=== PATIENT | female | born 1995 | race African-American/Black ===

== ENCOUNTER 2025-09-08 09:04 | Outpatient (OUT) | payer OTHER, SELFPAY ==
--- OUTSIDE RECORDS SUMMARY | 2025-02-02 09:45 | XMS_ITS ---
Author Organization [facility] [facility] Address [address] [place] [address] Care Team Providers Care Director Of Analytics Name Role Phone Liyah Lozada Primary Care Provider REASON FOR VISIT CHECK;F/U Social History Sex Assigned At : Social History Observation Description Sex Assigned At Female Encounters Encounter Location Date Provider Diagnosis [facility] [address] [facility] [place] [address] 02/02/2025 Liyah Lozada Plan Of Treatment Next Appt Details Provider Name:Enedina Deanna, 08:00:00 AM, [address], [place], [address], Provider Name:Sebastian gonzalez, 10/24/2025 10:30:00 AM, [address] [facility] , [address], [place], [address], Provider Name:Diana Cabrera, 02/06/2026 10:20:00 AM, [address], [place], [address], Progress Notes * BERRY DIMAS LDOB:1994 (29 yo F)Acc No.[id number]:02/02/2025 Progress Notes Patient: BERRY WEEMS Provider:?Liyah Lozada NPDOB:1995???Age: 29 Y???Sex:FemaleDate:02/02/2025Phone:[phone]:[address] [facility] [facility]-[id number] Subjective: * Chief Complaints: * C HECK;F/U * Electronic signature of Liyah Lozada CNP on 09/08/2025 at 09:12 AM ESTSign off status: Pending * Appointment Provider: Haily Lozada NP Date: 0 02/02/2025 Generated for Printing/Faxing/eTransmitting on:?09/08/2025 09:12 AM EST
--- OUTSIDE RECORDS SUMMARY | 2025-02-22 08:00 | XMS_ITS ---
Author Organization [facility] Address [address] [place] [address] Care Team Providers Care Sales Enablement Manager Name Role Phone Liyah Lozada Primary Care Provider Guerita Conn [phone] REASON FOR VISIT PERIO MAINT PERIO CHART BWXS Social History Sex Assigned At : Social History Observation Description Sex Assigned At Female Encounters Encounter Location Date Provider Diagnosis [facility] [address] [place] [address] 02/22/2025 Guerita Conn Plan Of Treatment Next Appt Details Provider Name:Enedina Huerta, 08:00:00 AM, [address] [place], [address], Provider Name:Sebastian gonzalez, 10/24/2025 10:30:00 AM, [address] [facility], [address], [place], [address], Provider Name:Diana Cabrera, 02/06/2026 10:20:00 AM, [address] [place], [address], Progress Notes * BERRY DIMAS LDOB:1994 (29 yo F)Acc No.[id number]:02/22/2025 Patient:?BERRY DIMAS :?Guerita ConnDOB:1995???Age:29 Y???Sex: FemaleDate:02/22/2025Phone:[phone]:[address] [place], [id number]:Liyah Lozada Subjective: * Chief Complaints: * P SIVAKUMAR MAINT PERIO CHART BWXS * Electronic signature of Guerita Conn on 09/08/2025 at 09:12 AM ESTSign off status: Pending * Provider: Miri Conn Date: 0 02/22/2025 Generated for Printing/Faxing/eTransmitting on:?09/08/2025 09:12 AM EST
--- OUTSIDE RECORDS SUMMARY | 2025-09-05 06:30 | XMS_ITS ---
Author Organization [employer] es Address [address] [facility] [place] [address] Care Team Providers Care Paid Search Specialist Name Role Phone Liyah Lozada Primary Care Provider Sebastian Parham [phone] REASON FOR VISIT Dietitian F/U Social History Sex Assigned At : Social History Observation Description Sex Assigned At Female Encounters Encounter Location Date Provider Diagnosis [place] [address] [place] [place] [address] 09/05/2025 Sebastian Parham Type 2 diabetes mellitus [...] once a week for 30 minutes Estimated [place] x 1.2 AF: 1,500 kcals/day for 2lbs/week [...] once a week for 30 minutes Estimated [place] x 1.2 AF: 1,500 kcals/day for 2lbs/week [...] once a week for 30 minutes Estimated [place] x 1.2 AF: 1,500 kcals/day for 2lbs/week [...] Deanna, 08:00:00 AM, [address], [place], [address], Provider Name:Sebastian Castillo , 10/24/2025 10:30:00 AM, [address] [facility], [address], [place], [address], Provider Name:Diana Cabrera, 02/06/2026 10:20:00 AM, [address], [place], [address], Progress Notes * BERRY DIMAS LDOB:1994 (29 yo F)Acc No.[id number]:09/05/2025 Patient:?BERRY DIMAS :?SEBASTIAN PARHAM RDDOB:1995???Age:29 Y ???Sex:FemaleDate:09/05/2025Phone:[phone]:[address] [place] [address] [id number]:Liyah Lozada Subjective: * Chief Complaints: * D [...] but other days no appetite? Grocery Shopping: [employer] Household: Self, and 2 children? Cooking: Self [...] once a week for 30 minutes? Estimated [place] x 1.2 AF: 1,500 kcals/day for 2lbs/week [...] Electronic signature of Sebastian Parham RD on 09/08/2025 at 09:13 AM ESTSign off status: Pending * Provider: Miri PARHAM RD Date: 11/05/2024 Generated for Printing/Faxing/eTransmitting on:?09/08/2025 09:13 AM EST
--- OUTSIDE RECORDS SUMMARY | 2025-09-06 23:59 | XMS_ITS | Continuity of Care Document ---
Author Organization [facility] Address [address] [place] [address] Care Team Providers Care Financial Market Dealer Name Role Phone NONE, XXXX Primary Care Physician Unavailab le Encounter FT_AMBFIN [id number] Date(s): 09/06/25 - 09/06/25 [facility] [address] [place] [address]- Encounter Diagnosis Ureteral stone(Discharge Diagnosis) - 09/06/25 Kidney stones(Discharge Diagnosis) - 09/06/25 Flank pain(Discharge Diagnosis) - 09/06/25 Discharge Disposition: Home (Routine DC) Attending Physician: Lupillo HOLLIS MD Encounter Type: Clinic Allergies, Adverse Reactions, Alerts SubstanceCriticalitySeverityReactionReaction SeverityStatusLatexunknownActive HYDROcodoneRashActive Treatment Plan Future Scheduled Tests Radiology* XR Abdomen 1 View 09/01/25 Immunizations Given and Recorded VaccineDateStatusRefusal Reasoninfluenza virus vaccine, /20/23 Recordedinfluenza virus vaccine, kjatubjhskh34/26/21Recordedinfluenza virus vaccine, inactivated07/18/21Recordedinfluenza virus vaccine, mhywoqvujgp10/5/03 Recordeddiphtheria/pertussis, acel/tetanus adult07/17/22Recorded diphtheria/pertussis, acel/tetanus adult17/6/35RwxojDBYN-NeP-4 (COVID-19) mRNA BNT-162b2 vvu804/05/2296UcgcgxtgXJUL-KcF-0 (COVID-19) mRNA BNT-162b2 vax39// Recordedpoliovirus vaccine, inactivated06/13/02Recordedpoliovirus vaccine, inactivated02/04/02RecordedDTaP, unspecified formulation02/04/02Recorded 1Reason for Medication: Other (see comment) 2Result Comment: 2025-09-06: TPVAL 3Result Comment: 2025-09-06: TPVAL Medications busPIRone Oral, BID Start Date: 09/06/25 Status: Ordered Medication Dispense Status: Completed Total Allowed Fills: 1 Fills Dispensed: 0 hydrOXYzine Start Date: 09/06/25 Status: Ordered Medication Dispense Status: Completed Total Allowed Fills: 1 Fills Dispensed: 0 Keflex 500 mg Cap 500 mg = 1 cap(s), Oral, q12hr, # 20 cap(s), Refills(s) 0, Pharmacy: [facility]/pharmacy #[id number], 160, cm, 09/06/25 15:28:00 EST, Height/Length Dosing, 132.4, kg, 09/06/25 15:28:00 EST, Weight Dosing Start Date: 09/06/25 Status: Ordered Medication Dispense Status: Completed Quantity: 20.0 Unit: cap(s) Total Allowed Fills: 1 Fills Dispensed: 0 ketorolac 10 mg Tab 10 mg = 1 tab(s), Oral, q12hr, PRN for pain, # 10 tab(s), Refills(s) 0, Pharmacy: [facility]/pharmacy #[id number], 160, cm, 09/06/25 15:28:00 EST, Height/Length Dosing, 132.4, kg, 09/06/25 15:28:00 EST, Weight Dosing Start Date: 09/06/25 Status: Ordered Medication Dispense Status: Completed Quantity: 10.0 Unit: tab(s) Total Allowed Fills: 1 Fills Dispensed: 0 Indications: Flank pain, unspecified side; Calculus of ureter; metformin Oral Start Date: 09/06/25 Status: Ordered Medication Dispense Status: Completed Total Allowed Fills: 1 Fills Dispensed: 0 sertraline 50 mg Tab 50 mg = 1 tab(s), Refills(s) 0 Start Date: 09/06/25 Status: Ordered Medication Dispense Status: Completed Total Allowed Fills: 1 Fills Dispensed: 0 tamsulosin 0.4 mg Cap 0.4 mg = 1 cap(s), Oral, Daily, Take for stone passage., # 30 cap(s), Refills(s) 0, Pharmacy: [facility]/pharmacy #[id number], 160, cm, 09/06/25 15:28:00 EST, Height/Length Dosing, 132.4, kg, 09/06/25 15:28:00 EST, Weight Dosing Start Date: 09/06/25 Status: Ordered Medication Dispense Status: Completed Quantity: 30.0 Unit: cap(s) Total Allowed Fills: 1 Fills Dispensed: 0 Indications: Calculus of ureter; Vraylar 1.5 mg oral capsule 1.5 mg = 1 cap(s), Refills(s) 0 Start Date: 09/06/25 Status: Ordered Medication Dispense Status: Completed Total Allowed Fills: 1 Fills Dispensed: 0 Problem List ConditionConfirmationCourseEffective DatesStatusHealth StatusInformantKidney stonesConfirmedActiveMixed anxiety and depressive disorderConfirmedActive TbcspwfdqSeignxenl60/1/15 - 05/06/1663TmzyixsgAnlcushqzIdxbofhas61/1/16 - 07/2017 ResolvedPyelonephritisConfirmedActiveType 2 diabetes mellitusConfirmedActive Ureteric stoneConfirmedActiveUreteral stoneConfirmedActive Procedures ProcedureDateRelated DiagnosisBody SiteStatusCesarean section03/05/17Completed Social History Social History TypeResponseSmoking StatusFormer smoker, quit more than 30 days ago; Tobacco Use: Former smoker, quit more than 30 days ago. Marijuana smoker currently.;Never entered on: 09/06/25Birth SexFemaleSex RepresentationFemale (finding) Hospital Discharge Instructions Patient Education 09/06/2025 16:32:32 Ureteral Stent Implantation, Care After Ureteral Stent Implantation, Care After The following information offers guidance on how to care for yourself after your procedure. Your health care provider may also give you more specific instructions. If you have problems or questions, contact your health care provider. What can I expect after the procedure? After the procedure, it is common to have: ??? Nausea. ??? Mild pain when you urinate. You may feel this pain in your lower back or lower abdomen. The pain should stop within a few minutes after you urinate. This pattern may last for up to 1 week. ??? A small amount of blood in your urine for several days. Follow these instructions at home: Medicines ??? Take khod-mkl-siobwka and prescription medicines only as told by your health care provider. ??? If you were prescribed antibiotics, take them as told by your health care provider. Do not stopusing the antibiotic even if you start to feel better. ??? If you were given a sedative during the procedure, it can affect you for several hours. Do not drive or operate machinery until your health care provider says that it is safe. ??? Ask your health care provider if the medicine prescribed to you: ??? Requires you to avoid driving or using machinery. ??? Can cause constipation. You may need to take these actions to prevent or treat constipation: ??? Take hcdp-npv-cpzbawf or prescription medicines. ??? Eat foods that are high in fiber, such as beans, whole grains, and fresh fruits and vegetables. ??? Limit foods that are high in fat and processed sugars, such as fried or sweet foods. Activity ??? Rest as told by your health care provider. ??? Do not sit for a long time without moving. Get up to take short walks every 1???2 hours. This will improve blood flow and breathing. Ask for help if you feel weak or unsteady. ??? Return to your normal activities as told by your health care provider. Ask your health care provider what activities are safe for you. General instructions ??? If you have a catheter: ??? Follow instructions from your health care provider about taking care of your catheter and collection bag. ??? Do not take baths, swim, or use a hot tub until your health care provider approves. Ask your health care provider if you may take showers. You may only be allowed to take sponge baths. ??? Drink enough fluid to keep your urine pale yellow. ??? Do not use any products that contain nicotine or tobacco. These products include cigarettes, chewing tobacco, and vaping devices, such as e-cigarettes. These can delay healing after surgery. If you need help quitting, ask your health care provider. ??? Keep all follow-up visits. Contact a health care provider if: ??? You start passing blood clots, or you have more than a small amount of blood in your urine. ??? You have pain that gets worse or does not get better with medicine, especially pain when you urinate. ??? You have trouble urinating. ??? You feel nauseous or you vomit again and again during a period of more than 2 days after the procedure. ??? You have a fever. Get help right away if: ??? You are passing blood clots that are 1 inch (2.5 cm) or larger in size. ??? You are leaking urine (have incontinence), or you cannot urinate. ??? The end of the stent comes out of your urethra. ??? You have sudden, sharp, or severe pain in your abdomen or lower back. ??? You have swelling or pain in your legs. ??? You have trouble breathing. These symptoms may be an emergency. Get help right away. Call 911. ??? Do not wait to see if the symptoms will go away. ??? Do not drive yourself to the hospital. Summary ??? After the procedure, it is common to have mild pain when you urinate that goes away within a few minutes after you urinate. This may last for up to 1 week. ??? Take vrwz-eat-htnhldy and prescription medicines only as told by your health care provider. ??? Drink enough fluid to keep your urine pale yellow. ??? Call your health care provider if you start passing blood clots, or you have more than a small amount of blood in your urine. This information is not intended to replace advice given to you by your health care provider. Make sure you discuss any questions you have with your health care provider. Document Revised: 11/24/2022 Document Reviewed: 11/24/2022 [employer] Patient Education ?? 2023 [employer] 09/06/2025 16:32:31 Ureteral Stent Implantation Ureteral Stent Implantation Ureteral stent implantation is a procedure to insert (implant) a flexible, soft, plastic tube (stent) into a ureter. Ureters are the tubelike parts of the body that drain urine from the kidneys. A ureteral stent may be implanted: ??? After a procedure to remove a blockage from the ureter (ureterolysis or pyeloplasty). ??? To open the flow of urine when a blockage is caused by a kidney stone, tumor, blood clot, or infection. You have two ureters, one on each side of your body. The ureters connect your kidneys to your bladder. The stent is placed so that one end is in your kidney, and one end is in your bladder. The stentsupports the ureter while it heals and helps to drain urine. The stent is usually taken out after your ureter has healed. Depending on your condition, you may have a stent for just a few weeks, or you may have a long-term stent that will need to be replaced every few months. Tell a health care provider about: ??? Any allergies you have. ??? All medicines you are taking, including vitamins, herbs, eye drops, creams, and hezj-dec-wedfqtl medicines. ??? Any problems you or family members have had with anesthetic medicines. ??? Any bleeding problems you have. ??? Any surgeries you have had. ??? Any medical conditions you have. ??? Whether you are or may be . What are the risks? Generally, this is a safe procedure. However, problems may occur, including: ??? Infection. ??? Bleeding. ??? Allergic reactions to medicines. ??? Damage to nearby structures or organs, such as tearing (perforation) of the ureter. ??? Movement of the stent away from where it is placed during surgery (migration). ??? Buildup of a crust or hard coating (encrustation) on the stent. This happens when bacteria in the body form crystals on the stent, causing it to weaken. What happens before the procedure? Medicines Ask your health care provider about: ??? Changing or stopping your regular medicines. These include any diabetes medicines or blood thinners you take. ??? Taking medicines such as aspirin and ibuprofen. These medicines can thin your blood. Do not take them unless your health care provider tells you to. ??? Taking vupe-lkq-arzzfpy medicines, vitamins, herbs, and supplements. When to stop eating and drinking Follow instructions from your health care provider about what you may eat and drink. These may include: ??? 8 hours before your procedure ??? Stop eating most foods. Do not eat meat, fried foods, or fatty foods. ??? Eat only light foods, such as toast or crackers. ??? All liquids are okay except energy drinks and alcohol. ??? 6 hours before your procedure ??? Stop eating. ??? Drink only clear liquids, such as water, clear fruit juice, black coffee, plain tea, and sportsdrinks. ??? Do not drink energy drinks or alcohol. ??? 2 hours before your procedure ??? Stop drinking all liquids. ??? You may be allowed to take medicines with small sips of water. If you do not follow your health care provider's instructions, your procedure may be delayed or canceled. General instructions ??? Do not use any products that contain nicotine or tobacco for at least 4 weeks before the procedure. These products include cigarettes, chewing tobacco, and vaping devices, such as e-cigarettes. If you need help quitting, ask your health care provider. ??? You may have an exam or testing, such as imaging or blood tests. ??? If you will be going home right after the procedure, plan to have a responsible adult: ??? Take you home from the hospital or clinic. You will not be allowed to drive. ??? Care for you for the time you are told. ??? Ask your health care provider what steps will be taken to help prevent infection. These steps may include: ??? Removing hair at the surgery site. ??? Washing skin with a soap that kills germs. ??? Taking antibiotic medicine. What happens during the procedure? An IV will be inserted into one of your veins. ??? You may be given: ??? A medicine to help you relax (sedative). ??? A medicine to make you fall asleep (general anesthetic). ??? A thin, tube-shaped instrument with a light and tiny camera at the end (cystoscope) will be inserted into your urethra. The urethra is the part of your body that drains urine from the bladder. The urethra opens at the end of the penis or in front of the vaginal opening. ??? The cystoscope will be passed into your bladder. ??? Guided imagery using X-ray may be used to pass a thin wire (guide wire) through your bladder and into your ureter. This wire is used to guide the stent into your ureter. ??? The stent will be inserted into your ureter. ??? The guide wire and the cystoscope will be removed. ??? A thin, flexible tube (catheter) may be put through your urethra so that one end is in your bladder. This helps to drain urine from your bladder. The procedure may vary among hospitals and health care providers. What happens after the procedure? Your blood pressure, heart rate, breathing rate, and blood oxygen level will be monitored untilyou leave the hospital or clinic. ??? You may continue to get medicine and fluids through an IV. ??? You may have some soreness or pain in your abdomen and urethra. You may be given medicines for this. ??? You will be encouraged to get up and walk around as soon as you can. ??? You may have a catheter draining your urine. Summary ??? Ureteral stent implantation is a procedure to insert a flexible, soft, plastic tube (stent) into a ureter. ??? You may have a stent implanted to support the ureter while it heals after a procedure or to open the flow of urine if there is a blockage. ??? You may have a stent for just a few weeks, or you may have a long-term stent that will need to be replaced every few months. ??? Follow instructions from your health care provider about taking medicines and about eating and drinking before the procedure. This information is not intended to replace advice given to you by your health care provider. Make sure you discuss any questions you have with your health care provider. Document Revised: 11/24/2022 Document Reviewed: 11/24/2022 [employer] Patient Education ?? 2023 [employer] 09/06/2025 16:32:27 Laser Therapy for Kidney Stones, Care After Laser Therapy for Kidney Stones, Care After After laser therapy for kidney stones, it is common to have: ??? Pain. ??? A burning feeling when you pee (urinate). ??? Small amounts of blood in your pee (urine). ??? A need to pee a lot. ??? Parts of the kidney stone in your pee. ??? Mild discomfort in your back when you pee. You may have this if you had a small mesh tube (stent) placed during the procedure. Follow these instructions at home: Medicines ??? Take thwj-ieb-votdhqh and prescription medicines only as told by your health care provider. ??? If you were prescribed antibiotics, take them as told by your provider. Do not stop using the antibiotic even if you start to feel better. ??? Ask your provider if the medicine prescribed to you: ??? Requires you to avoid driving or using machinery. ??? Can cause constipation. You may need to take these actions to prevent or treat constipation: ??? Drink enough fluid to keep your pee pale yellow. ??? Take gtlk-mgc-aquhusk or prescription medicines. ??? Eat foods that are high in fiber, such as beans, whole grains, and fresh fruits and vegetables. ??? Limit foods that are high in fat and processed sugars, such as fried or sweet foods. Activity ??? If you were given a sedative during the procedure, it can affect you for several hours. Do not drive or operate machinery until your provider says that it is safe. ??? Return to your normal activities as told by your provider. Ask your provider what activities are safe for you. General instructions ??? Your provider may recommend that you drink a lot of water for a few hours after your procedure.If you have heart or kidney disease, ask your provider how much you should drink. ??? You may be asked to strain your pee to collect any stone pieces that you pass. Your provider may have these pieces tested. ??? Do not take baths, swim, or use a hot tub until your provider approves. Ask your provider if you may take warm baths to soothe the burning. ??? Keep all follow-up visits. If you have a stent, you will need to go back to your provider to have it removed. Your provider may give you more instructions. Make sure you know what you can and cannot do. Contact a health care provider if: ??? You have pain or a burning feeling that lasts for more than 2 days. ??? You feel nauseous. ??? You vomit more and more often. ??? You have trouble peeing. ??? You have pain that gets worse or does not get better with medicine. ??? You have a fever or shaking chills. Get help right away if: ??? You cannot pee, even when your bladder feels full. ??? You faint. ??? You have chest pain, shortness of breath, or cough up blood. ??? You have: ??? Bright red blood or blood clots in your pee. ??? Severe pain or discomfort. ??? Pain in your abdomen. ??? Swelling in your legs. These symptoms may be an emergency. Get help right away. Call 911. ??? Do not wait to see if the symptoms will go away. ??? Do not drive yourself to the hospital. This information is not intended to replace advice given to you by your health care provider. Make sure you discuss any questions you have with your health care provider. Document Revised: 06/19/2023 Document Reviewed: 06/19/2023 [employer] Patient Education ?? 2023 [employer]. 09/06/2025 16:32:26 Laser Therapy for Kidney Stones Laser Therapy for Kidney Stones Laser therapy for kidney stones is a procedure to break up rock-like masses that form inside the kidneys (kidney stones). It is done using a device that beams a strong light (laser) on the kidney stones. This breaks the stones up into small pieces. These small pieces may leave your body when you pee (urinate) or may be taken out during the procedure. You may need laser therapy if you have kidney stones that are painful or that are stopping you frombeing able to pee. Tell a health care provider about: ??? Any allergies you have. ??? All medicines you are taking, including vitamins, herbs, eye drops, creams, and sdrd-yjv-rnbztrx medicines. ??? Any problems you or family members have had with anesthesia. ??? Any bleeding problems you have. ??? Any surgeries you have had. ??? Any medical conditions you have. ??? Whether you are or may be . What are the risks? Your health care provider will talk with you about risks. These may include: ??? Infection. ??? Bleeding. ??? Allergic reactions to medicines. ??? Damage to: ??? The part of your body that drains pee (urine) from the bladder (urethra). ??? The bladder. ??? The tube that connects the bladder to the kidneys (ureter). ??? Urinary tract infection (UTI). ??? Urethral stricture. This is when the urethra is narrowed by scarring. ??? Trouble peeing. ??? Blockage of the kidney. This may be caused by a piece of kidney stone. What happens before the procedure? When to stop eating and drinking Follow instructions from your provider about what you may eat and drink. These may include: ??? 8 hours before the procedure ??? Stop eating most foods. Do not eat meat, fried foods, or fatty foods. ??? Eat only light foods, such as toast or crackers. ??? All liquids are okay except energy drinks and alcohol. ??? 6 hours before the procedure ??? Stop eating. ??? Drink only clear liquids, such as water, clear fruit juice, black coffee, plain tea, and sportsdrinks. ??? Do not drink energy drinks or alcohol. ??? 2 hours before the procedure ??? Stop drinking all liquids. ??? You may be allowed to take medicines with small sips of water. ??? If you do not follow your provider's instructions, your procedure may be delayed or canceled. Medicines ??? Ask your provider about: ??? Changing or stopping your regular medicines. These include any diabetes medicines or blood thinners you take. ??? Taking medicines such as aspirin and ibuprofen. These medicines can thin your blood. Do not take them unless your provider tells you to. ??? Taking bngk-hly-ygtdjkd medicines, vitamins, herbs, and supplements. Tests ??? You may have a physical exam before the procedure. You may also have tests done. These may include: ??? Imaging tests. ??? Blood or pee tests. Surgery safety ??? Ask your provider: ??? How your surgery site will be marked. ??? What steps will be taken to help prevent infection. These steps may include: ??? Removing hair at the surgery site. ??? Washing skin with a soap that kills germs. ??? Taking antibiotics. General instructions ??? Do not use any products that contain nicotine or tobacco for at least 4 weeks before the procedure. These products include cigarettes, chewing tobacco, and vaping devices, such as e-cigarettes. If you need help quitting, ask your provider. ??? If you will be going home right after the procedure, plan to have a responsible adult: ??? Take you home from the hospital or clinic. You will not be allowed to drive. ??? Care for you for the time you are told. What happens during the procedure? An IV will be inserted into one of your veins. ??? You will be given: ??? A sedative. This helps you relax. ??? Anesthesia. This keeps you from feeling pain. It will make you fall asleep for surgery. ??? A tool with a camera on the end (ureteroscope) will be put into your urethra. It will be moved through your bladder to your kidney. It will send pictures to a screen in the operating room. This will show what parts of your kidney need to be treated. ??? A tube will be put through the ureteroscope. It will be moved into your kidney. ??? The laser device will be put into your kidney through the tube. The laser will be used to breakup the kidney stones. ??? A tool with a tiny wire basket may be put through the tube into your kidney. This can help remove the small pieces of the kidney stone. ??? A small mesh tube (stent) may be placed to allow your kidney to drain. ??? The tube and ureteroscope will be taken out at the end of the surgery. The procedure may vary among providers and hospitals. What happens after the procedure? Your blood pressure, heart rate, breathing rate, and blood oxygen level will be monitored untilyou leave the hospital or clinic. ??? If you had a stent placed, it may have a string that will be secured to your skin. This helps your provider remove the stent. ??? You may be given a strainer to collect any stone pieces that you pass in your pee. Your provider may have these tested. This information is not intended to replace advice given to you by your health care provider. Make sure you discuss any questions you have with your health care provider. Document Revised: 06/19/2023 Document Reviewed: 06/19/2023 [employer] Patient Education ?? 2023 [employer] 09/06/2025 16:12:37 Kidney Stones, Gueg-ju-Iodr Kidney Stones Kidney stones are rock-like masses that form inside of the kidneys. Kidneys are organs that make pee (urine). A kidney stone may move into other parts of the urinary tract, including: ??? The tubes that connect the kidneys to the bladder (ureters). ??? The bladder. ??? The tube that carries urine out of the body (urethra). Kidney stones can cause very bad pain and can block the flow of pee. The stone usually leaves your body through your pee. A doctor may need to take out the stone. What are the causes? Kidney stones may be caused by: ??? Too much calcium in the body. This may be caused by too much parathyroid hormone in the blood. ??? Uric acid crystals in the bladder. The body makes uric acid when you eat certain foods. ??? Narrowing of one or both of the ureters. ??? A kidney blockage that you were born with. ??? Past surgery on the kidney or the ureters. What increases the risk? You are more likely to develop this condition if: ??? You have had a kidney stone in the past. ??? Other people in your family have had kidney stones. ??? You do not drink enough water. ??? You eat a diet that is high in protein, salt (sodium), or sugar. ??? You are very overweight (obese). What are the signs or symptoms? Symptoms of a kidney stone may include: ??? Pain in the side of the belly, right below the ribs. Pain usually spreads to the groin. ??? Needing to pee often or right away. ??? Pain when peeing. ??? Blood in your pee. ??? Feeling like you may vomit (nauseous). ??? Vomiting. ??? Fever and chills. How is this treated? Treatment depends on the size, location, and makeup of the kidney stones. The stones will often pass out of the body when you pee. You may need to: ??? Drink more fluid to help pass the stone. ??? In some cases, you may be given fluids through an IV tube at the hospital. ??? Take medicine for pain. ??? Change your diet to help keep kidney stones from coming back. Sometimes, you may need: ??? A procedure to break up kidney stones using a beam of light (laser) or shock waves. ??? Surgery to remove the kidney stones. Follow these instructions at home: Medicines ??? Take dosa-fhz-mbcgrrt and prescription medicines only as told by your doctor. ??? Ask your doctor if the medicine prescribed to you requires you to avoid driving or using machinery. Eating and drinking ??? Drink enough fluid to keep your pee pale yellow. ??? You may be told to drink at least 8???10 glasses of water each day. This will help you pass thestone. ??? If told by your doctor, change your diet. You may be told to: ??? Limit how much salt you eat. ??? Eat more fruits and vegetables. ??? Limit how much meat, poultry, fish, and eggs you eat. ??? Follow instructions from your doctor about what you may eat and drink. General instructions ??? Collect pee samples as told by your doctor. You may need to collect a pee sample: ??? 24 hours after a stone comes out. ??? 8???12 weeks after a stone comes out, and every 6???12 months after that. ??? Strain your pee every time you pee. Use the strainer that your doctor recommends. ??? Do not throw out the stone. Keep it so that it can be tested by your doctor. ??? Keep all follow-up visits. You may need X-rays and ultrasounds to make sure the stone has come out. How is this prevented? To prevent another kidney stone: ??? Drink enough fluid to keep your pee pale yellow. This is the best way to prevent kidney stones. ??? Eat healthy foods. ??? Avoid certain foods as told by your doctor. You may be told to eat less protein. ??? Stay at a healthy weight. Where to find more information ??? National Kidney Foundation (NKF): kidney.org ??? [employer] (UCF): urologyhealth.org Contact a doctor if: ??? You have pain that gets worse or does not get better with medicine. Get help right away if: ??? You have a fever or chills. ??? You get very bad pain. ??? You get new pain in your belly. ??? You faint. ??? You cannot pee. This information is not intended to replace advice given to you by your health care provider. Make sure you discuss any questions you have with your health care provider. Document Revised: 06/12/2023 Document Reviewed: 06/12/2023 Elsevier Patient Education ?? 2023 [employer] Follow Up Care 09/01/2025 09:51:59 With:TELMA LAWSON, Lupillo Franklin, URL Address: [facility] [facility] [place] [address] When: Unknown Comments:sched??cysto, L URS, laser litho/basket extraction, stent placement Patient Care team information Care Team Personnel Name: Julia Howell Position: ProFit: Claims Followup Rep (Butch) Member Role: ProFit: Claims Followup Rep (Butch) Name: NONE, XXXX Position: FT Physician Member Role: Primary Care Physician Address: [facility] Care Team Related Persons Name: DAVEY DIMAS Name: Imelda Peters Name: SHAWN CHRISTENSEN Insurance Providers Guarantor name[facility] Information [facility]: 1 Payer: [facility] Payer Identifier: [id number] Member Number: [id number] Group Number: [id number] Subscriber Identifier: [id number] Relationship to Subscriber: self Coverage Type: MEDICAID Coverage Verification Date: 25 Telecom: [phone] Address: [facility] [address] [place] [address]
--- OUTSIDE RECORDS SUMMARY | 2025-09-06 23:59 | XMS_ITS | Continuity of Care Document ---
Author Organization [facility] Address Unknown Care Team Providers Care Trauma Coordinator Name Role Phone NONE, XXXX Primary Care Physician Unavailab le Encounter [facility] [id number] Date(s): 09/06/25 - 09/06/[address] [address] Discharge Disposition: Home (Routine DC) Attending Physician: Lupillo HOLLIS MD Admitting Physician: Lupillo HOLLIS MD Encounter Type: Outpatient Allergies, Adverse Reactions, Alerts SubstanceCriticalitySeverityReactionReaction SeverityStatusLatexunknownActive HYDROcodoneRashActive Treatment Plan Future Scheduled Tests Radiology* XR Abdomen 1 View 09/01/25 Immunizations Given and Recorded VaccineDateStatusRefusal Reasoninfluenza virus vaccine, fihstzkbfza93/20/23 Recordedinfluenza virus vaccine, qmxsmtirzoi60/26/21Recordedinfluenza virus vaccine, inactivated07/18/21Recordedinfluenza virus vaccine, brfepbqxxnx36/5/03 Recordeddiphtheria/pertussis, acel/tetanus adult07/17/22Recorded diphtheria/pertussis, acel/tetanus adult/04/1794WjsfxXSJD-GcS-3 (COVID-19) mRNA BNT-162b2 cpg448/05/2292FawefimkOPTX-YdC-2 (COVID-19) mRNA BNT-162b2 vax3/ Recordedpoliovirus vaccine, inactivated06/13/02Recordedpoliovirus vaccine, inactivated02/04/02RecordedDTaP, unspecified formulation02/04/02Recorded [...] q12hr, # 20 cap(s), Refills(s) 0, [id number], cm, 09/06/25 15:28:00 EST, Height/Length Dosing, 132.4, kg, 09/06/25 15:28:00 EST, Weight Dosing Start Date: 09/06/25 Status: Ordered Medication Dispense Status: Completed Quantity: 20.0 Unit: cap(s) Total Allowed Fills: 1 Fills Dispensed: 0 ketorolac 10 mg Tab 10 mg = 1 tab(s), Oral, q12hr, PRN for pain, # 10 tab(s), Refills(s) 0, Pharmacy: [facility]/pharmacy #[id number], 160, cm, 09/06/25 15:28:00 EST, [...] passage., # 30 cap(s), Refills(s) 0, Pharmacy: [facility]/pharmacy #[id number], 160, cm, 09/06/25 15:28:00 EST, [...] DatesStatusHealth StatusInformantKidney stonesConfirmedActiveMixed anxiety and depressive disorderConfirmedActive XmfjcorbkXkryejcic37/1/15 - 05/06/1652ZmacxbrdWtlvyxwowDzygfaghn39/1/16 - 07/2017 ResolvedPyelonephritisConfirmedActiveType 2 diabetes mellitusConfirmedActive Ureteric stoneConfirmedActiveUreteral stoneConfirmedActive Procedures ProcedureDateRelated DiagnosisBody SiteStatusCesarean section03/05/17Completed Social History Social History TypeResponseSmoking StatusFormer smoker, quit more than 30 days ago; Tobacco Use: Former smoker, quit more than 30 days ago. Marijuana smoker currently.;Never entered on: 09/06/25Birth SexFemaleSex RepresentationFemale (finding) Patient Care team information Care Team Personnel Name: Julia Howell Position: ProFit: Claims Followup Rep (Butch) Member Role: ProFit: Claims Followup Rep (Butch) Name: NONE, XXXX Position: FT Physician Member Role: Primary Care Physician Address: [facility] Care Team Related Persons Name: DAVEY DIMAS Name: Imelda Peters Name: SHAWN CHRISTENSEN Insurance Providers Guarantor [facility] Information #: 1 Payer: [facility] Payer Identifier: [id number] Member Number: [id number] Group Number: [id number] Subscriber Identifier: [id number] Relationship to Subscriber: self Coverage Type: MEDICAID Coverage Verification Date: NA Telecom: [phone] Address: [facility] [address] [place] [address]
--- OUTSIDE RECORDS SUMMARY | 2025-09-07 10:49 | XMS_ITS | Continuity of Care Document ---
Author Organization [facility] Address [address] [place] [address] Phone Care Team Providers Care Seo Executive Name Role Phone Liyah Lozada Attending Provider [phone] [facility] Primary Care Prov ider [facility] Primary Care Provider Lupillo Lobo DO Emergency Provider Rupert Adams MD Attending Provider [phone] Care Teams Patient Care Team Team Status: Active Member Role/Relationship Status Dates Services [facility] Primary Care Provider Active Visit Care Team Team Status: Inactive Member Role/Relationship Status Dates AGA Wise Attending Provider Active Start: August 08, 2025 End: August 08, 2025[facility] Start: August 08, 2025 End: August 08, 2025 Visit Care Team Team Status: Inactive Member Role/Relationship Status Dates Services [facility] Primary Care Provider Active Start: August 18, 2025 End: August 18, 2025Xochilt Estrada ProviderActiveStart: August 18, 2025 End: August 18, 2025 Patient Care Team Team Status: Inactive Member Role/Relationship Status Dates Rupert Adams MD Attending Provider Active S tart: September 07, 2025 End: September 07, 2025[facility] ProviderActiveStart: September 07, 2025 End: September 07, 2025 Chief Complaint and Reason for Visit Chief Complaint Admit Date L02.32 E11.9 August 08, 2025 3: 45pm Back pain August 18, 2025 7 :37am G47.30 R06.83 E66.01 September 07, 2025 2:17pm Allergies, Adverse Reactions, Alerts Allergen Type Severity Reaction Last Updated Verified Status hydrocodone Adverse Reaction Unknown Rash August 18, 2025 6:44am Yes Active latex Adverse Reaction Unknown itchy August 18, 2025 6:44am Yes Active Social History Smoking Status Status Start Date End Date Date of Observa tion Ex-smoker (finding) August 18, 2025 8:28am Observation Status Observation Response Date of Response Legal Sex Female (finding) Sex Assigned At BirthFemaleDecemb 1994 Problems Active Problems Problem Diagnosis/Recorded Date Onset Date Status C omments Sleep phase syndrome, advanced September 07, 2025 3:21pm U nknown Active Sleep apneaSeptember 07, 2025 3:21pmUnknownActiveRestless leg syndromeSeptember 07, 2025 3:21pmUnknownActiveIron deficiencySeptember 07, 2025 3:21pmUnknown ActiveInactive/Resolved Problems Problem Diagnosis/Recorded Date Onset Date Status C omments Cellulitis February 11, 2023 6:45am Unknown Resolved P roblem List clean-up per request of Phys. EHR Cmte Pyelonephritis April 18, 2024 3:26pm Unknown Resolved UreterolithiasisOct2024 9:59amUnknownResolvedHemorrhoidsApril 2022 6:45amUnknownResolvedProblem List clean-up per request of Phys. EHR Cmte Anal painApril 2022 6:45amUnknownResolvedProblem List clean-up per request of Phys. EHR Cmte Medications Medication Status Dose Units Route Directions Qty Days Refills S tart Date Stop Date End Date Reason(s) Instructions Adherence Ibuprofen 800 mg tablet Discontinued 800 MG PO every 6 to 8 hours as needed for pain 30 0September 2017 11:00pmSeptember 07, 2025 2:30pmPsyllium Husk (Metamucil) 0.4 gram capsuleDiscontinued0.6KRHIXwijf82694Iswpw 2022 11:00pmJune 2023 1:24pmCephalexin 500 mg vmvzlnwNbkymhzjbchh801LSARApzdr ufxle6184Jxccx 2022 11:00pmJune 2023 1:23pmPramoxine (Proctofoam) 1 % foam Ejxhgvlmfuik2ASIFVBNHAoxbs as needed for yesm1463Lfcmv 2022 6:45amJune 2023 1:26pmBuspirone 30 mg rtgkudVgkrqv87ELZTClgsn dailyJune 2023 11:00pmComplies with drug therapyDulaglutide (Trulicity) 0.75 mg/0.5 mL pen injectorDiscontinued0.75MGSUBCUTevery weekJun2023 11:00pmNov2024 2:30pmMetformin 500 mg kkmunwAfaafe696MFYCWgsyy dailyJun2023 11:00pmComplies with drug therapyHydroxyzine Hcl 25 mg jlkkocVpmmat76VKZZMcetc at bedtime as needed for insomniaJun2023 11:00pmComplies with drug therapyErgocalciferol (Vitamin D2) 1,250 mcg (50,000 unit) capsuleDiscontinued 1250MCGPOevery Jun2023 11:00pmNov2024 2:30pmSertraline 50 mg bimkgcQwgahy76KJKKTkkyxXfbo 2023 11:00pmComplies with drug therapy Cariprazine (Vraylar) 1.5 mg capsuleActive1.5MGPODailyJune 2023 11:00pm Complies with drug therapyCephalexin 500 mg ngmkkfvHgrrkkgmviuw809EIMYScea times nkdjr88362Kmpp 16th, 2024 11:00pmNov2024 2:30pmOndansetron 4 mg tablet,ybodibqumcwuclZedcmqgcrnvc2NMMGSyfh times daily as needed for nausea and mrurvqpu733Lxbq 16th, 2024 11:00pmSeptember 07, 2025 2:30pmNaproxen (Naprosyn) 500 mg hpnhyjXhyyxmlujnpo040SSNMToptg daily as needed for rlwc614Nsks2023 11:00pmNov2024 2:30pmIbuprofen 800 mg mmfgyzYaodpeytqwua157XESERloxi times daily as needed for Chbw259Arseuwi 2024 11:00pmNov2024 2:30pmOxycodone-Acetaminophen (Percocet) 5-325 mg lizmglSnsxfu4AJYDGE5A as needed for Wxws8549Ctxwibvalculus of ureter Calculus of ureterComplies with drug therapyTamsulosin (Flomax) 0.4 mg capsule Active0.3ERMRWuhdl457Smxutyg 16th, 2025 11:00pmComplies with drug therapy Cephalexin 500 mg JabkkxpNcpajlvvevdl091FTDQPpxqs 8 sniah6746Ymzkxql 2024 11:00pmNov2024 2:30pmOndansetron 4 mg tablet,disintegrating Sycbyigpedjc4KOJMfnipt 6 to 8 rodoj398Gopmnri 16th, 2025 11:00pmNov2024 2:30pm Procedures Procedure Date Performed Status CT abdomen pelvis wo con August 18, 2025 7:44 am completed Urine Culture August 18, 2025 completed Relevant Diagnostic Tests and/or Laboratory Data Laboratory Results Test Collection Date/Time Result Date/Time Result Interpretation Reference Range Result Comment Performing Site Corrected White Blood Count August 08, 2025 2:45pm August 08, 2025 9:27pm 10.0 10*3/uL 3.8-11.6[facility] [id number] [address] [facility] [address]Gbyukbzlb White Blood CountOctober 2024 8:04amOctober 2024 8:19am12.7 10*3/uLAbove high normal3.8-11.6FMercer [facility] [id number] [address] [facility] 424[address]Gzjbktbvmpq WBC CountOctober 2024 2:45pmOctober 2024 9:27pm10.0 10*3/uL3.8-11.6FMercer [facility] [id number] [address] [facility] 74808Mcpiatanzfk WBC CountOctober 2024 8:04amOctober 2024 8:19am12.7 10*3/uLAbove high normal3.8-11.6FMercer County [facility] [id number] [address] [facility] 35643Tcs Blood CountOctober 2024 2:45pmOctober 2024 9:27pm 4.77 10*6/uL3.60-5.00[facility] [id number] [address] [facility] 61953Lud Blood CountOctober 2024 8:04amOctober 2024 8:19am4.76 10*6/uL3.60-5.00[facility] [id number] [address] [place] [address] 43107WbgwkyxujwLoohtqp 2024 2:45pmOctober 2024 9:27pm13.3 g/dL11.8-15.4FMercer County [facility] [id number] [address] [place] [address] 74025LrameiinmlDpksfvy 2024 8:04amOctober 2024 8:19am 13.1 g/dL11.8-15.4FMercer County [facility] [id number] [address] [place] [address] 05630IehybyowajLuccntp 2024 2:45pmOctober 2024 9:27pm39.8 %34.0-46.4FMercer County [facility] [id number] [address] [place] [address] 59268ChpsbswiixAhdowjs 2024 8:04amOctober 2024 8:19am 39.3 %34.0-46.4FMercer County [facility] [id number] [address] [place] [address] 45512Lcjb Corpuscular VolumeOctober 2024 2:45pmOctober 2024 9:27pm83.4 rJ61-192Exxdgkqmf[address] [place] [address] Ctr [id number] [address] [place] [address] 65082Iqgd Corpuscular VolumeOctober 2024 8:04amOctober 2024 8:19am82.5 uU94-031Yesdnvglt[address] [place] [address] Ctr [id number] [address] [place] [address] 52973Jnob Corpuscular HemoglobinOctober 2024 2:45pmOctober 2024 9:27pm27.8 pg24.7-34.3FMercer County Community [facility] [id number] [address] [facility] 33986Xtzt Corpuscular HemoglobinOctober 2024 8:04amOctober 2024 8:19am27.5 pg24.7-34.3FMercer County Community Hospital [facility] [id number] [address] [place] [address] 66997Udrw Corpuscular Hemoglobin ConcentOctober 2024 2:45pm August 08, 2025 9:27pm33.3 g/dL32.0-35.0[facility] [id number] [address] [place] [address] 86246Hpun Corpuscular Hemoglobin ConcentOctober 2024 8:04am August 18, 2025 8:19am33.3 g/dL32.0-35.0[facility] [id number] [address] [place] [address] 52520Tsx Cell Distribution WidthOctober 2024 2:45pmOctober 2024 9:27pm13.9 %11.9-15.3FMercer [facility] [id number] [address] [place] [address] 88657Kfe Cell Distribution WidthOctober 2024 8:04amOctober 2024 8:19am13.8 %11.9-15.3FMercer County [facility] [id number] [address] [place] [address] 92217Tphlpnrc CountOctober 2024 2:45pmOctober 2024 9:27pm 413 10*3/fF065-314OlwrcyshpMercy Health [facility] Hospital [facility] [id number] [address] [place] [address] 64426Aazvqayy CountOctober 2024 8:04amOctober 2024 8:61cb835 10*3/sI017-178NwssploqwMercy Health [facility] Hospital [facility] [id number] [address] [place] [address] 66071Mkhr Platelet VolumeOctober 2024 2:45pmOctober 2024 9:27pm8.7 fL6.3-10.7FMercer County Community Hospital [facility] [id number] [address] [place] [address] 82053Vdma Platelet VolumeOctober 2024 8:04amOctober 2024 8:19am7.6 fL6.3-10.7FMercer County Community Hospital [facility] [id number] [address] [facility] 739[address]Nnovnabr Distribution WidthOctober 2024 8:04amOctober 2024 8:19am18.21 %0.00-20.00[facility] [id number] [address] [facility] 49250Zfgeodrotjl (%) (Auto)August 08, 2025 2:45pmOctober 2024 9:27pm47.8 %.[facility] [id number] [address] [facility] 48351Evqwwqylhdn (%) (Auto)August 18, 2025 8:04amOctober 2024 8:19am63.7 %.[facility] [id number] [address] [facility] 07742Erueuxjqczg (%) (Auto)August 08, 2025 2:45pmOctober 2024 9:27pm42.8 %.[facility] [id number] [address] [facility] 30730Inqoolasbco (%) (Auto)August 18, 2025 8:04amOctober 2024 8:19am26.4 %.[facility] [id number] [address] [facility] [place] [address]Dsiukzsfm (%) (Auto)August 08, 2025 2:45pmOctober 2024 9:27pm6.3 %.[facility] [id number] [address] [facility] 66222Sihjnzllx (%) (Auto)August 18, 2025 8:04amOctober 2024 8:19am7.1 %.[facility] [id number] [address] [facility] [address]Asrqikkpnop (%) (Auto)August 08, 2025 2:45pmOctober 2024 9:27pm2.4 %.[facility] [id number] [address] [facility] [place] [address]Awllktsvoqr (%) (Auto)August 18, 2025 8:04amOctober 2024 8:19am1.8 %.[facility] [id number] [address] [facility] 32623Vammfuuko (%) (Auto)August 08, 2025 2:45pmOctober 2024 9:27pm0.7 %.[facility] [id number] [address] [facility] 99933Aqyqbjjje (%) (Auto)August 18, 2025 8:04amOctober 2024 8:19am1.0 %.[facility] [id number] [address] [facility] 61965Smjdqunfd RBC Relative Count (auto)August 08, 2025 2:45pm August 08, 2025 9:27pm0.2 /100{WBC}0-0.5FMercer [facility] [id number] [address] [facility] 580[address]Xvsymitul RBC Relative Count (auto)August 18, 2025 8:04am August 18, 2025 8:19am0.1 /100{WBC}0-0.5FMercer [facility] [id number] [address] [facility] 577[address]Nlmxflzwnup # (Auto)August 08, 2025 2:45pmOctober 2024 9:27pm4.8 10*3/uL1.8-7.7FMercer [facility] [id number] [address] [facility] 036[address]Kpmzrpqdqcp # (Auto)August 18, 2025 8:04amOctober 2024 8:19am8.1 10*3/uLAbove high normal1.8-7.7FMercer [facility] [id number] [address] [facility] 23743Oqycfhbihbx # (Auto)August 08, 2025 2:45pmOctober 2024 9:27pm4.3 10*3/uL1.00-4.8[facility] [id number] [address] [facility] 095[address]Fchfsvygqyo # (Auto)August 18, 2025 8:04amOctober 2024 8:19am3.3 10*3/uL1.00-4.8[facility] [id number] [address] [facility] 31897Nsywmtoqy # (Auto)August 08, 2025 2:45pmOctober 2024 9:27pm0.6 10*3/uL0.0-0.8[facility] [id number] [address] [facility] [address]Vamurlxkv # (Auto)August 18, 2025 8:04amOctober 2024 8:19am0.9 10*3/uLAbove high normal0.0-0.8[facility] [id number] [address] [facility] 013[address]Vbxhjsylyba # (Auto)August 08, 2025 2:45pmOctober 2024 9:27pm0.2 10*3/uL0.0-0.45[facility] [id number] [address] [facility] 61381Ewewhfxcrez # (Auto)August 18, 2025 8:04amOctober 2024 8:19am0.2 10*3/uL0.0-0.45[facility] [id number] [address] [facility] [address]Ieupkjljt # (Auto)August 08, 2025 2:45pmOctober 2024 9:27pm0.1 10*3/uL0.0-0.2FMercer County Community [facility] [id number] [address] [place] 1013770Basophils # (Auto)August 18, 2025 8:04amOctober 2024 8:19am0.1 10*3/uL0.0-0.2FMercer County [facility] [id number] [address] [facility] 823[address]Ycoaz ColorOctober 2024 6:46amOctober 2024 6:59am Light-yellowYellowMercy Health Willard Hospital Ctr [id number] [address] [place] [address]3770Urine AppearanceOctober 2024 6:46amOctober 2024 6:59amClearClearMercy Health Willard Hospital [facility]tr [id number] [address] [facility] 91952Ubjkd Specific GravityOctober 2024 6:46amOctober 2024 6:59am1.0231.001-1.030[facility] [id number] [address] [place] 1013770Urine pHOctober 2024 6:46amOctober 2024 6:59am6.0 5.0-9.0[facility] [id number] [address] [place] 1013770Urine Leukocyte EsteraseOctober 2024 6:46amOctober 2024 6:59am1+Above high normalNegativeMercy Health Willard Hospital [facility]tr [id number] [address] [place] 1013770Urine NitriteOctober 2024 6:46amOctober 2024 6:59am NegativeNegativeMercy Health Willard Hospital [facility]tr [id number] [address] [place] 1013770Urine ProteinOctober 2024 6:46amOctober 2024 6:59am Negative mg/dLNegativeMercy Health Willard Hospital [facility]tr [id number] [address] [place] 1013770Urine Glucose (UA)August 18, 2025 6:46amOctober 2024 6:59amNormal mg/dLNormalMercy Health Willard Hospital Ctr [id number] [address] [place], [place] [address]Urine KetonesOctober 2024 6:46amOctober 2024 6:59am NegativeNegativeMercy Health Willard Hospital [facility]tr [id number] [address] [facility] 40537Ixygt UrobilinogenOctober 2024 6:46amOctober 2024 6:59amNormal mg/dLNormalMercy Health Willard Hospital [facility]tr [id number] [address] [place] 1013770Urine BilirubinOctober 2024 6:46amOctober 2024 6:59amNegativeNegativeMercy Health Willard Hospital [facility] [id number] [address] [place] 1013770Urine Occult BloodOctober 2024 6:46amOctober 2024 6:59am1+Above high normalNegativeMercy Health [facility] [id number] [address] [facility] 46824Yskvm RBCOctober 2024 6:46amOctober 2024 7:16am10- 19 [HPF]Above high normal0-4FMercer County Community Hospital [facility] [id number] [address] [facility] 72176Qucbt WBCOctober 2024 6:46amOctober 2024 7:34de5-2 [HPF]Above high normal0-4FMercer County Community Hospital [facility] [id number] [address] [facility] 39372Yheki Squamous Epithelial CellsOctober 2024 6:46amOctober 2024 7:77ix47-65 [HPF]Above high normal0-2FMercer County Community Hospital [facility] [id number] [address] [facility] 64852Jkiqa BacteriaOctober 2024 6:46amOctober 2024 7:16amNone seen [HPF]None SeenMercy Health Willard Hospital Ctr [id number] [address] [facility] 897[address]Tpnws Hyaline CastsOctober 2024 6:46amOctober 2024 7:16amNone [LPF]0-8[facility] [id number] [address] [facility] 90889Xvxda MucusOctober 2024 6:46amOctober 2024 7:16am Rare [LPF][facility] [id number] [address] [facility] 31438Immid HCG, QualitativeOctober 2024 6:46amOctober 2024 6:59amNegativeMercy Health Willard Hospital [facility] [id number] [address] [facility] 09842Arqzxtt LevelOctober 2024 2:45pmOctober 2024 9:40pm75 mg/gV66-290JEG recommended reference rangeRandom Glucose Reference Range is dependent on time and content of last meal. Glucose of more than 200 mg/dL in a nonstressed, ambulatory subject supports the diagnosisof Diabetes Mellitus. [facility] [id number] [address] [facility] 14346Fhgeaph LevelOctober 2024 8:04amOctober 2024 8:34am 96 mg/eY50-002LNG recommended reference rangeRandom Glucose Reference Range is dependent on time and content of last meal. Glucose of more than 200 mg/dL in a nonstressed, ambulatory subject supports the diagnosisof Diabetes Mellitus. [facility] [id number] [address] [facility] 02393Jzpwt Urea NitrogenOctober 2024 2:45pmOctober 2024 9:40pm11 mg/dL05-26[facility] [id number] [address] [facility] 13993Nnjoi Urea NitrogenOctober 2024 8:04amOctober 2024 8:34am18 mg/dL05-26[facility] [id number] [address] [place] [address] 10156BdfcnqvanuFoezgyg 2024 2:45pmOctober 2024 9:40pm0.78 mg/dL0.60-1.20[facility] [id number] [address] [facility] 69955ZwjugjjhdfNlqbsrt 2024 8:04amOctober 2024 8:34am 1.16 mg/dL0.60-1.20[facility] [id number] [address] [facility] 62628Vjsxmvlyg GFR (CKD-EPI)August 08, 2025 2:45pmOctober 2024 9:40pm> 60.0 mL/MinMercy Health Willard Hospital Ctr [id number] [address] [facility] 20483Uazttrqgf GFR (CKD-EPI)August 18, 2025 8:04amOctober 2024 8:34am> 60.0 mL/MinMercy Health Willard Hospital Ctr [id number] [address] [place] [address] 98431Rltdac LevelOctober 2024 2:45pmOctober 2024 9:28oy625 mmol/W646-124GcnbpgkfgMercy Health Willard Hospital [facility]tr [id number] [address] [place] [address] 13144Frlfae LevelOctober 2024 8:04amOctober 2024 8:34am 135 mmol/LBelow low bxchez306-812SopgejzryMercy Health Willard Hospital [facility] [id number] [address] [facility] 04370Hmvlbwjip LevelOctober 2024 2:45pmOctober 2024 9:40pm 5.1 mmol/L3.5-5.1FMercer County Community [facility] [id number] [address] [facility] 08129Tkphajqoi LevelOctober 2024 8:04amOctober 2024 8:34am4.3 mmol/L3.5-5.1FMercer County Community Hospital [facility] [id number] [address] [facility] 52438Rocbpxpx LevelOctober 2024 2:45pmOctober 2024 9:40pm 105 mmol/D63-715BwwjvbpiyMercy Health Willard Hospital [facility] [id number] [address] [facility] 52436Dlneolmu LevelOctober 2024 8:04amOctober 2024 8:31dq846 mmol/G06-249JeqjphbilMercy Health Willard Hospital Ctr [id number] [address] [facility] 700[address]Vhiyfl Dioxide LevelOctober 2024 2:45pmOctober 2024 9:40pm26.3 mmol/L21.0-31.0[facility] [id number] [address] [facility] 85580Nejfuj Dioxide LevelOctober 2024 8:04amOctober 2024 8:34am20.4 mmol/LBelow low qofoeh64.0-31.0[facility] [id number] [address] [facility] 22936Fngmc GapOctober 2024 2:45pmOctober 2024 9:40pm12.8 mEq/L6.0-15.0[facility] [id number] [address] [facility] 30476Ngykj GapOctober 2024 8:04amOctober 2024 8:34am12.9 mEq/L6.0-15.0[facility] [id number] [address] [facility] 30764Kythish LevelOctober 2024 2:45pmOctober 2024 9:40pm 9.7 mg/dL8.6-10.3FMercer County Community [facility] [id number] [address] [facility] 09528Obdcvxw LevelOctober 2024 8:04amOctober 2024 8:34am 9.1 mg/dL8.6-10.3FMercer County Community Hospital [facility] [id number] [address] [facility] 83021Xcoeo ProteinOctober 2024 2:45pmOctober 2024 9:40pm 7.6 g/dL6.4-8.9[facility] [id number] [address] [facility] 44114Qvcwg ProteinOctober 2024 8:04amOctober 2024 8:34am 7.5 g/dL6.4-8.9[facility] [id number] [address] [place] [address] 83882DlqtrmsSavlmqb 2024 2:45pmOctober 2024 9:40pm4.5 g/dL 3.5-5.7FMercer County Community Hospital [facility] [id number] [address] [place] [address] 61052PdavbfvHfqzkfx 2024 8:04amOctober 2024 8:34am4.3 g/dL3.5-5.7FMercer County Community [facility] [id number] [address] [place] [address] 76404OcvjybnhEsuvydb 2024 2:45pmOctober 2024 9:40pm3.1 g/dLMercy Health Willard Hospital [facility] [id number] [address] [place] [address] 04824WvcctwvbCorjmcf 2024 8:04amOctober 2024 8:34am3.2 g/dLMercy Health Willard Hospital [facility] [id number] [address] [place] [address] 73866Ycscmzi/Globulin RatioOctober 2024 2:45pmOctober 2024 9:40pm1.5FMercer County Community [facility] [id number] [address] [facility] 62077Dnysqcf/Globulin RatioOctober 2024 8:04amOctober 2024 8:34am1.3FMercer County Community [facility] [id number] [address] [facility] 14257Nbrmy BilirubinOctober 2024 2:45pmOctober 2024 9:40pm 0.3 mg/dL0.3-1.0[facility] [id number] [address] [facility] 69652Pkwxr BilirubinOctober 2024 8:04amOctober 2024 8:34am0.3 mg/dL0.3-1.0[facility] [id number] [address] [facility] 30178Bmsyoprwn Amino Transf (AST/SGOT)August 08, 2025 2:45pm August 08, 2025 9:40pm15 U/G77-15IonjqaxndMercy Health Willard Hospital Ctr [id number] [address] [facility] 24483Uehjfmyoa Amino Transf (AST/SGOT)August 18, 2025 8:04am August 18, 2025 8:34am15 U/G38-21MvequyroqMercy Health Willard Hospital Ctr [id number] [address] [facility] 05556Ootxpmb Aminotransferase (ALT/SGPT)August 08, 2025 2:45pm August 08, 2025 9:40pm21 U/L7-52[facility] [id number] [address] [place] [address] 55235Vfnnhpq Aminotransferase (ALT/SGPT)August 18, 2025 8:04am August 18, 2025 8:34am14 U/L7-52[facility] [id number] [address] [facility] 40132Ffjngkek PhosphataseOct2024 2:45pmOctober 2024 9:40pm70 U/I91-300HpzuwwmyoMercy Health Willard Hospital [facility] [id number] [address] [facility] 31747Rcomplqe PhosphataseOctober 2024 8:04amOctober 2024 8:34am63 U/M13-079PujyczyuzMercy Health Willard Hospital [facility]tr [id number] [address] [place] [address] 22981Yfimvdxidrw LevelOctober 2024 2:45pmOctober 2024 9:66ti869 mg/iS552-711Ccpe less than 200 mg/dl low riskChol 201-239 mg/dl borderline riskChol 240 mg/dl and greater high riskMercy Health Willard Hospital [facility]tr [id number] [address] [facility] 20671OPS CholesterolOctober 2024 2:45pmOctober 2024 9:40pm 52 mg/sN41-72UYL CHOL ATP-III CLASSIFICATION Cardiovascular RiskHDL > or equal to 60 mg/dL LOWHDL < 40 mg/dL HIGHMercy Health Willard Hospital Ctr [id number] [address] [facility] 38355Vlhajcmbbkowy LevelOctober 2024 2:45pmOctober 2024 9:73wh697 mg/dL0-149TRIG ATP III CLASSIFICATIONTRIG less than 150 mg/dL NormalTRIG 150-199 mg/dL Borderline highTRIG 200-500 mg/dL High TRIG greater than 500 mg/dL Very highStandard traceable to the Center for Disease Conrtrol and Prevention (CDC) test method.[facility] [id number] [address] [facility] 27855RCH Cholesterol, CalculatedOctober 2024 2:45pmOctober 2024 9:40pm76 mg/dL0-100LDL ATP III CLASSIFICATIONLDL less than 100 mg/dL OptimalLDL 100-129 mg/dL Near or above licrlboNJB391-523 mg/dL Borderline highLDL 160-189 mg/dL HighLDL greater than 189 mg/dL Very highMercy Health Willard Hospital [facility]tr [id number] [address] [facility] 18777UVAG CholesterolOctober 2024 2:45pmOct2024 9:40pm29 mg/dLMercy Health Willard Hospital [facility] [id number] [address] [facility] 89055Xcuzhqnjoip/HDL RatioOctober 2024 2:45pmOctober 2024 9:40pm3.0<5.0[facility] [id number] [address] [facility] 85900Uxedrhm Stimulating Hormone 3rd GenOctober 2024 2:45pm August 08, 2025 9:54pm1.56 u[iU]/mL0.45-5.33[facility] [id number] [address] [facility] 22200Vgddiiyk Creatinine Clearance (ChemOctober 2024 2:45pm August 08, 2025 9:40pmN/[facility] [id number] [address] [place], [place] [address]Pharmacy Creatinine Clearance (ChemOctober 2024 8:04am August 18, 2025 8:34am96.95[facility] [id number] [address] [place] [address] [id number] A0iMjlvsse 2024 2:45pmOctober 2024 9:12am 5.7 %Above high normal4.3-5.6Increased risk for diabetes: 5.7 - 6.4diabetes: >6.4glycemic control for adults with diabetes: <7.0[facility] [id number] [address] [place] [address] [id number] Average GlucoseOctober 2024 2:45pmOctober 2024 9:37zf879 mg/dLMer[facility] [id number] [address] [place] [id number] Microbiology Results Procedure Source Result Collection Date/Time Result Date/Time Result Comment Performing Site Urine Culture Urine, Clean-Voided Midstream 2 Days August 18, 2025 7:46am August 20, 2025 8:54am [facility] [id number] [address] [place], [place] [id number] Diagnostic Imaging Reports Author Massimo Phan White HospitalAuthoredOctober 2024 9:16amReportDictated Date/TimeDictated ByStatusRadiology ReportOctober 2024 9:16amJomilvia Phan Jr DOcompleteCity [facility] [address] [address] [address] Scan Report Signed Patient: Nicole Bender MR#: [id number] : 1995 Acct:[id number] Age/Sex: 29 / F ADM Date: 5 Loc: ER Room: Type: [facility] ER Attending Dr: Copies to: Lupillo Lobo DO~ Ordering Provider: Lupillo Lobo DO Date of Service: 08/18/25 CT/CT abdomen pelvis wo con: L flank pain CT ABDOMEN AND PELVIS WITHOUT INTRAVENOUS CONTRAST: CLINICAL HISTORY: Left flank pain for 3 days COMPARISON: CT abdomen and pelvis 04/18/2024 TECHNIQUE: Spiral images were obtained through the abdomen and pelvis without intravenous contrast. This CT exam was performed using one or more following dose reduction techniques: Automated exposure control, adjustment of the mA and/or kV according to patient size, or use of iterative reconstruction technique. FINDINGS: Lung Bases: [No acute findings.] Organs:Suboptimal evaluation due to lack of IV contrast. Liver gallbladder spleen pancreas and adrenal glands appear unremarkable. Right nephrolithiasis largest stone measuring 4 mm. Punctate stones are seen involving the left kidney. There is an obstructing calculus involving the left UVJ measuring 7 mm. Aorta appears normal in caliber.[ GI: Stomach is grossly unremarkable. Small bowel appears nondilated. Appendix is normal. No acute colonic abnormality.[ Pelvis:[Urinary bladder is grossly unremarkable. Uterus is grossly unremarkable.] Peritoneum/Retroperitoneum:No free air or free fluid or lymphadenopathy.[ Abd wall/Bones:Abdominal wall demonstrates no acute findings. Osseous str uctures demonstrate degenerative change.[ CT/CT abdomen pelvis wo con IMPRESSION: Bilateral nephrolithiasis with obstructing calculus left UVJ measuring 7 mm. Impression dictated by: Massimo Phan Jr., D.O. 08/18/2025 9:20 AM Dictation Location: [place] [address] Transcribed By: [facility] 08/18/25919 Dictated By: Massimo Phan Jr, DO 08/18/2516 Signed By: <Electronically signed by Massimo Phan Jr, DO in OV> 08/18/25 09 Vital Signs Vital Reading Result Reference Range Collection Date/Time Height 65.5 [in_i] August 18, 2025 6:80azBnddfc189.00 kgOct2024 6:41amBody Ihbrlmjgpml12.5 [degF]97.6-99.0August 18, 2025 6:41amHeart Rate79 /drg72-034 August 18, 2025 10:11amRespiratory rate18 /awa33-82WaylrbtAugust 18, 2025 10:11am Oxygen saturation by Pulse wvsswsav52 %95-100August 18, 2025 10:11amBP Roqxcmrx147 mm[Hg]100-140Oct2024 10:11amBP Wmyslixnr22 mm[Hg]60-100 August 18, 2025 10:06qcWrwlkg46.5 [in_i]September 07, 2025 2:31pmHeart Rate91 /oio27-840WopyllnkSeptember 07, 2025 2:31pmOxygen saturation by Pulse lpzkhpry285 % 95-100September 07, 2025 2:31pmBP Kdxqohkj340 mm[Hg]100-140September 07, 2025 2:31pmBP Sdjpafnxw34 mm[Hg]60-100September 07, 2025 2:31pm Advance Directives Advance Directive Response Recorded Date/ Time Advance Directives No July 12:18pm Insurance Providers Guarantor Nicole Bender Address [address] [facility] [address]Lfwxrcu Info.Home Phone: Coverage Status Update:2025 Payer Group Member ID Coverage Type Subscriber Relationship to Subscriber Effective Date Expiration Date [employer] Id: [id number] L Gonzales Id: [id number] [address] [facility] [address] Home Phone: Email: declined 21SelCAP/HFA/FAP Active [id number] L Gonzales Id: [id number] [address] [facility] [address] Home Phone: Email: declined 21Self Encounters Encounter Location(s) Arrival/Admit Date Discharge/Departure Date Discharge/Departure Disposition Provider(s) Departed [facility] August 08, 2025 3:45pm August 08, 2025 3:46pm Discharged to home care or self care (routine discharge) AGA Wise Departed Emergency -Emergency Room August 18, 2025 7:37am August 18, 2025 11:12am Discharged to home care or self care (routine discharge) Departed [facility], 2025 2:17pmSeptember 07, 2025 3:47pmDischarged to home care or self care (routine discharge)Rupert Adams MD Plan of Treatment Future Tests Future scheduled test information is unavailable Pending Tests Pending diagnostic test information is unavailable Future Visits Future appointment information is unavailable Future Procedures Procedure Name Ordered Date Scheduled Date Complete Blood Count Auto Diff September 07 3:21pm Iron and TIBC ProfileSeptember 07, 2025 3:21pmFerritinNov2024 3:21pm [employer] ADMINISTRATOR polysom procedureNov2024 3:23pmFebruary 2025 8:00pm Future Medications Future medication information is unavailable Patient Instructions Instruction Admit Date Kidney stones in adults - ED discharge i nstructions August 18, 2025 7:37am
--- OUTSIDE RECORDS SUMMARY | 2025-09-08 09:11 | XMS_ITS | Clinical Summary ---
Author Organization [facility] Address [address] [place] [address] Care Team Providers Care Industrial Technology Teacher Name Role Phone Liyah Lozada CASH REGISTER BALANCER Primary Care Provider [phone] Allergies No known active allergies Medications MedicationSigDispense QuantityRefillsLast FilledStart DateEnd DateStatus ergocalciferol, vitamin D2, (DRISDOL) 50,000 unit capsule Take 1 capsule by mouth once each week. 4 capsule Active Encounters DateTypeDepartmentCare FdoxIluuvcottmw02/17/2025Telephone Urology [address] [place] [address] José Luis Lentz MD Patient Questionfrom Last 3 Months Family History Medical HistoryRelationCommentsFibromyalgiaMotherRelationStatusCommentsMother Social History Tobacco UseTypesPacks/DayYears UsedDateSmoking Tobacco: Every DayCigarettes Smokeless Tobacco: Never Comments:4-5 a day Alcohol UseStandard Drinks/WeekCommentsNo0 (1 standard drink = 0.6 oz pure alcohol)PHQ-2AnswerDate RecordedPHQ-2 zubvb179Area Deprivation Index AnswerDate RecordedNational Score (1-100), lower number is lower riskNot on file 10/11/2020State Score (1-10), lower number is lower riskNot on file10/11/2020 Data from: https://www.neighborhoodatlas.medicine.[facility].edu/. Last address used for calculationNot on file10/11/2020CommentsUnknownSex and Gender InformationValueDate RecordedSex Assigned at BirthNot on fileLegal SexFemale 02/04/2017 4:30 PM EDTGender IdentityNot on fileSexual OrientationNot on file Last Filed Vital Signs Vital SignReadingTime TakenCommentsBlood Wbvmdeyp926/8311/25/2018 2:01 PM EST Rtgux273611/25/2018 2:01 PM RCZPwhtdwemeon94.8 ??C (98.2 ??F)11/25/2018 2:01 PM ESTRespiratory Rate--Oxygen Saturation--Inhaled Oxygen Concentration--Weight 110.9 kg (244 lb 8 oz)11/25/2018 2:01 PM AHOGhbwae372.2 cm (5' 5.83 )11/25/2018 2:01 PM ESTBody Mass Index39.67011/25/2018 2:01 PM EST Plan of Treatment Health MaintenanceDue DateLast DoneCommentsAnxiety Mmekzqmyy13/16/2011Depression Fzokfhgjt10/16/2011HIV Qvhszxiup51/16/2011Hepatitis C Gkaccerys01/16/2011 DTaP,Tdap,Td Vaccine (1 - Tdap)2012Hepatitis B Vaccine (1 of 3 - 19+ 3- dose series)2012Cervical Cancer Zdliwinuf23/16/2014HPV Vaccine (1 - 3-dose SCDM series)2020Covid-19 Vaccine ( - season)2025Influenza Vaccine (#1)2025 Procedures Procedure NamePriorityDate/TimeAssociated DiagnosisCommentsCT OUTSIDE CD DICOM UKZEWL7908/18/2025 from Last 3 Months Results * CT-CT abdomen pelvis wo con IMPORT (08/18/2025)Anatomical RegionLaterality ModalityOtherSpecimen (Source)Anatomical Location / LateralityCollection Method / VolumeCollection TimeReceived Time08/18/2025 Narrative 08/20/2025 5:31 AM EDT Images were obtained outside of [facility] Procedure Note Provider, [facility] [place] - 08/20/2025 Images were obtained outside of [facility] Authorizing ProviderResult TypeResult StatusCcf ProviderRADIOLOGYFinal Result from Last 3 Months Insurance * Guarantor: Nicole BenderAccount TypeRelation to PatientDate of BirthPhone Billing AddressPersonal/DbkoheMusx1995 [facility] [place] [address] Care Teams Team MemberRelationshipSpecialtyStart DateEnd Date Liyah Lozada NP [address] [place] [address] PCP - GeneralFamily Medicine11/26/18
--- OUTSIDE RECORDS SUMMARY | 2025-09-08 09:12 | XMS_ITS | Clinical Summary ---
Author Organization [facility] Address [address] [place] [address] Care Team Providers Care Charter Bus Driver Name Role Phone Unavailable Primary Care Provider Unavailabl e Social History Tobacco UseTypesPacks/DayYears UsedDateSmoking Tobacco: Never Assessed CommentsUnknownSex and Gender InformationValueDate RecordedSex Assigned at Not on fileLegal FwpKxeeer65/04/2017 1:41 PM EDTGender IdentityNot on fileSexual OrientationNot on file Plan of Treatment Not on file
--- OUTSIDE RECORDS SUMMARY | 2025-09-08 09:12 | XMS_ITS | Patient Health Record ---
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 Massimo Montez Unavailable [phone] Guerita Conn Unavailable [phone] Cinthia Montes Unavailable [phone] Sebastian Grigsby Unavailable [phone] SetswanaEnedina Unavailable [phone] Allergies Allergen (clinical drug ingredient) Drug/Non Drug Allergy documented on EMR Reaction Allergy Type Onset Date Status VicodinrashDrug AllergyActivehydrocodoneHydrocodoneanaphylaxisDrug AllergyActive Results Component Value Reference Range Flag Notes Urinalysis automated (Not ye t reviewed by provider) Interpretation: Performing Lab: Notes/Report: Urine-Color yellow AppearanceclearSpecific Gravity1.015pH6.0GlucoseNEGProteinNEGOccult BloodPOS BilirubinNEGUrobilinogen,Semi-QnNEGNitrite, UrineNEGKetonesNEGWBC EsteraseNEG Urinalysis Gross ScjnOVAQ3Q with Estimated Average Glu Reviewed date:08/09/2025 10:33:28 AM Interpretation: Performing Lab:, [facility], [address] Notes/Report: complication, without long- Reason for Exam Type 2 diabetes mellitus withoutHemoglobin A1C5.74.3-5.6 %H Increased risk for diabetes: 5.7 - 6.4 diabetes: >6.4 glycemic control for adults with diabetes: <7.0 Estimated Average Frpebta638Ppaxxrhdviunv Metabolic Panel Reviewed date:08/09/2025 09:39:59 AM Interpretation: Performing Lab:, [facility], [address] Notes/Report: complication, without long- Reason for Exam Type 2 diabetes mellitus without Reason for Exam Boil, nucluuyNuinxwh0917-414 mg/dLN Random Glucose Reference Range is dependent on time and content of last meal. Glucose of more than 200 mg/dL in a nonstressed, ambulatory subject supports the diagnosis of Diabetes Mellitus. ADA recommended reference range Blood Urea Gzurpelg381-57 mg/dLNCreatinine0.780.60-1.20 mg/oDJBjwtrd156051-438 mmol/LNPotassium5.13.5-5.1 mmol/TYYxyidsre27126-631 mmol/LNCarbon Ikdpwin28.3 21.0-31.0 mmol/LNCalcium9.78.6-10.3 mg/dLNTotal Protein7.66.4-8.9 g/dLNAlbumin Level4.53.5-5.7 g/dLNGlobulin3.1Albumin/Globulin Ratio1.5Bilirubin,Total0.30.3- 1.0 mg/dLNAspartate Amino Rqswrdkrsnp7267-77 U/LNAlanine Gyuqnkumldawouee786-39 U/LNAlkaline Stntiitacmp5131-158 U/LNEstimated GFR>60.0Anion Gap12.86.0-15.0N Lipid Panel Reviewed date:08/09/2025 09:39:53 AM Interpretation: Performing Lab: Notes/Report: Reason for Exam Boil, buttock Reason for Exam Type 2 diabetes mellitus without complication, without axwh-Twkxybxhyku778889-523 mg/dLN Chol less than 200 mg/dl low risk Chol 201-239 mg/dl borderline risk Chol 240 mg/dl and greater high risk HDL Guswsusrnmp4360-35 mg/dLN HDL CHOL ATP-III CLASSIFICATION Cardiovascular Risk HDL > or equal to 60 mg/dL LOW HDL < 40 mg/dL HIGH Triglyceride w/Aamyfa6048-887 mg/dLN TRIG ATP III CLASSIFICATION TRIG less than 150 mg/dL Normal TRIG 150-199 mg/dL Borderline high TRIG 200-500 mg/dL High TRIG greater than 500 mg/dL Very high Standard traceable to the Center for Disease Conrtrol and Prevention (CDC) test method. LDL Cholesterol,Hcerqlwnoi627-235 mg/dLN LDL ATP III CLASSIFICATION LDL less than 100 mg/dL Optimal LDL 100-129 mg/dL Near or above optimal LDL 130-159 mg/dL Borderline high LDL 160-189 mg/dL High LDL greater than 189 mg/dL Very high VLDL BQWXJYXUMZZ41Aisg/HDL Ratio3.0<5.0Thyroid Stim Hormone w/Rflx Reviewed date:08/09/2025 09:39:47 AM Interpretation: Performing Lab: Notes/Report: Reason for Exam Boil, buttock Reason for Exam Type 2 diabetes mellitus without complication, without long-Thyroid Stim Hormone w/Rflx1.560.45-5.33 u[iU]/mLN Complete Blood Count Auto Diff Reviewed date:08/09/2025 09:44:06 AM Interpretation: Performing Lab:, [facility], [address] [place] Notes/Report: Reason for Exam Boil, buttockWhite Blood Count10.03.8-11.6 [CFU]/mLNUncorrected WBC10.03.8-11.6 10*3/uLNRed Blood Count4.773.60-5.00 10*6/eMAUjwcvrqvok90.311.8- 15.4 g/oXGVtiuehjxds96.834.0-46.4 %NMean Corpuscular Dsfpgc30.480-100 fLNMean Corpuscular Kpwudxkxht47.824.7-34.3 pgNMean Corpuscular HGB Conc33.332.0-35.0 g/dLNRed Cell Distribution Width13.911.9-15.3 %NPlatelet Knrws177875-578 10*3/uL NMean Platelet Volume8.76.3-10.7 fLNNeutrophils % (Auto)47.8. %Lymphocytes % (Auto)42.8. %Monocytes % (Auto)6.3. %Eosinophils % (Auto)2.4. %Basophils % (Auto)0.7. %NRBC%0.20-0.5 /100{WBC}NNeutrophils # (Auto)4.81.8-7.7 10*3/uLN Lymphocytes # (Auto)4.31.00-4.8 10*3/uLNMonocytes # (Auto)0.60.0-0.8 10*3/uLN Eosinophils # (Auto)0.20.0-0.45 10*3/uLNBasophils # (Auto)0.10.0-0.2 10*3/uLN URINE - Urinary Tract Infection + High Risk Sexual Behavior (HTRx) Reviewed date:08/11/2025 12:47:50 PM Interpretation: Performing Lab: Notes/Report:tet B, tet M25.29731.000 - 27.500 ppmtet B, tet DBnckvjgs90.000 - 27.500 ppmTrichomonas qhztwrfoe637.000 - 31.995 ppmTrichomonas vaginalisNot Msbadyor79.000 - 31.995 ppmStreptococcus pyogenes (Group A strep)019.961 - 24.689 ppmStreptococcus pyogenes (Group A strep)Not Gixujdfq44.961 - 24.689 ppm Streptococcus agalactiae (Group B Strep)026.000 - 32.435 ppmStreptococcus agalactiae (Group B Strep)Not Rzyjhwtr21.000 - 32.435 ppmStaphylococcus aureus0 26.000 - 31.595 ppmStaphylococcus aureusNot Mcaxichr86.000 - 31.595 ppmSerratia tcpzbhforw247.000 - 31.581 ppmSerratia marcescensNot Coklopdu11.000 - 31.581 ppm Pseudomonas izygbjbvqk018.000 - 31.801 ppmPseudomonas aeruginosaNot Detected 23.000 - 31.801 ppmProteus mirabilis, jlqxlica630.000 - 28.500 ppmProteus mirabilis, vulgarisNot Uzlwjrou00.000 - 28.500 ppmNeisseria juxlwnacokl424.000 - 32.587 ppmNeisseria gonorrhoeaeNot Fuasyncu53.000 - 32.587 ppmKlebsiella pneumoniae, fauigjp489.000 - 31.865 ppmKlebsiella pneumoniae, oxytocaNot Twfirdcz51.000 - 31.865 ppmEscherichia hdix764.000 - 28.500 ppmEscherichia coli Not Fmdrvrzi06.000 - 28.500 ppmEnterococcus faecalis, drfvxay319.000 - 33.043 ppmEnterococcus faecalis, faeciumNot Izshxiby05.000 - 33.043 ppmEnterobacter aerogenes, .000 - 32.290 ppmEnterobacter aerogenes, cloacaeNot Fotrsiiw44.000 - 32.290 ppmCitrobacter .000 - 32.015 ppmCitrobacter freundiiNot Kqopjxms49.000 - 32.015 ppmChlamydia ahbruvehezs492.000 - 31.586 ppm Chlamydia trachomatisNot Cypcvfyt04.000 - 31.586 ppmAcinetobacter baumannii0 19.961 - 24.689 ppmAcinetobacter baumanniiNot Jnqetvvr67.961 - 24.689 ppm Morganella poedmsze160.961 - 24.689 ppmMorganella morganiiNot Lrzywfqk74.961 - 24.689 ppmCandida albicans, parapsilosis, euoycsjiyk226.000 - 30.347 ppmCandida albicans, parapsilosis, tropicalisNot Levefcio19.000 - 30.347 ppmCandida glabrata (Nakaseomyces glabratus)023.000 - 31.618 ppmCandida glabrata (Nakaseomyces glabratus)Not Jibjsujz59.000 - 31.618 ppmCandida krusei (Pichia kudriavzevii)023.000 - 30.873 ppmCandida krusei (Pichia kudriavzevii)Not Mphwvntl02.000 - 30.873 ppmMycoplasma slbgvxgveg124.961 - 24.689 ppmMycoplasma genitaliumNot Ztywpppr72.961 - 24.689 ppmMycoplasma clgvxky010.961 - 24.689 ppm Mycoplasma hominisNot Dlowbzlp67.961 - 24.689 ppmStaphylococcus saprophyticus0 19.961 - 24.689 ppmStaphylococcus saprophyticusNot Ldqlpiph60.961 - 24.689 ppm Staphylococcus epidermidis, haemolyticus, srugibksjfe442.961 - 24.689 ppm Staphylococcus epidermidis, haemolyticus, lugdunensisNot Rdhwdhos35.961 - 24.689 ppmUreaplasma vkqcebgewup142.961 - 24.689 ppmUreaplasma urealyticumNot Detected 19.961 - 24.689 ppmUreaplasma .0919.961 - 24.689 ppmUreaplasma parvum Mfbviszi86.961 - 24.689 ppmIron and TIBC Profile Reviewed date:03/20/2025 08:14:12 PM Interpretation: Performing Lab: Notes/Report: Reason for Exam Iron deficiency Reason for Exam Type 2 diabetes mellitus without complication, without ukjg-Dpoe2829-655 ug/dLNTotal Iron Binding Odxwscdz144283- 450 ug/dLN% Iron Kwzvozzizl04.320-50 %NIpzkpxtgxjj479685-648 mg/dLNComplete Blood Count Auto Diff Reviewed date:03/20/2025 08:12:30 PM Interpretation: Performing Lab:, [facility], [address] Notes/Report: Reason for Exam Type 2 diabetes mellitus without complication, without long-White Blood Count10.03.8-11.6 10*3/uLNUncorrected WBC 10.03.8-11.6 10*3/uLNRed Blood Count4.603.60-5.00 10*6/wCSJfiltziadx58.611.8- 15.4 g/hMTDcihyfnujh20.934.0-46.4 %NMean Corpuscular Mconus24.380-100 fLNMean Corpuscular Twrptuguoq55.524.7-34.3 pgNMean Corpuscular HGB Conc33.432.0-35.0 g/dLNRed Cell Distribution Width14.211.9-15.3 %NPlatelet Drccl071164-806 10*3/uL NMean Platelet Volume8.06.3-10.7 fLNNeutrophils % (Auto)51.7. %Lymphocytes % (Auto)42.7. %Monocytes % (Auto)4.3. %Eosinophils % (Auto)1.1. %Basophils % (Auto)0.2. %NRBC%0.10-0.5 /100{WBC}NNeutrophils # (Auto)5.21.8-7.7 10*3/uLN Lymphocytes # (Auto)4.31.00-4.8 10*3/uLNMonocytes # (Auto)0.40.0-0.8 10*3/uLN Eosinophils # (Auto)0.10.0-0.45 10*3/uLNBasophils # (Auto)0.00.0-0.2 10*3/uLN Thyroid Stim Hormone w/Rflx Reviewed date:03/20/2025 08:12:49 PM Interpretation: Performing Lab: Notes/Report: Reason for Exam Iron deficiency Reason for Exam Type 2 diabetes mellitus without complication, without long-Thyroid Stim Hormone w/Rflx3.160.45-5.33 u[iU]/mLN Comprehensive Metabolic Panel Reviewed date:03/20/2025 08:12:40 PM Interpretation: Performing Lab:, [facility], [address] [place] Notes/Report: Reason for Exam Iron deficiency Reason for Exam Type 2 diabetes mellitus without complication, without nhmj-Wvrtxej6411-563 mg/dLN Random Glucose Reference Range is dependent on time and content of last meal. Glucose of more than 200 mg/dL in a nonstressed, ambulatory subject supports the diagnosis of Diabetes Mellitus. ADA recommended reference range Blood Urea Znfuzqql803-19 mg/dLNCreatinine0.800.60-1.20 mg/hUNNxubho870529-068 mmol/LNPotassium4.33.5-5.1 mmol/MOQlauravf01527-001 mmol/LNCarbon Zqiaidk97.4 21.0-31.0 mmol/LNCalcium8.78.6-10.3 mg/dLNTotal Protein6.96.4-8.9 g/dLNAlbumin Level4.03.5-5.7 g/dLNGlobulin2.9Albumin/Globulin Ratio1.4Bilirubin,Total0.40.3- 1.0 mg/dLNAspartate Amino Mgttybatqem4027-02 U/LNAlanine Qiwaaxqpyzuywxwt828-69 U/LNAlkaline Utgrcmycshz0996-236 U/LNEstimated GFR>60.0Anion Gap10.96.0-15.0 meq/LNHemoglobin A1c Reviewed date:03/14/2025 04:52:10 PM Interpretation:5.5 Performing Lab: Notes/Report: 5.5Hemoglobin A1c5.55 - 7.9 % Reason For Referral Reason FIM program, diabeti c diet education TE 03/15 Diagnosis 1 Obesities, morbid (E 66.01) Referral Organization [facility] Referring Provider First Name Liyah Referring Provider Last Name Kierra Referring Provider Speciality Nurse Mauro valencia Referred Provider Specialty Circus Hand Referral Priority Routine Medications Medication SIG (Take, Route, Frequency, Duration) Notes Start Date End Date Status hydrOXYzine HCl 25 MG Tablet 1 tablet at bedtime as needed Orally Once a day; Duration: 90 days ActiveFerrous Sulfate 325 (65 Fe) MG Tablet Delayed Release1 tablet Orally daily; Duration: 30 days5ActivemetFORMIN HCl 500 MG TabletTAKE 1 TABLET Orally twice a day; Duration: 90 daysActiveVraylar 1.5 MG Capsule1 capsule Orally Once a day; Duration: 30 daysActiveACCRUFeR 30 MG Capsule1 capsule 1 hour before or 2 hours after meals Orally Twice a day; Duration: 30 day(s)02/17/2024 ActiveNeedle (Disp) 31G X 5/16 Miscellaneousinject 0.6 daily; Duration: 30 days 09/27/2024ctiveSertraline HCl 50 MG TabletTAKE 1 AND 1/2 TABLETS ORALLY ONCE DAILY 90 DAYS Orally Once a day; Duration: 30 daysActiveNeedle (Disp) 31G X 5/16 Miscellaneousas directed SQ daily; Duration: 30 days03/16/2023ctive Immunizations Vaccine Route Administration Date Status Comme nts Influenza 3+ PRIVATE IM Intramuscular 08/27/2021 Administered pt state [facility] fl [facility] [place] TETANUS IM Intramuscular 07/17/2022 Administered Social History Tobacco Use: Social History Observation Description Date Details (start date - stop date) Never Smoker NA - NA Sex Assigned At : Social History Observation Description Sex Assigned At Female Social History GeneralSocial InfoQuestionAnswerNotesTransition of Care:ER/UC/hospital since last office visit?NoSpecialist seen since last office visit?NoDepression Screening (PHQ-9):Little interest or pleasure in doing thingsNot at allFeeling down, depressed, or hopelessNot at allTrouble falling or staying asleep, or sleeping too muchNot at allFeeling tired or having little energyNot at allPoor appetite or overeatingNot at allFeeling bad about yourself-or that you are a failure or have let yourself or your family downNot at allTrouble concentrating on things, such as reading the newspaper or watching televisionNot at allMoving or speaking so slowly that other people could have noticed. Or the opposite being so fidgetyor restless that you have been moving around a lot more than usualNot at allThoughts that you would be better off , or of hurting yourself in some wayNot at allTotal Yfvzg0Nhtvelxdv abuse/mental health issues of patient/familyPatient -Caffeine Use,AlcoholAbility to understand healthcare/treatmentPatient:GoodTobacco Screen:Are you a:former smokerSexual Hx: Had sex in the last 12 months (vaginal, oral, or anal)?Yes? withMen onlyHave you ever had an STD?Yes? Other?YesLMP:not regularSocial/Support Concerns:Patient:No Alcohol Screening:Did you have a drink containing alcohol in the past year?Yes? How often did you have a drink containing alcohol in the past year?Two to four times a month (2 points)? How many drinks did you have on a typical day when you were drinking in the past year?1 or 2 (0 points)? How often did you have six or more drinks on one occasion in the past year?Less than monthly (1 point)Points3 InterpretationPositiveBehaviors affecting healthPoor/Risky Behaviors:Second Hand Smoke-Drug/Alcohol:Social InfoQuestionAnswerNotesAUDIT-C (Standard)Did you have a drink containing alcohol in the past year?Yes? How often did you have a drink containing alcohol in the past year?Monthly or less (1 point)? How many drinks did you have on a typical day when you were drinking in the past year?1 or 2 drinks (0 point)? How often did you have six or more drinks on one occasion in the past year?Less than monthly (1 point)Qvadry6EfhhkidlqbhcmyDlwnyqgjUwouyik Use:Social InfoQuestionAnswerNotesTobacco Control (Standard)Tobacco use: Nonsmoker Problems Problem Type SNOMED Code ICD Code Onset Dates Problem Status W/U Status Risk Notes Problem Hidradenitis suppurativa (53783228) Hidra denitis suppurativa (L73.2) ActiveconfirmedProblemVitamin D deficiency (89509641)Vitamin D deficiency (E55.9)ActiveconfirmedProblemAnxiety (38263935)Anxiety (F41.9)Activeconfirmed ProblemGoiter (3394937)Enlarged thyroid (E04.9)ActiveconfirmedProblemType II diabetes mellitus without complication (444749371)Type 2 diabetes mellitus without complication, without long-term current use of insulin (E11.9)Active confirmedProblemMorbid obesity (325394104)Obesities, morbid (E66.01)Active confirmedProblemMixed anxiety and depressive disorder (894074904)Mixed anxiety and depressive disorder (F41.8)Activeconfirmed Vital Signs Heart Rate 75 /min 08/08/2025 Fsxqmlszftt54.0 degrees Nxnccfqznt21/07/2025Respiratory Rate18 /min08/08/2025 Blood pressure wijskofhn97 mm Hg08/08/20255666Wrxqtqcl56 %08/08/20250516Kwfewy0lf 3in in 08/08/2025lood pressure pfkakjth723 mm Hg08/08/20257525Wmhwhc975 lbs1MI 50.83 kg/m208/08/2025 Encounters Encounter Location Date Provider Diagnosis [facility] [address] [place] [address] 10/31/2024 Cinthia Montes Dental caries on pit and fissure surface penetrating into dentin K02.52 [facility] [address] [place] [address] 03/14/2025 Liyah Lozada Iron deficiency E61. 1 ; Type 2 diabetes mellitus without complication, without long-term current use of insulin E11.9 ; Mixed anxiety and depressive disorder F41.8 ; Boil, buttock L02.32 ; Gasping for breath R06.89 and Obesities, morbid E66.01 [facility] [address] [place] [address] 05/02/2025 Sebastian Grigsby Type 2 diabetes mellitus without complication, without long-term current use of insulin E11.9 ; Obesities, morbid E66.01 and Vitamin D deficiency E55.9 [facility] [address] [place] [address] 06/08/2025 Sebastian Grigsby Type 2 diabetes mellitus without complication, without long-term current use of insulin E11.9 ; Obesities, morbid E66.01 and Vitamin D deficiency E55.9 [facility] [address] [place] [address] 08/08/2025 [facility] Urinary frequency R35.0 ; Boil, buttock L02.32 ; Hidradenitis suppurativa L73.2 ; Vitamin D deficiency E55.9 and Type 2 diabetes mellitus without complication, without long-term current use of insulin E11.9 [facility] [address] [place] [address] 08/15/2025 Enedina Setswana Dental caries on pit and fissure surface penetrating into dentin K02.52 [facility] [address] [place] [address] 09/20/2024 [facility] [place] [address]/26/2024 [facility] [place] [address] 03/15/2025[facility] [address] [place] [address]/Laura SpasicIron deficiency E61.1[facility] [address] [place] [address]/08/2025Laura SpasicIron deficiency E61.1[facility] [address] [place] [address] 05/23/2025[facility] [address] [place] [address]/06/2025[facility] [address] [place] [address]/08/2025Laura SpasicAcute UTI N39.0[facility] [place] [address]/Laura SpasicType 2 diabetes mellitus without complication, without long-term current use of insulin E11.9[facility] [place] [address] 11/26/2024[facility] [address] [place] [address]/[facility] [place] [address]/[facility] Assessments Encounter Date Diagnosis (ICD Code) Assessment Notes Treatment Notes Treatment Clinical Notes Section Notes 09/20/2024 Type 2 diabetes chyna itus without complication, without long-term current use of insulin (ICD-10 - E11.9) 10/31/2024ental caries on pit and fissure surface penetrating into dentin (ICD- 10 - K02.52)03/14/2025Iron deficiency (ICD-10 - E61.1)continue iron supplement, increase oral fluids and advised to take stool softener as iron can cause constipation. Also can change color of stool. Will repeat cbc and iron studies to monitor effectiveness. Discussed foods rich an iron.03/14/2025Type 2 diabetes mellitus without complication, without long-term current use of insulin (ICD-10 - E11.9)AIC is below goal of 7.0. Continue same medications as prescribed. Labs ordered to review renal function. Urine for microalbumin within the year. Continue home monitoring of blood sugars; if <70 or >450 go to the ER. Pt enc to have annual eye exams as well as enc to not cut toe nails, routinefoot care and checks with podiatry, if you develop any sores/concern RTO. F/U 3 months 03/20/2025Iron deficiency (ICD-10 - E61.1)04/11/2025Iron deficiency (ICD-10 - E61.1)06/08/2025Type 2 diabetes mellitus without complication, without long-term [...] but other days no appetite Grocery Shopping: [employer] Household: Self, and 2 children Cooking: Self [...] once a week for 30 minutes Estimated [place] x 1.2 AF: 1,500 kcals/day for 2lbs/week [...] access to nutrition education as evidenced by 24-hr recall showing intake beyond needs, reported physical [...] 15minutes spent with patient. Seen by Sebastian Grigsby MPH, RD, LD. 06/08/2025Obesities, morbid (ICD-10 - E66.01) Pt presents for [...] once a week for 30 minutes Estimated [place] x 1.2 AF: 1,500 kcals/day for 2lbs/week [...] access to nutrition education as evidenced by 24-hr recall showing intake beyond needs, reported physical [...] 15minutes spent with patient. Seen by Sebastian Grigsby MPH, RD, LD. 05/02/2025Type 2 diabetes mellitus without complication, without long-term current use of insulin (ICD-10 - E11.9) Pt presents for initial RD visit. Referred by Liyah Lozada NP Nutrition related Dx: E66.01 Obesity, E11.9 DM2, E55.9 Vit D deficiency Motivators: Accountability, healthy eating, weight loss, staying active for children Weight history: Steady/same over the last year Food Allergies/Intolerances: N/A Dental: N/A Appetite: Varies-one day will be super hungry but other days no appetite Grocery Shopping: [employer] Household: Self, and 2 children Cooking: Self [...] once a week for 30 minutes Estimated [place] x 1.2 AF: 1,500 kcals/day for 2lbs/week weight loss - - - - - OBJECTIVE: Initial weight/BMI: 301.6 lbs / 53.42kg/m2 (03/14/25) - - - - - Nutrition Rx: Plate method; non-starchy vegetables; lean, low sodium protein sources; complex carbohydrates; heart healthy fats Protein/day: 70-85g/day (0.8-1.0 g/kg adj body weight) Nutrition Dx: 1. Obesity related to limited physical activity, inconsistent energy intake/excessive carbohydrate intake, food insecurity causing patient to consume low quality foods, and limited access to nutrition education as evidenced by 24-hr recall showing intake beyond needs, reported physical activity below recommendations, positive screening for food insecurity, and BMI >30 kg/m2. 2. Inadequate nutrient intake (fiber and protein) related to nutrition knowledge deficit as evidenced by 24 hr recall showing intake below recommended amount. - - - - - INTERVENTION: Summary of Visit/Education Provided: a) Overview of FIM program (expectations, box pick ups, etc.) b) Plate method c) Importance of fiber/protein for blood sugar regulation and satiety d) Importance of not skipping meals e) Different types of carbohydrates and how they impact blood sugar Worked with patient to set the following goals: 1) Switch to whole grain/whole wheat products instead of white 2) Eat within 2 hours of waking, small frequent meals/snacks every 3- hours - - - - - Other Relevant Information Discussed @ Visit: - Materials Provided: plate method overview handout, produce box, recipes for box, meal timing handout, carbohydrate guide handout, 16 snacks that include protein handout, protein snacks handout, protein/fiber snacks handout, fiber and weight loss handout - - - - - Monitoring/Evaluation -Weight, total intake, nutrition related lab values - - - - - RD name and contact information provided. Patient with no further nutrition- related questions at this time. Patient to follow-up with RD in 6-8 weeks.. Patient seen from 1:38 to 2:02 PM for a total of 24 minutes spent with patient. Seen by Sebastian Grigsby MPH, RD, LD. 05/02/2025Obesities, morbid (ICD-10 - E66.01) Pt presents for initial RD visit. Referred by Liyah Lozada NP Nutrition related Dx: E66.01 Obesity, E11.9 DM2, [...] once a week for 30 minutes Estimated [place] x 1.2 AF: 1,500 kcals/day for 2lbs/week weight loss - - - - - OBJECTIVE: Initial weight/BMI: 301.6 lbs / 53.42kg/m2 (03/14/25) - - - - - Nutrition Rx: Plate method; non-starchy vegetables; lean, low sodium protein sources; complex carbohydrates; heart healthy fats Protein/day: 70-85g/day (0.8-1.0 g/kg adj body weight) Nutrition Dx: 1. Obesity related to limited physical activity, inconsistent energy intake/excessive carbohydrate intake, food insecurity causing patient to consume low quality foods, and limited access to nutrition education as evidenced by 24-hr recall showing intake beyond needs, reported physical activity below recommendations, positive screening for food insecurity, and BMI >30 kg/m2. 2. Inadequate nutrient intake (fiber and protein) related to nutrition knowledge deficit as evidenced by 24 hr recall showing intake below recommended amount. - - - - - INTERVENTION: Summary of Visit/Education Provided: a) Overview of FIM program (expectations, box pick ups, etc.) b) Plate method c) Importance of fiber/protein for blood sugar regulation and satiety d) Importance of not skipping meals e) Different types of carbohydrates and how they impact blood sugar Worked with patient to set the following goals: 1) Switch to whole grain/whole wheat products instead of white 2) Eat within 2 hours of waking, small frequent meals/snacks every 3- hours - - - - - Other Relevant Information Discussed @ Visit: - Materials Provided: plate method overview handout, produce box, recipes for box, meal timing handout, carbohydrate guide handout, 16 snacks that include protein handout, protein snacks handout, protein/fiber snacks handout, fiber and weight loss handout - - - - - Monitoring/Evaluation -Weight, total intake, nutrition related lab values - - - - - RD name and contact information provided. Patient with no further nutrition- related questions at this time. Patient to follow-up with RD in 6-8 weeks.. Patient seen from 1:38 to 2:02 PM for a total of 24 minutes spent with patient. Seen by Sebastian Grigsby MPH, RD, LD. 08/08/2025Urinary frequency (ICD-10 - R35.0) Patient reports frequent urination, stomach pain, and thick clear discharge. Symptoms are atypical for patient and prompted evaluation. - Ordered urinalysis to evaluate urinary symptoms. 08/08/2025oil, buttock (ICD-10 - L02.32)warm compresses, gently aspirate d/c, keep dry and covered, oral antibiotic, take until gone.08/11/2025ute UTI (ICD- 10 - N39.0)08/15/2025Dental caries on pit and fissure surface penetrating into dentin (ICD-10 - K02.52)06/08/2025Vitamin D deficiency (ICD-10 - E55.9) Pt presents [...] but other days no appetite Grocery Shopping: [facility] Household: Self, and 2 children Cooking: Self [...] once a week for 30 minutes Estimated [place] x 1.2 AF: 1,500 kcals/day for 2lbs/week [...] access to nutrition education as evidenced by 24-hr recall showing intake beyond needs, reported physical [...] 15minutes spent with patient. Seen by Sebastian Grigsby MPH, RD, LD. 08/08/2025Hidradenitis suppurativa (ICD-10 - L73.2) Raw, welted, itchy skin in armpits recurring every couple months. Symptoms have persisted for years, sometimes improving with sqla-vzv-wmdurvu creams. Patient previously referred to director gift as a child. - Recommended topical treatment and monitoring for improvement. - Discussed possible need for long-term antibiotics if symptoms persist. 05/02/2025Vitamin D deficiency (ICD-10 - E55.9) Pt presents for initial RD visit. Referred by Liyah Lozada NP Nutrition related Dx: E66.01 Obesity, E11.9 DM2, [...] once a week for 30 minutes Estimated [place] x 1.2 AF: 1,500 kcals/day for 2lbs/week weight loss - - - - - OBJECTIVE: Initial weight/BMI: 301.6 lbs / 53.42kg/m2 (03/14/25) - - - - - Nutrition Rx: Plate method; non-starchy vegetables; lean, low sodium protein sources; complex carbohydrates; heart healthy fats Protein/day: 70-85g/day (0.8-1.0 g/kg adj body weight) Nutrition Dx: 1. Obesity related to limited physical activity, inconsistent energy intake/excessive carbohydrate intake, food insecurity causing patient to consume low quality foods, and limited access to nutrition education as evidenced by 24-hr recall showing intake beyond needs, reported physical activity below recommendations, positive screening for food insecurity, and BMI >30 kg/m2. 2. Inadequate nutrient intake (fiber and protein) related to nutrition knowledge deficit as evidenced by 24 hr recall showing intake below recommended amount. - - - - - INTERVENTION: Summary of Visit/Education Provided: a) Overview of FIM program (expectations, box pick ups, etc.) b) Plate method c) Importance of fiber/protein for blood sugar regulation and satiety d) Importance of not skipping meals e) Different types of carbohydrates and how they impact blood sugar Worked with patient to set the following goals: 1) Switch to whole grain/whole wheat products instead of white 2) Eat within 2 hours of waking, small frequent meals/snacks every 3- hours - - - - - Other Relevant Information Discussed @ Visit: - Materials Provided: plate method overview handout, produce box, recipes for box, meal timing handout, carbohydrate guide handout, 16 snacks that include protein handout, protein snacks handout, protein/fiber snacks handout, fiber and weight loss handout - - - - - Monitoring/Evaluation -Weight, total intake, nutrition related lab values - - - - - RD name and contact information provided. Patient with no further nutrition- related questions at this time. Patient to follow-up with RD in 6-8 weeks.. Patient seen from 1:38 to 2:02 PM for a total of 24 minutes spent with patient. Seen by Sebastian Grigsby MPH, RD, LD. 03/14/2025Mixed anxiety and depressive disorder (ICD-10 - F41.8)Continue medication restarted today, potential side effects were discussed as well as proper administration of medication. Pt verbalizes understanding. Pt is aware not to stop medication suddenly andto come to office to be weaned down, abrupt discontinuation can cause withdrawal symptoms. Stable mood today, no c/o SI/HI, if feelings occur pt to call 911/ER. Discussed coping mechanisms such as exe rcise, group therapy, and counseling.5Boil, buttock (ICD-10 - L02.32) patient advised to come to office when occuring for an eval, concern for a pilondil cyst. Since reoccuring, enc warm compressing, keep area clean. clindamycin given to ensure clearing. pt VU in poc03/14/2025Gasping for breath (ICD-10 - R06.89)will have sleep study completed.08/08/2025Vitamin D deficiency (ICD-10 - E55.9)Will check Vit D level, continue Vitamin D replacement as advised. Discussed diet high in Vit D, also 10-15 minutes of direct sunlight is the best source of Vit D.03/14/2025Obesities, morbid (ICD-10 - E66.01)referral to health professional and FIM program. Counseled pt on diet and calorie intake. Discussed exercise as well. Enc to keep a food journal with all food/water/fluid intake including gum. Advised to stop pop/soda, and increase water intake. Counseled on processed foods, enc a balanced diet with fresh fruits/vegitables, low protein .08/08/2025Type 2 diabetes mellitus without complication, without long-term current use of insulin (ICD-10 - E11.9)AIC goal of 7.0. Labs ordered to review renal function. Urine for microalbumin within the year. Continue home monitoring of blood sugars; if <70 or >450 go to the ER. Pt enc to have annual eye exams as well as enc to not cut toe nails, routine foot care and checks with podiatry, if you develop any sores/concern RTO. F/U 3 rhfmwg1208/08/2025Otherbody mass index Plan Of Treatment Pending Test Test Name Order Date Urinalysis automated 08/08/2025 Next Appt Details Provider Name:Enedina Huerta, 08:00:00 AM, [address] [place], [address], Provider Name:Sebastian Castillo er, 10/24/2025 10:30:00 AM, [address] , [place], [address], Provider Name:Diana Cabrera, 02/06/2026 10:20:00 AM, [address] [place], [address], Insurance Providers Payer Name Payer Address Payer Phone Subscriber Number Group Number Insured Name Patient Relationship to Insured Coverage Start Date Coverage End Date [employer] [place] Medicaid [address] [place] [address] [id number] Yahir DIMAS - patient is the owjcjhh7512/03/2022Wrap [facility] CareSourcePO [address] [place] [id number], ASHLEYSelf - patient is the gpahdmh9712/03/2022z[employer]-termed 12/02/22[address] [place] [id number], ASHLEYSelf - patient is the [id number] [facility] after [employer]med 12/02/22[address] [place] [id number], ASHLEYSelf - patient is the [id number] [employer]med 12/02/[address] [place] [phone], ASHLEYSelf - patient is the [id number] MEDICAID [facility] after [employer] 12/02/[address] [place] [phone] [id number], ASHLEYSelf - patient is the irwmswe4012/03/2017 3Dental [employer] [facility] [address] [place] [address] [id number], ASHLEYSelf - patient is the insured 3Dental ap [facility] CareSourcePO [address] [place] [phone] [id number], ASHLEYSelf - patient is the zcdrvft1112/03/2022 Medical (General) History Medical History History ICD Code Alopecia Surgical History Surgery Date(Month/Year) C section 2017 Hospitalization History Reason Date(Month/Year) vaginal 2016 child 2017
--- OUTSIDE RECORDS SUMMARY | 2025-09-08 09:12 | XMS_ITS | Clinical Summary ---
Author Organization [facility] Address [address] [place] [address] Care Team Providers Care Babysitter Name Role Phone Unavailable Primary Care Provider Unavailabl e Allergies Active AllergyReactionsCriticalityNoted FhmhMcgffzqgBbexiYxxfCzq51/25/2016 Medications MedicationSigDispense QuantityRefillsLast FilledStart DateEnd DateStatus busPIRone (Buspar) 10 MG tablet take 1 tablet orally twice a day if wcxlgd0809/30/2023ctive Vraylar 1.5 MG capsule take 1 capsule orally once dailyActive Trulicity 0.75 MG/0.5ML solution pen-injector inject 0.75 milligram subcutaneously ONCE A WEEK02/17/2024ctive hydrOXYzine HCl (Atarax) 25 MG tablet 1 (one) time each day at the same timeActive Droplet Pen [place] 31G X 8 MM [facility] use 1 PEN NEEDLE to inject MEDICATION subcutaneously daily05/28/2023ctive Victoza 18 MG/3ML injection Inject 1.8 mg under the skin Daily06/05/2023ctive metFORMIN (Glucophage) 500 MG tablet every 12 (twelve) hoursActive sertraline (Zoloft) 50 MG tablet 1 (one) time each day at the same timeActive Social History Tobacco UseTypesPacks/DayYears UsedDateSmoking Tobacco: NeverSmokeless Tobacco: Never Tobacco Cessation:Counseling Given: Not Answered Alcohol UseStandard Drinks/WeekCommentsNever0 (1 standard drink = 0.6 oz pure alcohol)CommentsUnknownSex and Gender InformationValueDate RecordedSex Assigned at BirthNot on fileLegal FxyBrwcha63/15/2023 6:42 PM EDTGender Identity Not on fileSexual OrientationNot on file Last Filed Vital Signs Vital SignReadingTime TakenCommentsBlood Lyithxqk367/8606 12:12 PM EDT Xnhcj149904/18/2024 12:12 PM WKETpllaqccblf72.7 ??C (98 ??F)04/18/2024 12:12 PM EDTRespiratory Bkiq268404/18/2024 12:12 PM EDTOxygen Pttlaqzqev08%04/18/2024 12:12 PM EDTInhaled Oxygen Concentration--Utnbsy956 kg (276 lb 6.4 oz)04/18/2024 12:12 PM QMQEahsmi619.1 cm (5' 5 )09/28/2021 12:00 PM ESTBody Mass Grsgy137409/28/2021 12:00 PM EST Plan of Treatment Not on file Insurance
--- NOTE | 2025-09-08 09:28 | XR_ITS ---
The [address] [address] Patient Name: BERRY DIMAS MRN: [id number] date: 1995 Sex: F Assigned Patient Location: [facility] Current Patient Location: [facility] Accession/Order Number: [id number] Exam Date: 09/08/2025 09:44 Report Date: 09/08/2025 10:25 At the request of: STEPHAN HOLLIS MD Procedure: XR chest 2V PA AND LATERAL CHEST: CLINICAL HISTORY: Preoperative clearance. Diabetes and history of tobacco use COMPARISON: None There is no focal parenchymal consolidation, effusion or pneumothorax. The cardiac, hilar and mediastinal silhouettes are within normal limits. There is no vascular congestion. The visualized bony thorax is intact. XR/XR chest 2V IMPRESSION: NO ACUTE CARDIOPULMONARY ABNORMALITY. Impression dictated by: Virgie Soto M.D. 09/08/2025 10:25 AM Dictation Location: [place] [address] Electronically authenticated by: [id number] Y Date: 09/08/2025 10:25
== END 2025-09-08 09:05 | disposition home or self-care (01) ==
LOC: PST 09:07
PROVIDERS: Visit Provider Urology
DX: Z01.810 Encounter for preprocedural cardiovascular examination (principal); N20.1 Calculus of ureter
CPT/HCPCS: 71046

== ENCOUNTER 2025-09-13 12:28 | Day surgery (SDC) | payer OTHER, SELFPAY ==
--- OUTSIDE RECORDS SUMMARY | 2025-02-02 09:45 | XMS_ITS ---
Author Organization [facility] [facility] Address [address] [place] [address] Care Team Providers Care Solar Systems Designer Name Role Phone Liyah Lozada Primary Care Provider REASON FOR VISIT CHECK;F/U Social History Sex Assigned At : Social History Observation Description Sex Assigned At Female Encounters Encounter Location Date Provider Diagnosis [facility] [address] [facility] [place] [address] 02/02/2025 Liyah Lozada Plan Of Treatment Next Appt Details Provider Name:Enedina Deanna, 08:00:00 AM, [address], [place], [address], Provider Name:Sebastian gonzalez, 10/24/2025 10:30:00 AM, [address] [facility] , [address], [place], [address], Provider Name:Diana Cabrera, 02/06/2026 10:20:00 AM, [address], [place], [address], Progress Notes * BERRY DIMAS LDOB:1994 (29 yo F)Acc No.[id number]:02/02/2025 Progress Notes Patient: BERRY WEEMS :?Liyah Lozada NPDOB:1995???Age:29 Y???Sex: FemaleDate:02/02/2025Phone:[phone]:[address] [id number] Subjective: * Chief Complaints: * C HECK;F/U * Electronic signature of Liyah Lozada CNP on 09/13/2025 at 12:32 PM ESTSign off status: Pending * Provider: Haily Lozada NP Date: 0 02/02/2025 Generated for Printing/Faxing/eTransmitting on:?09/13/2025 12:32 PM EST
--- OUTSIDE RECORDS SUMMARY | 2025-02-22 08:00 | XMS_ITS ---
Author Organization [facility] Address [address] [place] [address] Care Team Providers Care Portfolio Director Name Role Phone Liyah Lozada Primary Care Provider [phone] Guerita Conn [phone] REASON FOR VISIT PERIO MAINT PERIO CHART BWXS Social History Sex Assigned At : Social History Observation Description Sex Assigned At Female Encounters Encounter Location Date Provider Diagnosis [facility] [address] [place] [address] 02/22/2025 Guerita Conn Plan Of Treatment Next Appt Details Provider Name:Enedina Huerta, 08:00:00 AM, [address] [place], [address], Provider Name:Sebastian gonzalez, 10/24/2025 10:30:00 AM, [address] [facility], [address], [place], [address], Provider Name:Diana Cabrera, 02/06/2026 10:20:00 AM, [address] [place], [address], Progress Notes * BERRY DIMAS LDOB:1994 (29 yo F)Acc No.[id number]:02/22/2025 Patient:?BERRY DIMAS :?Guerita ConnDOB:1995???Age:29 Y???Sex: FemaleDate:02/22/2025Phone:[phone]:[address] [place], [place]-[id number]:Liyah Lozada Subjective: * Chief Complaints: * P SIVAKUMAR MAINT PERIO CHART BWXS * Electronic signature of Guerita Conn on 09/13/2025 at 12:32 PM ESTSign off status: Pending * Provider: Miri Conn Date: 0 02/22/2025 Generated for Printing/Faxing/eTransmitting on:?09/13/2025 12:32 PM EST
--- OUTSIDE RECORDS SUMMARY | 2025-09-05 06:30 | XMS_ITS ---
Author Organization [employer] es Address [address] [facility] [place] [address] Care Team Providers Care Crystal Slicer Name Role Phone Liyah Lozada Primary Care Provider Sebastian Parham [phone] REASON FOR VISIT Dietitian F/U Social History Sex Assigned At : Social History Observation Description Sex Assigned At Female Encounters Encounter Location Date Provider Diagnosis [place] [address] [facility] [place] [address] 09/05/2025 Sebastian Parham Type 2 diabetes mellitus [...] once a week for 30 minutes Estimated [place] x 1.2 AF: 1,500 kcals/day for 2lbs/week [...] once a week for 30 minutes Estimated [place] x 1.2 AF: 1,500 kcals/day for 2lbs/week [...] once a week for 30 minutes Estimated [place] x 1.2 AF: 1,500 kcals/day for 2lbs/week [...] Deanna, 08:00:00 AM, [address], [place], [address], Provider Name:Sebastian Castillo , 10/24/2025 10:30:00 AM, [address] [facility], [place], [place], [address], Provider Name:Diana Cabrera, 02/06/2026 10:20:00 AM, [address], [place], [address], Progress Notes * BERRY DIMAS LDOB:1994 (29 yo F)Acc No.[id number]:09/05/2025 Patient:?BERRY DIMAS :?SEBASTIAN PARHAM RDDOB:1995???Age:29 Y ???Sex:FemaleDate:09/05/2025Phone:[phone]:[address] [place] [address] [id number]:Liyah Lozada Subjective: * Chief Complaints: * D [...] but other days no appetite? Grocery Shopping: [employer] Household: Self, and 2 children? Cooking: Self [...] once a week for 30 minutes? Estimated [place] x 1.2 AF: 1,500 kcals/day for 2lbs/week [...] Electronic signature of Sebastian Parham RD on 09/13/2025 at 12:32 PM ESTSign off status: Pending * Provider: Miri PARHAM RD Date: 11/05/2024 Generated for Printing/Faxing/eTransmitting on:?09/13/2025 12:32 PM EST
[2025-09-08 09:37] VITALS: BP 133/84; PULSE 66; TEMP 36.2; O2SAT 99; BMI 48.4
[2025-09-13] VITALS (10 sets, daily range): BP systolic 129–169; BP diastolic 80–91; PULSE 69–98; TEMP 36.5–37.2; O2SAT 92–98; BMI 47.5
--- OUTSIDE RECORDS SUMMARY | 2025-09-13 12:31 | XMS_ITS | Clinical Summary ---
Author Organization [facility] Address [address] [place] [address] Care Team Providers Care Senior Digital Designer Name Role Phone Liyah Lozada [employer]UM PLANT SUPERVISOR Primary Care Provider [phone] Allergies No known active allergies Medications MedicationSigDispense QuantityRefillsLast FilledStart DateEnd DateStatus ergocalciferol, vitamin D2, (DRISDOL) 50,000 unit capsule Take 1 capsule by mouth once each week. 4 capsule Active Encounters DateTypeDepartmentCare YidnLfndynxrbti65/17/2025Telephone Urology [address] [place] [address] José Luis Lentz MD Patient Questionfrom Last 3 Months Family History Medical HistoryRelationCommentsFibromyalgiaMotherRelationStatusCommentsMother Social History Tobacco UseTypesPacks/DayYears UsedDateSmoking Tobacco: Every DayCigarettes Smokeless Tobacco: Never Comments:4-5 a day Alcohol UseStandard Drinks/WeekCommentsNo0 (1 standard drink = 0.6 oz pure alcohol)PHQ-2AnswerDate RecordedPHQ-2 chnhw266Area Deprivation Index AnswerDate RecordedNational Score (1-100), lower number is lower riskNot on file 10/11/2020State Score (1-10), lower number is lower riskNot on file10/11/2020 Data from: https://www.neighborhoodatlas.medicine.[facility].edu/. Last address used for calculationNot on file10/11/2020CommentsUnknownSex and Gender InformationValueDate RecordedSex Assigned at BirthNot on fileLegal SexFemale 02/04/2017 4:30 PM EDTGender IdentityNot on fileSexual OrientationNot on file Last Filed Vital Signs Vital SignReadingTime TakenCommentsBlood Keznillq581/8311/25/2018 2:01 PM EST Jalax117711/25/2018 2:01 PM UYCMpctbuosznh01.8 ??C (98.2 ??F)11/25/2018 2:01 PM ESTRespiratory Rate--Oxygen Saturation--Inhaled Oxygen Concentration--Weight 110.9 kg (244 lb 8 oz)11/25/2018 2:01 PM LVRLchntm368.2 cm (5' 5.83 )11/25/2018 2:01 PM ESTBody Mass Index39.67011/25/2018 2:01 PM EST Plan of Treatment Health MaintenanceDue DateLast DoneCommentsAnxiety Vxelqpktj39/16/2011Depression Ghnmthlwa20/16/2011HIV Swsuznkfd07/16/2011Hepatitis C Mzmksrcyb66/16/2011 DTaP,Tdap,Td Vaccine (1 - Tdap)2012Hepatitis B Vaccine (1 of 3 - 19+ 3- dose series)2012Cervical Cancer Nnlkwbjeu64/16/2014HPV Vaccine (1 - 3-dose SCDM series)2020Covid-19 Vaccine ( - season)2025Influenza Vaccine (#1)2025 Procedures Procedure NamePriorityDate/TimeAssociated DiagnosisCommentsCT OUTSIDE CD DICOM FQJOQJ3308/18/2025 from Last 3 Months Results * CT-CT abdomen pelvis wo con IMPORT (08/18/2025)Anatomical RegionLaterality ModalityOtherSpecimen (Source)Anatomical Location / LateralityCollection Method / VolumeCollection TimeReceived Time08/18/2025 Narrative 08/20/2025 5:31 AM EDT Images were obtained outside of [facility] Procedure Note Provider, [facility] [place] - 08/20/2025 Images were obtained outside of [facility] Authorizing ProviderResult TypeResult StatusCcf ProviderRADIOLOGYFinal Result from Last 3 Months Insurance * Guarantor: Nicole BenderAccount TypeRelation to PatientDate of BirthPhone Billing AddressPersonal/ZqoziyGfmp1995 [facility] [place] [address] Care Teams Team MemberRelationshipSpecialtyStart DateEnd Date Liyah Lozada NP [address] [place] [address] PCP - GeneralFamily Medicine11/26/18
--- OUTSIDE RECORDS SUMMARY | 2025-09-13 12:32 | XMS_ITS | Patient Health Record ---
Author Organization [employer] [facility] Address [address] [place] [address] Care Team Providers Care Template Maker Name Role Phone Liyah Lozada Primary Care Provider [phone] Massimo Montez Unavailable [phone] Guerita Conn Unavailable [phone] Cinthia Montes Unavailable [phone] Sebastian Grigsby Unavailable [phone] DeannaEnedina Unavailable [phone] Allergies Allergen (clinical drug ingredient) Drug/Non Drug Allergy documented on EMR Reaction Allergy Type Onset Date Status VicodinrashDrug AllergyActivehydrocodoneHydrocodoneanaphylaxisDrug AllergyActive Results Component Value Reference Range Flag Notes URINE - Urinary Tract Infect ion + High Risk Sexual Behavior (HTRx) Reviewed date:08/11/2025 12:47:50 PM Interpretation: Performing Lab: Notes/Report: tet B, tet M 25.814 23.000 - 27.500 ppm tet B, tet DMnlpoeps88.000 - 27.500 ppmTrichomonas ytfkjjsoe271.000 - 31.995 ppm Trichomonas vaginalisNot Znpidfpv93.000 - 31.995 ppmStreptococcus pyogenes (Group A strep)019.961 - 24.689 ppmStreptococcus pyogenes (Group A strep)Not Hggbthdw05.961 - 24.689 ppmStreptococcus agalactiae (Group B Strep)026.000 - 32.435 ppmStreptococcus agalactiae (Group B Strep)Not Hyxhkvod12.000 - 32.435 ppmStaphylococcus cqakis923.000 - 31.595 ppmStaphylococcus aureusNot Detected 26.000 - 31.595 ppmSerratia ccerypfkzo416.000 - 31.581 ppmSerratia marcescensNot Donzugoq88.000 - 31.581 ppmPseudomonas efnriywbhu841.000 - 31.801 ppmPseudomonas aeruginosaNot Vhxtapnz75.000 - 31.801 ppmProteus mirabilis, aiinrowe499.000 - 28.500 ppmProteus mirabilis, vulgarisNot Utcqbiux06.000 - 28.500 ppmNeisseria uokprqslpjo392.000 - 32.587 ppmNeisseria gonorrhoeaeNot Wpokoxka82.000 - 32.587 ppmKlebsiella pneumoniae, lmihmrr618.000 - 31.865 ppmKlebsiella pneumoniae, oxytocaNot Xvserycx46.000 - 31.865 ppmEscherichia zsny111.000 - 28.500 ppm Escherichia coliNot Mzejtaon65.000 - 28.500 ppmEnterococcus faecalis, faecium0 26.000 - 33.043 ppmEnterococcus faecalis, faeciumNot Yriiyxvq70.000 - 33.043 ppm Enterobacter aerogenes, .000 - 32.290 ppmEnterobacter aerogenes, cloacaeNot Laxniupz35.000 - 32.290 ppmCitrobacter rnwsjqig722.000 - 32.015 ppm Citrobacter freundiiNot Oueaicqe49.000 - 32.015 ppmChlamydia fuciqwlqeye303.000 - 31.586 ppmChlamydia trachomatisNot Qeropsre44.000 - 31.586 ppmAcinetobacter hugvhelow187.961 - 24.689 ppmAcinetobacter baumanniiNot Vjzqztxj52.961 - 24.689 ppmMorganella ffrtwzut846.961 - 24.689 ppmMorganella morganiiNot Bmtngdqc75.961 - 24.689 ppmCandida albicans, parapsilosis, mrjcnexecu025.000 - 30.347 ppm Cassie albicans, parapsilosis, tropicalisNot Eaaaslcq78.000 - 30.347 ppmCandida glabrata (Nakaseomyces glabratus)023.000 - 31.618 ppmCandida glabrata (Nakaseomyces glabratus)Not Obrjnqcv67.000 - 31.618 ppmCandida krusei (Pichia kudriavzevii)023.000 - 30.873 ppmCandida krusei (Pichia kudriavzevii)Not Ikrjyqpo73.000 - 30.873 ppmMycoplasma zoocuwplzo754.961 - 24.689 ppmMycoplasma genitaliumNot Capogggu41.961 - 24.689 ppmMycoplasma txzwole566.961 - 24.689 ppm Mycoplasma hominisNot Bcpjvizq29.961 - 24.689 ppmStaphylococcus saprophyticus0 19.961 - 24.689 ppmStaphylococcus saprophyticusNot Lgubitlr41.961 - 24.689 ppm Staphylococcus epidermidis, haemolyticus, ezdcmkcorkf797.961 - 24.689 ppm Staphylococcus epidermidis, haemolyticus, lugdunensisNot Trssnqae74.961 - 24.689 ppmUreaplasma wfomdrcegng363.961 - 24.689 ppmUreaplasma urealyticumNot Detected 19.961 - 24.689 ppmUreaplasma sjogsm95.0919.961 - 24.689 ppmUreaplasma parvum Lopfjnvb35.961 - 24.689 ppmHemoglobin A1c Reviewed date:03/14/2025 04:52:10 PM Interpretation:5.5 Performing Lab: Notes/Report: 5.5Hemoglobin A1c5.55 - 7.9 %Comprehensive Metabolic Panel Reviewed date:03/20/2025 08:12:40 PM Interpretation: Performing Lab:, [facility], [address], [place] Notes/Report: Reason for Exam Iron deficiency Reason for Exam Type 2 diabetes mellitus without complication, without xhrj-Udsacli4609-876 mg/dLN Random Glucose Reference Range is dependent on time and content of last meal. Glucose of more than 200 mg/dL in a nonstressed, ambulatory subject supports the diagnosis of Diabetes Mellitus. ADA recommended reference range Blood Urea Ifplfzbp233-23 mg/dLNCreatinine0.800.60-1.20 mg/vWQYesdlc956756-078 mmol/LNPotassium4.33.5-5.1 mmol/YWBzedgdpe80334-983 mmol/LNCarbon Jcnyube53.4 21.0-31.0 mmol/LNCalcium8.78.6-10.3 mg/dLNTotal Protein6.96.4-8.9 g/dLNAlbumin Level4.03.5-5.7 g/dLNGlobulin2.9Albumin/Globulin Ratio1.4Bilirubin,Total0.40.3- 1.0 mg/dLNAspartate Amino Kwwzybfcleg3133-92 U/LNAlanine Acwehjoybbthfgcx491-02 U/LNAlkaline Tuqnbkbswij2027-959 U/LNEstimated GFR>60.0Anion Gap10.96.0-15.0 meq/LNThyroid Stim Hormone w/Rflx Reviewed date:03/20/2025 08:12:49 PM Interpretation: Performing Lab: Notes/Report: Reason for Exam Iron deficiency Reason for Exam Type 2 diabetes mellitus without complication, without long-Thyroid Stim Hormone w/Rflx3.160.45-5.33 u[iU]/mLN Complete Blood Count Auto Diff Reviewed date:03/20/2025 08:12:30 PM Interpretation: Performing Lab:, [facility], [address] [place] Notes/Report: Reason for Exam Type 2 diabetes mellitus without complication, without long-White Blood Count10.03.8-11.6 10*3/uLNUncorrected WBC 10.03.8-11.6 10*3/uLNRed Blood Count4.603.60-5.00 10*6/fRCViygvnhzap96.611.8- 15.4 g/mNQXypcsvckxb83.934.0-46.4 %NMean Corpuscular Brkjod25.380-100 fLNMean Corpuscular Bjtgzxkbsc34.524.7-34.3 pgNMean Corpuscular HGB Conc33.432.0-35.0 g/dLNRed Cell Distribution Width14.211.9-15.3 %NPlatelet Aoslz317221-580 10*3/uL NMean Platelet Volume8.06.3-10.7 fLNNeutrophils % (Auto)51.7. %Lymphocytes % (Auto)42.7. %Monocytes % (Auto)4.3. %Eosinophils % (Auto)1.1. %Basophils % (Auto)0.2. %NRBC%0.10-0.5 /100{WBC}NNeutrophils # (Auto)5.21.8-7.7 10*3/uLN Lymphocytes # (Auto)4.31.00-4.8 10*3/uLNMonocytes # (Auto)0.40.0-0.8 10*3/uLN Eosinophils # (Auto)0.10.0-0.45 10*3/uLNBasophils # (Auto)0.00.0-0.2 10*3/uLN Iron and TIBC Profile Reviewed date:03/20/2025 08:14:12 PM Interpretation: Performing Lab: Notes/Report: Reason for Exam Iron deficiency Reason for Exam Type 2 diabetes mellitus without complication, without dbdx-Fthu9979-555 ug/dLNTotal Iron Binding Voqddker713779- 450 ug/dLN% Iron Rlfqbsjxyp91.320-50 %UPhruojlaezc625896-486 mg/dLNComplete Blood Count Auto Diff Reviewed date:08/09/2025 09:44:06 AM Interpretation: Performing Lab:, [facility], [address], [place] Notes/Report: Reason for Exam Boil, buttockWhite Blood Count10.03.8-11.6 [CFU]/mLNUncorrected WBC10.03.8-11.6 10*3/uLNRed Blood Count4.773.60-5.00 10*6/mVCDsvbklrgmm83.311.8- 15.4 g/yNTLwoxtdivfd07.834.0-46.4 %NMean Corpuscular Ltsdpy20.480-100 fLNMean Corpuscular Udpowbkhle93.824.7-34.3 pgNMean Corpuscular HGB Conc33.332.0-35.0 g/dLNRed Cell Distribution Width13.911.9-15.3 %NPlatelet Jryag042963-671 10*3/uL NMean Platelet Volume8.76.3-10.7 fLNNeutrophils % (Auto)47.8. %Lymphocytes % (Auto)42.8. %Monocytes % (Auto)6.3. %Eosinophils % (Auto)2.4. %Basophils % (Auto)0.7. %NRBC%0.20-0.5 /100{WBC}NNeutrophils # (Auto)4.81.8-7.7 10*3/uLN Lymphocytes # (Auto)4.31.00-4.8 10*3/uLNMonocytes # (Auto)0.60.0-0.8 10*3/uLN Eosinophils # (Auto)0.20.0-0.45 10*3/uLNBasophils # (Auto)0.10.0-0.2 10*3/uLN Thyroid Stim Hormone w/Rflx Reviewed date:08/09/2025 09:39:47 AM Interpretation: Performing Lab: Notes/Report: Reason for Exam Boil, buttock Reason for Exam Type 2 diabetes mellitus without complication, without long-Thyroid Stim Hormone w/Rflx1.560.45-5.33 u[iU]/mLN Lipid Panel Reviewed date:08/09/2025 09:39:53 AM Interpretation: Performing Lab: Notes/Report: Reason for Exam Boil, buttock Reason for Exam Type 2 diabetes mellitus without complication, without oalg-Kdrsjdhlezl517385-215 mg/dLN Chol less than 200 mg/dl low risk Chol 201-239 mg/dl borderline risk Chol 240 mg/dl and greater high risk HDL Dylushoctjn2784-34 mg/dLN HDL CHOL ATP-III CLASSIFICATION Cardiovascular Risk HDL > or equal to 60 mg/dL LOW HDL < 40 mg/dL HIGH Triglyceride w/Qpvdwz1038-866 mg/dLN TRIG ATP III CLASSIFICATION TRIG less than 150 mg/dL Normal TRIG 150-199 mg/dL Borderline high TRIG 200-500 mg/dL High TRIG greater than 500 mg/dL Very high Standard traceable to the Center for Disease Conrtrol and Prevention (CDC) test method. LDL Cholesterol,Ijjffbgoxf256-988 mg/dLN LDL ATP III CLASSIFICATION LDL less than 100 mg/dL Optimal LDL 100-129 mg/dL Near or above optimal LDL 130-159 mg/dL Borderline high LDL 160-189 mg/dL High LDL greater than 189 mg/dL Very high VLDL YNIJOTLDYTC87Uxzh/HDL Ratio3.0<5.0Comprehensive Metabolic Panel Reviewed date:08/09/2025 09:39:59 AM Interpretation: Performing Lab:, [facility], [address] Notes/Report: Reason for Exam Boil, buttock Reason for Exam Type 2 diabetes mellitus without complication, without alzg-Ewdyoum0602-655 mg/dLN Random Glucose Reference Range is dependent on time and content of last meal. Glucose of more than 200 mg/dL in a nonstressed, ambulatory subject supports the diagnosis of Diabetes Mellitus. ADA recommended reference range Blood Urea Yiaiabrl948-67 mg/dLNCreatinine0.780.60-1.20 mg/aQWCkkfeq671591-901 mmol/LNPotassium5.13.5-5.1 mmol/VUMtkusjqx41813-409 mmol/LNCarbon Narenbv15.3 21.0-31.0 mmol/LNCalcium9.78.6-10.3 mg/dLNTotal Protein7.66.4-8.9 g/dLNAlbumin Level4.53.5-5.7 g/dLNGlobulin3.1Albumin/Globulin Ratio1.5Bilirubin,Total0.30.3- 1.0 mg/dLNAspartate Amino Tazkwygjtqc5217-05 U/LNAlanine Mwcuqckdofgavkey502-58 U/LNAlkaline Zcbowmnfjmw3460-087 U/LNEstimated GFR>60.0Anion Gap12.86.0-15.0NA1C with Estimated Average Glu Reviewed date:08/09/2025 10:33:28 AM Interpretation: Performing Lab:, [facility], [address] Notes/Report: Reason for Exam Type 2 diabetes mellitus without complication, without long-Hemoglobin A1C5.74.3-5.6 %H Increased risk for diabetes: 5.7 - 6.4 diabetes: >6.4 glycemic control for adults with diabetes: <7.0 Estimated Average Nntzjym623Xigxgaqayd automated (Not yet reviewed by provider) Interpretation: Performing Lab: Notes/Report: Urine-ColoryellowAppearanceclearSpecific Gravity1.015pH6.0GlucoseNEGProteinNEG Occult BloodPOSBilirubinNEGUrobilinogen,Semi-QnNEGNitrite, UrineNEGKetonesNEGWBC EsteraseNEGUrinalysis Gross ExamNEG Reason For Referral Reason FIM program, diabeti c diet education TE 03/15 Diagnosis 1 Obesities, morbid (E 66.01) Referral Organization [facility] Referring Provider First Name Liyah Referring Provider Last Name Kierra Referring Provider Speciality Nurse Mauro valencia Referred Provider Specialty Diesel Stationary Engineer Referral Priority Routine Medications Medication SIG (Take, [...] hurting yourself in some wayNot at allTotal Trmzj8Uahupwprq abuse/mental health issues of patient/familyPatient -Caffeine Use,AlcoholAbility [...] in the past year?Less than monthly (1 point)Rtxhny0TbreafgfjnzxkbTqgovyleJsulzua Use:Social InfoQuestionAnswerNotesTobacco Control (Standard)Tobacco use: Nonsmoker Problems Problem Type SNOMED Code ICD Code Onset Dates Problem Status W/U Status Risk Notes Problem Hidradenitis suppurativa (76335611) Hidra denitis suppurativa (L73.2) ActiveconfirmedProblemVitamin D deficiency (77129529)Vitamin D deficiency (E55.9)ActiveconfirmedProblemAnxiety (71096113)Anxiety (F41.9)Activeconfirmed ProblemGoiter (1472401)Enlarged thyroid (E04.9)ActiveconfirmedProblemType II diabetes mellitus without complication (832084386)Type 2 diabetes mellitus without complication, without long-term current use of insulin (E11.9)Active confirmedProblemMorbid obesity (145982190)Obesities, morbid (E66.01)Active confirmedProblemMixed anxiety and depressive disorder (000852756)Mixed anxiety and depressive disorder (F41.8)Activeconfirmed Vital Signs Heart Rate 75 /min 08/08/2025 Ebkfqeqnrxt66.0 degrees Wgaspzsokl81/07/2025Respiratory Rate18 /min08/08/2025 Mmpynutq23 %08/08/2025lood pressure zasvbgtiy19 mm Hg08/08/20252478Qxczpw9we 3in in 08/08/2025lood pressure acmjupvc172 mm Hg08/08/20255116Yeogpq751 lbs1MI 50.83 kg/m208/08/2025 Encounters Encounter Location Date Provider Diagnosis [facility] [address] [place] [address] 09/20/2024 [facility] [address] [place] [address] [facility] [place] [address] 03/15/2025[facility] [place] [address]/Laura SpasicIron deficiency E61.1[facility] [place] [address]/08/2025Laura SpasicIron deficiency E61.1[facility] [place] [address] 05/23/2025[facility] [address] [place] [address]/06/2025[facility] [place] [address]/08/2025[facility] N39.0[facility] [place] [address]/[facility] SpasicType 2 diabetes mellitus without complication, without long-term current use of insulin E11.9[facility] [place] [address] 11/26/2024[facility] [place] [address]/[facility] [place] [address]/[facility] [place] [address]/[facility] SpasicIron deficiency E61.1 ; Type 2 diabetes mellitus without complication, without long-term current use of insulin E11.9 ; Mixed anxiety and depressive disorder F41.8 ; Boil, buttock L02.32 ; Gasping for breath R06.89 and Obesities, morbid E66.01[facility] [place] [address]/Esther YiDental caries on pit and fissure surface penetrating into dentin K02.52[facility] [place] [address]/Jasmina SaricDental caries on pit and fissure surface penetrating into dentin K02.52[facility] [address] [place] [address]/11/2024Kendall KasperType 2 diabetes mellitus without complication, without long-term current use of insulin E11.9 ; Obesities, morbid E66.01 and Vitamin D deficiency E55.9S [address] [place] [address]/05/2025Kendall KasperType 2 diabetes mellitus without complication, without long-term current use of insulin E11.9 ; Obesities, morbid E66.01 and Vitamin D deficiency E55.[address] [address]/05/2025Laura SpasicUrinary frequency R35.0 ; Boil, buttock L02.32 ; Hidradenitis suppurativa L73.2 ; Vitamin D deficiency E55.9 and Type 2 diabetes mellitus without complication, without long-term current use of insulin E11.9 Assessments Encounter Date Diagnosis (ICD Code) Assessment [...] once a week for 30 minutes Estimated [place] x 1.2 AF: 1,500 kcals/day for 2lbs/week [...] once a week for 30 minutes Estimated [place] x 1.2 AF: 1,500 kcals/day for 2lbs/week [...] once a week for 30 minutes Estimated [place] x 1.2 AF: 1,500 kcals/day for 2lbs/week [...] once a week for 30 minutes Estimated [place] x 1.2 AF: 1,500 kcals/day for 2lbs/week [...] but other days no appetite Grocery Shopping: [facility] Household: Self, and 2 children Cooking: Self [...] once a week for 30 minutes Estimated [place] x 1.2 AF: 1,500 kcals/day for 2lbs/week [...] 15minutes spent with patient. Seen by Sebastian Grigsyb MPH, RD, LD. 08/08/2025Hidradenitis suppurativa (ICD-10 - L73.2) Raw, welted, itchy skin in armpits recurring every couple months. Symptoms have persisted for years, sometimes improving with rabp-pwi-hcdmzze creams. Patient previously referred to flight test shop mechanic as a child. - Recommended topical treatment [...] once a week for 30 minutes Estimated [place] x 1.2 AF: 1,500 kcals/day for 2lbs/week [...] such as exe rcise, group therapy, and counseling.03/14/2025oil, buttock (ICD-10 - L02.32) patient advised to [...] Vit D.03/14/2025Obesities, morbid (ICD-10 - E66.01)referral to bottling attendant and FIM program. Counseled pt on diet [...] you develop any sores/concern RTO. F/U 3 egvcyf8608/08/2025Otherbody mass index Plan Of Treatment Pending Test Test Name Order Date Urinalysis automated 08/08/2025 Next Appt Details Provider Name:Enedina Deanna, 08:00:00 AM, [address] [place], [address], Provider Name:Sebastian Castillo er, 10/24/2025 10:30:00 AM, [address], [address], [place], [address], Provider Name:Diana Cabrera, 02/06/2026 10:20:00 AM, [address] [place], [address], Insurance Providers Payer Name Payer Address Payer Phone Subscriber Number Group Number Insured Name Patient Relationship to Insured Coverage Start Date Coverage End Date [employer] [place] Medicaid [address] [place] [address] [id number] DIMASYahir HOLLINS - patient is the nfdbmwh3512/03/2022Wrap [facility] CareSourcePO [address] [place] [id number], ASHLEYSelf - patient is the bmswcal3612/03/2022z[employer]-termed 12/02/22 [address] [place] [id number], ASHLEYSelf - patient is the [id number] [facility] after [employer]med 12/02/[address] [place] [id number], Yahir - patient is the [id number] [employer] 12/02/[address] [place] [phone] - patient is the wnhhgdj65zDental MEDICAID [facility] after [employer] 12/02/[address] [place] [phone] [id number], ASHLEYSelf - patient is the niaadwi7112/03/2017 3Dental [employer] DQ [facility] [address] [place] [address] [id number], ASHLEYSelf - patient is the insured 12/03/2022ental ap [facility] CareSourcePO [address] [place] [phone] [id number], ASHLEYSelf - patient is the dugkula0112/03/2022 Medical (General) History Medical History History ICD Code Alopecia Surgical History Surgery Date(Month/Year) C section 2017 Hospitalization History Reason Date(Month/Year) vaginal 2016 child 2017
--- OUTSIDE RECORDS SUMMARY | 2025-09-13 12:32 | XMS_ITS | Clinical Summary ---
Author Organization [facility] Address [address] [place] [address] Care Team Providers Care Gps Navigation Installer Name Role Phone Unavailable Primary Care Provider Unavailabl e Allergies Active AllergyReactionsCriticalityNoted XvttVzurrnezDvqphAyrrJrw35/25/2016 Medications MedicationSigDispense QuantityRefillsLast FilledStart DateEnd DateStatus busPIRone (Buspar) 10 MG tablet take 1 tablet orally twice a day if irrjlj5309/30/2023ctive Vraylar 1.5 MG capsule take 1 capsule orally once dailyActive Trulicity 0.75 MG/0.5ML solution pen-injector inject 0.75 milligram subcutaneously ONCE A WEEK02/17/2024ctive hydrOXYzine HCl (Atarax) 25 MG tablet 1 (one) time each day at the same timeActive Droplet Pen Spencer 31G X 8 MM [facility] use 1 PEN NEEDLE to inject MEDICATION [...] InformationValueDate RecordedSex Assigned at BirthNot on fileLegal BadBlsdwp28/15/2023 6:42 PM EDTGender Identity Not on fileSexual OrientationNot on file Last Filed Vital Signs Vital SignReadingTime TakenCommentsBlood Weecijtu100/8606 12:12 PM EDT Srbcf876104/18/2024 12:12 PM SBHJktevjgjdtb24.7 ??C (98 ??F)04/18/2024 12:12 PM EDTRespiratory Kwfn167704/18/2024 12:12 PM EDTOxygen Cukdikedrg72%04/18/2024 12:12 PM EDTInhaled Oxygen Concentration--Nfuopo873 kg (276 lb 6.4 oz)04/18/2024 12:12 PM GQCHasery116.1 cm (5' 5 )09/28/2021 12:00 PM ESTBody Mass Mqksd812709/28/2021 12:00 PM EST Plan of Treatment Not on file Insurance
--- OUTSIDE RECORDS SUMMARY | 2025-09-13 12:32 | XMS_ITS | Clinical Summary ---
Author Organization [facility] [place] [address] Care Team Providers Care Double Head Machine Operator Name Role Phone Michael Webb MD Primary Care Provider [phone] Michael Webb MD Unavailable Allergies Active AllergyReactionsCriticalityNoted DihdTktynpumAtjjpBhmx94/25/2016 Medications MedicationSigDispense QuantityRefillsLast FilledStart DateEnd DateStatus Vit-Fe Fumarate-FA (PNV PLUS MULTIVITAMIN) 27-1 MG TABS 12/03/2015Active IBUPROFEN PO Take by mouth Pt unsure of the dosage, but she will take as needed, and says that she takes it about every few days.Active Active Problems Patient Care Coordination No te Formatting of this note is d ifferent from the original. [facility] Plan of care (Jon) Ours Diagnosis: Duodenal atresia, Polyhydramnios, abnormal cardiac findings. Amniocentesis: 46,XY and negative for 22q11.2 microdeletion. ?? echocardiogram 01/29/17: 1. Discrepancy in ventricular size and great arteries with right side larger compared to the left side. 2. 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 No bridging vein seen. 3. Small echogenic foci seen in left ventricle. ?? Follow up echocardiogram 02/16/17: 1. Discrepancy in ventricular size and great arteries with right side larger compared to the left side. 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 2. 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 No bridging vein seen. ?? Plan: 1. Follow up q4 weeks to evaluate biometric parameters. 2. Follow up echocardiograms as scheduled with Pediatric Cardiology. 3. surveillance as follows: Weekly BPP. 4. consultations with Neonatology and Pediatric Surgery have been completed. 5. Delivery is recommended in [place] with follow up as indicated. A transfer of care has been accomplished. 6. Mode of delivery is based on the usual obstetrical indications. 7. Delivery is recommended at 39 weeks given need for coordinated care. 8. Neonatology to be present at delivery to evaluate and stabilize and to transport to [facility]. 9. consultation with Pediatric Surgery and Cardiology. 10. Additional follow up as clinically indicated. PLAN OF CARE iNcole Bender is 21 y.o. with Estimated Date of Delivery: 04/06/17 with: Patient Active Problem List Diagnosis ??? Obesity ??? Polyhydramnios, antepartum complication ??? Short interval between pregnancies affecting in third trimester, antepartum ??? Duodenal atresia, , affecting care of mother, antepartum ??? Chlamydia infection affecting in third trimester Is this a Treatment patient? Yes MD/OB APPOINTMENTS How often should patient be evaluated? weekly until delivery Work restrictions: none EVALUATION surveillance: BPP weekly Ultrasound: monthly growth DELIVERY PLAN Hospital: [facility] Induction at 39 weeks GBS culture: Positive Contraception: Plan of care including hospitalist coverage has been reviewed with patient input, and patient understands. Nursing Notes: ProblemNoted DateDiagnosed DateDuodenal atresia, , affecting care of mother, zgxkqnpfcu00/13/2017 Overview (02/12/2017): Normal karyotype Chlamydia infection affecting in third zoohezwvy07/13/2017Short interval between pregnancies affecting in third trimester, antepartum 01/29/2017Polyhydramnios, antepartum rtwrvlyiipwo45/29/2446Clysdyx69/25/2016 Family History Medical HistoryRelationCommentsCancerMaternal GrandmotherDiabetesMaternal GrandmotherHypertensionMaternal GrandmotherHypertensionMotherRelationStatus CommentsMaternal GrandmotherMother Social History Tobacco UseTypesPacks/DayYears UsedDateSmoking Tobacco: FormerSmokeless Tobacco: FormerAlcohol UseStandard Drinks/WeekCommentsNo0 (1 standard drink = 0.6 oz pure alcohol)CommentsNoSex and Gender InformationValueDate RecordedSex Assigned at BirthNot on fileLegal UtvSxzcdq89/18/2016 2:35 PM ESTGender Identity Not on fileSexual OrientationNot on fileOccupationIndustryJob Start DateJob End DateunemployedNot on fileNot on fileNot on file Last Filed Vital Signs Vital SignReadingTime TakenCommentsBlood Qgcrunwf270/8005 12:58 PM EDT Zrurb6779 1:21 PM EDTTemperature--Respiratory Rate--Oxygen Saturation-- Inhaled Oxygen Concentration--Cdnvcy967 kg (235 lb 12.8 oz)03/19/2017 12:58 PM YVOCpinxk546.6 cm (5' 5.98 )02/16/2017 2:39 PM EDTBody Mass Index38.0802/16/2017 2:39 PM EDT Plan of Treatment Health MaintenanceDue DateLast DoneCommentsMMR (1 of 1 - Standard series) 1994Tetanus Diphtheria and Pertussis Vaccines (1 - Tdap)2000 Varicella (1 of 2 - 13+ 2-dose series)2006MenB (1 of 2 - MenB 2-Dose Series Bexsero)2009Hepatitis B (1 of 3 - 19+ 3-dose series)2012HPV (1 - 3-dose SCDM series)2020COVID-19 ( - season)2025FLU (#1)07/03/2025HIBAged OutNo longer eligible based on patient's age to complete this topicHepatitis AAged OutNo longer eligible based on patient's age to complete this topicMenACWYAged OutNo longer eligible based on patient's age to complete this topicNirsevimabAged OutNo longer eligible based on patient's age to complete this topicPneumococcalAged OutNo longer eligible based on patient's age to complete this topicPolioAged OutNo longer eligible based on patient's age to complete this topicRotavirusAged OutNo longer eligible based on patient's age to complete this topic Insurance Care Teams Team MemberRelationshipSpecialtyStart DateEnd Date Michael Webb MD [address] [place] [address] PCP - General12/20/15 Michael Webb MD [address] [place] [address] Attending Provider01/28/17
--- OUTSIDE RECORDS SUMMARY | 2025-09-13 12:32 | XMS_ITS | Clinical Summary ---
Author Organization [facility] Address [address] [place] [address] Care Team Providers Care Retread Mold Operator Name Role Phone Unavailable Primary Care Provider Unavailabl e Social History Tobacco UseTypesPacks/DayYears UsedDateSmoking Tobacco: Never Assessed CommentsUnknownSex and Gender InformationValueDate RecordedSex Assigned at Not on fileLegal AjzWxyrbn03/04/2017 1:41 PM EDTGender IdentityNot on fileSexual OrientationNot on file Plan of Treatment Not on file
[2025-09-13] MEDS: CEFAZOLIN SODIUM 2 GM/50 ML D5W PREMIX IV (14:28)
[2025-09-13] MEDS: IOHEXOL 300 MG/ML - 50 ML BTL INJ (15:29)
--- NOTE | 2025-09-13 15:51 | PM.URSON ---
Urology Surgery Operative Note Operative Note Procedure Date: 09/13/25 Time Out Performed: yes Pre-op Diagnosis: Obstructing distal left ureteral calculus Post-op Diagnosis: other (Impacted distal left ureteral calculus) Procedures performed: 1. Cystoscopy. 2. Left retrograde pyelogram. 3. Left ureteroscopy. 4. Thulium laser lithotripsy of left ureteral calculus impacted. 5. Stone fragment basket extraction. 6. Placement of 6 Kittitian variable length left ureteral stent Anesthesia: CHING Primary Surgeon: Lupillo Webb Complications: None Estimated blood loss (mL): 0 Findings: 1. Large tightly impacted distal left ureteral calculus. Specimens: Left ureteral calculus fragments Drains: 6 Kittitian variable length left ureteral stent Indications for Procedures: This lady has a 7 mm distal left ureteral calculus that she has been unable to pass. She has had it for at least 3 weeks. She is having pain every day. She now presents for definitive ureteroscopic stone manipulation and probable stent placement. She has signed an informed consent after risks were explained. Detailed description of Procedure: The patient was brought to the operating room and placed on the operating room table in the supine position. SCDs were placed on the lower extremities and turned on and functioning during the entire case. Timeout was done by all parties in the room. We all agreed upon the patient's identification and the planned procedures for this patient. Genn. anesthesia was then administered. The patient was then repositioned into the modified dorsal lithotomy position. All pressure points were satisfactorily padded. Genitalia were sterilely prepped and draped in usual fashion. I started by passing a 22 Kittitian Olympus cystoscope per urethra and into the bladder. Panendoscopy in the bladder revealed a flame red left ureteral orifice. It was edematous. I then passed a Glidewire through the scope and guided into the ureter. It quickly buckled. I could not get the wire up. I then passed a 6 Kittitian open-ended catheter over the wire and with some manipulation was able to get the wire beyond the stone up into the kidney. The catheter was removed. The scope was removed. I then passed a semirigid ureteroscope into the bladder and into the ureter. The stone was tightly impacted. I then passed a 270 Angstrom laser fiber through the scope. I made contact with the stone and while using the thulium laser I started at 6 W and went up to 8 W fragmentation mode. I was able to crack up the stone and chisel the pieces adhered to the wall off of the wall with the tip of the fiber while the laser was off. I then did a retrograde pyelogram to illuminate the anatomy. The wire was correctly in the ureter and kidney. I then used a 0 tip nitinol basket and engaged pieces and dumped them in the base of the bladder. I went up and down the distal ureter numerous times until the ureter was free of stone. The extreme distal portion of the ureter was very indurated and there was ratty inflammatory material adhered to it. It was extremely edematous. The ureteroscope was removed. I then backloaded the cystoscope over the wire and passed it into the bladder and then slid a 6 Kittitian variable length stent over the wire up into the kidney. The wire was removed and there were good curls in the renal pelvis and in the bladder. I then used the [employer] [facility] (T[facility])k evacuator to get all the stone pieces out from the base of the bladder. These were sent for stone analysis. The bladder was drained of its contents and the scope was then removed. She was then transferred to a [facility] bed and wheeled to PACU in stable condition.
[2025-09-13] MEDS: SOLIFENACIN SUCCINATE 10 MG TABLET PO (16:01)
--- NOTE | 2025-09-13 16:46 | PC.NURSE ---
1644: Pt ambulates to bathroom. voids without difficulty, urine clear,pink no clots noted.
== END 2025-09-13 16:50 | disposition home or self-care (01) ==
LOC: SURGOUT 12:29
PROVIDERS: Anesthesiology; Visit Provider Urology
PROC: (CPT 918; principal; 2025-09-13 14:00)
DX: N20.1 Calculus of ureter (principal); E11.9 Type 2 diabetes mellitus without complications; Z79.84 Long term (current) use of oral hypoglycemic drugs; E66.01 Morbid (severe) obesity due to excess calories; Z68.42 Body mass index [BMI] 45.0-49.9, adult; F32.A Depression, unspecified; F41.9 Anxiety disorder, unspecified; F43.10 Post-traumatic stress disorder, unspecified
CPT/HCPCS: 52356; 36415; 74420; 82365; 84703; 99999; J0690; J1100; J1885; J2250; J2405; J2704; J3010; Q9967

== ENCOUNTER 2025-09-21 12:55 | Outpatient (OUT) | payer OTHER, SELFPAY ==
--- OUTSIDE RECORDS SUMMARY | 2025-02-02 09:45 | XMS_ITS ---
Author Organization [employer] [facility] Address [address] [place] [address] Care Team Providers Care Physical Sciences Instructor Name Role Phone Liyah Lozada Primary Care Provider [phone] REASON FOR VISIT CHECK;F/U Social History Sex Assigned At : Social History Observation Description Sex Assigned At Female Encounters Encounter Location Date Provider Diagnosis [facility] [address] [facility] [address] 02/02/2025 Liyah Lozada Plan Of Treatment Next Appt Details Provider Name:Enedina Deanna, 08:00:00 AM, [address], [place], [address], Provider Name:Sebastian gonzalez, 10/24/2025 10:30:00 AM, [address] [facility] , [address], [place], [address], Provider Name:Diana Cabrera, 02/06/2026 10:20:00 AM, [address], [place], [address], Progress Notes * BERRY DIMAS LDOB:1994 (29 yo F)Acc No.[id number]:02/02/2025 Progress Notes Patient: BERRY WEEMS :?Liyah Lozada NPDOB:1995???Age:29 Y???Sex: FemaleDate:02/02/2025Phone:[phone]:[address] [place]-[id number] Subjective: * Chief Complaints: * C HECK;F/U * Electronic signature of Liyah Lozada CNP on 09/21/2025 at 12:59 PM ESTSign off status: Pending * Provider: Haily Lozada NP Date: 0 02/02/2025 Generated for Printing/Faxing/eTransmitting on:?09/21/2025 12:59 PM EST
--- OUTSIDE RECORDS SUMMARY | 2025-02-22 08:00 | XMS_ITS ---
Author Organization [facility] Address [address] [place] [address] Care Team Providers Care Purchasing Expeditor Name Role Phone Liyah Lozada Primary Care Provider Guerita Conn [phone] REASON FOR VISIT PERIO MAINT PERIO CHART BWXS Social History Sex Assigned At : Social History Observation Description Sex Assigned At Female Encounters Encounter Location Date Provider Diagnosis [facility] [address] [place] [address] 02/22/2025 Guerita Conn Plan Of Treatment Next Appt Details Provider Name:Enedina Huerta, 08:00:00 AM, [address] [place], [address], Provider Name:Sebastian gonzalez, 10/24/2025 10:30:00 AM, [address] [facility], [address], [place], [address], Provider Name:Diana Cabrera, 02/06/2026 10:20:00 AM, [address] [place], [address], Progress Notes * BERRY DIMAS LDOB:1994 (29 yo F)Acc No.[id number]:02/22/2025 Patient:?BERRY DIMAS :?Guerita ConnDOB:1995???Age:29 Y???Sex: FemaleDate:02/22/2025Phone:[phone]:[address] [place], [place]-[id number]:Liyah Lozada Subjective: * Chief Complaints: * P SIVAKUMAR MAINT PERIO CHART BWXS * Electronic signature of Guerita Conn on 09/21/2025 at 01:00 PM ESTSign off status: Pending * Provider: Miri Conn Date: 0 02/22/2025 Generated for Printing/Faxing/eTransmitting on:?09/21/2025 01:00 PM EST
--- OUTSIDE RECORDS SUMMARY | 2025-09-05 06:30 | XMS_ITS ---
Author Organization [employer] [facility] Address [address] [facility] [place] [address] Care Team Providers Care Branch Service Associate Name Role Phone Liyah Lozada Primary Care Provider Sebastian Parham [phone] REASON FOR VISIT Dietitian F/U Social History Sex Assigned At : Social History Observation Description Sex Assigned At Female Encounters Encounter Location Date Provider Diagnosis [place] [address] [facility] [address] 09/05/2025 Sebastian Parham Type 2 diabetes mellitus without complication, without long-term current use of insulin E11.9 ; Obesities, morbid E66.01 and Vitamin D deficiency E55.9 Assessments Encounter Date Diagnosis (ICD Code) Assessment Notes Treatment Notes Treatment Clinical Notes Section Notes 09/05/2025 Type 2 diabetes chyna itus without complication, without long-term current use of insulin (ICD-10 - E11.9) Pt presents for follow up RD visit. Referred by Liyah Lozada NP Sucessful changes: Eating breakfast within 2 hours of waking, eating small, frequent meals/snacks every 3-4 hours, has switched to whole wheat products, has lost 13 lbs since last weight check in March Challenges: None per pt report Nutrition related Dx: E66.01 Obesity, E11.9 DM2, E55.9 Vit D deficiency Motivators: Accountability, healthy eating, weight loss, staying active for children Weight history: Steady/same over the last year Food Allergies/Intolerances: N/A Dental: N/A Appetite: Varies-one day will be super hungry but other days no appetite Grocery Shopping: [employer] Household: Self, and 2 children Cooking: Self Sleep: 7-8 hours per night GI: N/A - - - - - 24-HR Recall: Wake up: 10:00 am Breakfast: N/A Snack: N/A Lunch: 12:00-2:00pm chicken nuggets or salad (lettuce, pepperoni, onion, jalapenos, cheese, and ranch) Snack: 2:00-5:00pm fruit roll ups, pickles Dinner: 5:30pm baked chicken with veggies (green beans or asparagus) or hot dogs and fries, or hamburgers and chips Snack: Sometimes- cheese, fruit snacks and fruit rollups Beverages: Water, diet pop Physical Activity: Will walk once a week for 30 minutes Estimated Ullin x 1.2 AF: 1,500 kcals/day for 2lbs/week weight loss - - - - - OBJECTIVE: Initial weight/BMI: 301.6 lbs / 53.42kg/m2 (03/14/25) 288.4 lbs (06/08/25) weighed in office - - - - - Nutrition Rx: Plate method; non-starchy vegetables; lean, low sodium protein sources; complex carbohydrates; heart healthy fats Protein/day: 70-85g/day (0.8-1.0 g/kg adj body weight) Nutrition Dx: 1. Obesity related to limited physical activity, inconsistent energy intake/excessive carbohydrate intake, food insecurity causing patient to consume low quality foods, and limited access to nutrition education as evidenced by 24- hr recall showing intake beyond needs, reported physical activity below recommendations, positive screening for food insecurity, and BMI >30 kg/m2. 2. Inadequate nutrient intake (fiber and protein) related to nutrition knowledge deficit as evidenced by 24 hr recall showing intake below recommended amount. - - - - - INTERVENTION: Summary of Visit/Education Provided: a) Reviewed plate method b) Reviewed importance of fiber/protein for blood sugar regulation and satiety c) Reviewed importance of not skipping meals d) Discussed importance of physical activity Worked with patient to set the following goals: 1) Switch to whole grain/whole wheat products instead of white (met) 2) Eat within 2 hours of waking, small frequent meals/snacks every 3-4 hours (met) 3) Walk 2x/day week for 30 minutes - - - - - Other Relevant Information Discussed @ Visit: - Materials Provided: food bag, recipe - - - - - Monitoring/Evaluation -Weight, total intake, nutrition related lab values - - - - - RD name and contact information provided. Patient with no further nutrition- related questions at this time. Patient to follow-up with RD in 3 months.. Patient seen from 2:00-2:15 PM for a total of 15minutes spent with patient. Seen by Sebastian Parham MPH, RD, LD. 09/05/2025Obesities, morbid (ICD-10 - E66.01) Pt presents for follow up RD visit. Referred by Liyah Lozada NP Sucessful changes: Eating breakfast within 2 hours of waking, eating small, frequent meals/snacks every 3-4 hours, has switched to whole wheat products, has lost 13 lbs since last weight check in March Challenges: None per pt report Nutrition related Dx: E66.01 Obesity, E11.9 DM2, E55.9 Vit D deficiency Motivators: Accountability, healthy eating, weight loss, staying active for children Weight history: Steady/same over the last year Food Allergies/Intolerances: N/A Dental: N/A Appetite: Varies-one day will be super hungry but other days no appetite Grocery Shopping: [employer] Household: Self, and 2 children Cooking: Self Sleep: 7-8 hours per night GI: N/A - - - - - 24-HR Recall: Wake up: 10:00 am Breakfast: N/A Snack: N/A Lunch: 12:00-2:00pm chicken nuggets or salad (lettuce, pepperoni, onion, jalapenos, cheese, and ranch) Snack: 2:00-5:00pm fruit roll ups, pickles Dinner: 5:30pm baked chicken with veggies (green beans or asparagus) or hot dogs and fries, or hamburgers and chips Snack: Sometimes- cheese, fruit snacks and fruit rollups Beverages: Water, diet pop Physical Activity: Will walk once a week for 30 minutes Estimated Ullin x 1.2 AF: 1,500 kcals/day for 2lbs/week weight loss - - - - - OBJECTIVE: Initial weight/BMI: 301.6 lbs / 53.42kg/m2 (03/14/25) 288.4 lbs (06/08/25) weighed in office - - - - - Nutrition Rx: Plate method; non-starchy vegetables; lean, low sodium protein sources; complex carbohydrates; heart healthy fats Protein/day: 70-85g/day (0.8-1.0 g/kg adj body weight) Nutrition Dx: 1. Obesity related to limited physical activity, inconsistent energy intake/excessive carbohydrate intake, food insecurity causing patient to consume low quality foods, and limited access to nutrition education as evidenced by 24- hr recall showing intake beyond needs, reported physical activity below recommendations, positive screening for food insecurity, and BMI >30 kg/m2. 2. Inadequate nutrient intake (fiber and protein) related to nutrition knowledge deficit as evidenced by 24 hr recall showing intake below recommended amount. - - - - - INTERVENTION: Summary of Visit/Education Provided: a) Reviewed plate method b) Reviewed importance of fiber/protein for blood sugar regulation and satiety c) Reviewed importance of not skipping meals d) Discussed importance of physical activity Worked with patient to set the following goals: 1) Switch to whole grain/whole wheat products instead of white (met) 2) Eat within 2 hours of waking, small frequent meals/snacks every 3-4 hours (met) 3) Walk 2x/day week for 30 minutes - - - - - Other Relevant Information Discussed @ Visit: - Materials Provided: food bag, recipe - - - - - Monitoring/Evaluation -Weight, total intake, nutrition related lab values - - - - - RD name and contact information provided. Patient with no further nutrition- related questions at this time. Patient to follow-up with RD in 3 months.. Patient seen from 2:00-2:15 PM for a total of 15minutes spent with patient. Seen by Sebastian Parham MPH, RD, LD. 09/05/2025Vitamin D deficiency (ICD-10 - E55.9) Pt presents for follow up RD visit. Referred by Liyah Lozada NP Sucessful changes: Eating breakfast within 2 hours of waking, eating small, frequent meals/snacks every 3-4 hours, has switched to whole wheat products, has lost 13 lbs since last weight check in March Challenges: None per pt report Nutrition related Dx: E66.01 Obesity, E11.9 DM2, E55.9 Vit D deficiency Motivators: Accountability, healthy eating, weight loss, staying active for children Weight history: Steady/same over the last year Food Allergies/Intolerances: N/A Dental: N/A Appetite: Varies-one day will be super hungry but other days no appetite Grocery Shopping: [employer] Household: Self, and 2 children Cooking: Self Sleep: 7-8 hours per night GI: N/A - - - - - 24-HR Recall: Wake up: 10:00 am Breakfast: N/A Snack: N/A Lunch: 12:00-2:00pm chicken nuggets or salad (lettuce, pepperoni, onion, jalapenos, cheese, and ranch) Snack: 2:00-5:00pm fruit roll ups, pickles Dinner: 5:30pm baked chicken with veggies (green beans or asparagus) or hot dogs and fries, or hamburgers and chips Snack: Sometimes- cheese, fruit snacks and fruit rollups Beverages: Water, diet pop Physical Activity: Will walk once a week for 30 minutes Estimated Ullin x 1.2 AF: 1,500 kcals/day for 2lbs/week weight loss - - - - - OBJECTIVE: Initial weight/BMI: 301.6 lbs / 53.42kg/m2 (03/14/25) 288.4 lbs (06/08/25) weighed in office - - - - - Nutrition Rx: Plate method; non-starchy vegetables; lean, low sodium protein sources; complex carbohydrates; heart healthy fats Protein/day: 70-85g/day (0.8-1.0 g/kg adj body weight) Nutrition Dx: 1. Obesity related to limited physical activity, inconsistent energy intake/excessive carbohydrate intake, food insecurity causing patient to consume low quality foods, and limited access to nutrition education as evidenced by 24- hr recall showing intake beyond needs, reported physical activity below recommendations, positive screening for food insecurity, and BMI >30 kg/m2. 2. Inadequate nutrient intake (fiber and protein) related to nutrition knowledge deficit as evidenced by 24 hr recall showing intake below recommended amount. - - - - - INTERVENTION: Summary of Visit/Education Provided: a) Reviewed plate method b) Reviewed importance of fiber/protein for blood sugar regulation and satiety c) Reviewed importance of not skipping meals d) Discussed importance of physical activity Worked with patient to set the following goals: 1) Switch to whole grain/whole wheat products instead of white (met) 2) Eat within 2 hours of waking, small frequent meals/snacks every 3-4 hours (met) 3) Walk 2x/day week for 30 minutes - - - - - Other Relevant Information Discussed @ Visit: - Materials Provided: food bag, recipe - - - - - Monitoring/Evaluation -Weight, total intake, nutrition related lab values - - - - - RD name and contact information provided. Patient with no further nutrition- related questions at this time. Patient to follow-up with RD in 3 months.. Patient seen from 2:00-2:15 PM for a total of 15minutes spent with patient. Seen by Sebastian Parham MPH, RD, LD. Plan Of Treatment Next Appt Details Provider Name:Enedina Deanna, 08:00:00 AM, [address], [place], [address], Provider Name:Sebastian Castillo , 10/24/2025 10:30:00 AM, [address] [facility], [address], [place], [address], Provider Name:Diana Cabrera, 02/06/2026 10:20:00 AM, [address], [place], [address], Progress Notes * BERRY DIMAS LDOB:1994 (29 yo F)Acc No.[id number]:09/05/2025 Patient:?BERRY DIMAS :?SEBASTIAN PARHAM RDDOB:1995???Age:29 Y ???Sex:FemaleDate:09/05/2025Phone:[phone]:[address] [id number]:Liyah Lozada Subjective: * Chief Complaints: * D ietitian F/U Assessment: * Assessment: 1.?Type 2 diabetes mellitus without complication, without long-term current use of insulin - E11.9 (Primary)???2.?Obesities, morbid - E66.01???3.?Vitamin D deficiency - E55.9???Pt presents for follow up RD visit. Referred by Liyah Lozada NP Sucessful changes: Eating breakfast within 2 hours of waking, eating small, frequent meals/snacks every 3-4 hours, has switched to whole wheat products, has lost 13 lbs since last weight check in March Challenges: None per pt report? Nutrition related Dx: E66.01 Obesity, E11.9 DM2, E55.9 Vit D deficiency Motivators: Accountability, healthy eating, weight loss, staying active for children Weight history: Steady/same over the last year Food Allergies/Intolerances: N/A Dental: N/A Appetite: Varies-one day will be super hungry but other days no appetite? Grocery Shopping: [employer] Household: Self, and 2 children? Cooking: Self Sleep: 7-8 hours per night GI: N/A - - - - - 24-HR Recall: Wake up: 10:00 am? Breakfast: N/A Snack: N/A Lunch: 12:00-2:00pm chicken nuggets or salad (lettuce, pepperoni, onion, jalapenos, cheese, and ranch) Snack: 2:00-5:00pm fruit roll ups, pickles Dinner: 5:30pm baked chicken with veggies (green beans or asparagus) or?hot dogs and fries, orhamburgers and chips Snack: Sometimes- cheese, fruit snacks and fruit rollups Beverages: Water, diet pop Physical Activity: Will walk once a week for 30 minutes? Estimated Ullin x 1.2 AF: 1,500 kcals/day for 2lbs/week weight loss - - - - - OBJECTIVE: Initial weight/BMI: 301.6 lbs / 53.42kg/m2 (03/14/25) 288.4 lbs (06/08/25) weighed in office - - - - - Nutrition Rx: Plate method; non-starchy vegetables; lean, low sodium protein sources; complex carbohydrates; heart healthy fats Protein/day: 70-85g/day (0.8-1.0 g/kg adj body weight) Nutrition Dx: 1. Obesity related to limited physical activity, inconsistent energy intake/excessive carbohydrate intake, food insecurity causing patient to consume low quality foods, and limited access to nutrition education as evidenced by 24- hr recall showing intake beyond needs, reported physical activity below recommendations, positive screening for food insecurity, and BMI >30 kg/m2. 2. Inadequate nutrient intake (fiber and protein) related to nutrition knowledge deficit as evidenced by 24 hr recall showing intake below recommended amount. - - - - - INTERVENTION: Summary of Visit/Education Provided: a) Reviewed plate method b) Reviewed importance of fiber/protein for blood sugar regulation and satiety c) Reviewed?importance of not skipping meals d) Discussed importance of physical activity Worked with patient to set the following goals: 1) Switch to whole grain/whole wheat products instead of white (met) 2) Eat within 2 hours of waking, small frequent meals/snacks every 3-4 hours (met) 3) Walk 2x/day week for 30 minutes - - - - - Other Relevant Information Discussed @ Visit: - Materials Provided: food bag, recipe - - - - - Monitoring/Evaluation -Weight, total intake, nutrition related lab values - - - - - RD name and contact information provided. Patient with no further nutrition- related questions at this time. Patient to follow-up with RD in 3 months.. Patient seen from 2:00-2:15 PM for a total of 15minutes spent with patient. Seen by Sebastian Parham MPH, RD, LD. Billing Information: * Procedure Codes: * Electronic signature of Sebastian Parham RD on 09/21/2025 at 01:00 PM ESTSign off status: Pending * Provider: Miri PARHAM RD Date: 11/05/2024 Generated for Printing/Faxing/eTransmitting on:?09/21/2025 01:00 PM EST
--- OUTSIDE RECORDS SUMMARY | 2025-09-21 12:59 | XMS_ITS | Clinical Summary ---
Author Organization [facility] Address [address] [place] [address] Care Team Providers Care Employment Evaluator/Case Manager Name Role Phone Unavailable Primary Care Provider Unavailabl e Allergies Active AllergyReactionsCriticalityNoted WsdiImlbyhtsHrqksVjnzNjp77/25/2016 Medications MedicationSigDispense QuantityRefillsLast FilledStart DateEnd DateStatus busPIRone (Buspar) 10 MG tablet take 1 tablet orally twice a day if tnclrh6309/30/2023ctive Vraylar 1.5 MG capsule take 1 capsule orally once dailyActive Trulicity 0.75 MG/0.5ML solution pen-injector inject 0.75 milligram subcutaneously ONCE A WEEK02/17/2024ctive hydrOXYzine HCl (Atarax) 25 MG tablet 1 (one) time each day at the same timeActive Droplet Pen [place] 31G X 8 MM [facility] use 1 PEN NEEDLE to inject MEDICATION [...] InformationValueDate RecordedSex Assigned at BirthNot on fileLegal SjvTlchye56/15/2023 6:42 PM EDTGender Identity Not on fileSexual OrientationNot on file Last Filed Vital Signs Vital SignReadingTime TakenCommentsBlood Jftzulod758/8606 12:12 PM EDT Borxy261104/18/2024 12:12 PM ADYDaafttksoos94.7 ??C (98 ??F)04/18/2024 12:12 PM EDTRespiratory Mmgt213304/18/2024 12:12 PM EDTOxygen Icprrpgfcp72%04/18/2024 12:12 PM EDTInhaled Oxygen Concentration--Dlsktn313 kg (276 lb 6.4 oz)04/18/2024 12:12 PM KTSHqxikx825.1 cm (5' 5 )09/28/2021 12:00 PM ESTBody Mass Cwaiy736009/28/2021 12:00 PM EST Plan of Treatment Not on file Insurance
--- OUTSIDE RECORDS SUMMARY | 2025-09-21 12:59 | XMS_ITS | Clinical Summary ---
Author Organization [facility] Address [address] [place] [address] Care Team Providers Care Grain Merchandising Manager Name Role Phone Liyah Lozada HEEL BOOM OPERATOR Primary Care Provider [phone] Allergies No known active allergies Medications MedicationSigDispense QuantityRefillsLast FilledStart DateEnd DateStatus ergocalciferol, vitamin D2, (DRISDOL) 50,000 unit capsule Take 1 capsule by mouth once each week. 4 capsule Active Encounters DateTypeDepartmentCare SpghIgbxzemhwqd40/17/2025Telephone Urology [address] [place] [address] José Luis Lentz MD Patient Questionfrom Last 3 Months Family History Medical HistoryRelationCommentsFibromyalgiaMotherRelationStatusCommentsMother Social History Tobacco UseTypesPacks/DayYears UsedDateSmoking Tobacco: Every DayCigarettes Smokeless Tobacco: Never Comments:4-5 a day Alcohol UseStandard Drinks/WeekCommentsNo0 (1 standard drink = 0.6 oz pure alcohol)PHQ-2AnswerDate RecordedPHQ-2 knour741Area Deprivation Index AnswerDate RecordedNational Score (1-100), lower number is lower riskNot on file 10/11/2020State Score (1-10), lower number is lower riskNot on file10/11/2020 Data from: https://www.neighborhoodatlas.medicine.[facility].edu/. Last address used for calculationNot on file10/11/2020CommentsUnknownSex and Gender InformationValueDate RecordedSex Assigned at BirthNot on fileLegal SexFemale 02/04/2017 4:30 PM EDTGender IdentityNot on fileSexual OrientationNot on file Last Filed Vital Signs Vital SignReadingTime TakenCommentsBlood Iqfescxk749/8311/25/2018 2:01 PM EST Nftar400911/25/2018 2:01 PM WNBDmoegammcjg56.8 ??C (98.2 ??F)11/25/2018 2:01 PM ESTRespiratory Rate--Oxygen Saturation--Inhaled Oxygen Concentration--Weight 110.9 kg (244 lb 8 oz)11/25/2018 2:01 PM KJAHnqjjh646.2 cm (5' 5.83 )11/25/2018 2:01 PM ESTBody Mass Index39.67011/25/2018 2:01 PM EST Plan of Treatment Health MaintenanceDue DateLast DoneCommentsAnxiety Rzywyksmh92/16/2011Depression Rnrrvjbjc84/16/2011HIV Ttbjgqcyi06/16/2011Hepatitis C Nzbodurfs21/16/2011 DTaP,Tdap,Td Vaccine (1 - Tdap)2012Hepatitis B Vaccine (1 of 3 - 19+ 3- dose series)2012Cervical Cancer Qwrbetljz87/16/2014HPV Vaccine (1 - 3-dose SCDM series)2020Covid-19 Vaccine ( - season)2025Influenza Vaccine (#1)2025 Procedures Procedure NamePriorityDate/TimeAssociated DiagnosisCommentsCT OUTSIDE CD DICOM GCLJOE4408/18/2025 from Last 3 Months Results * CT-CT abdomen pelvis wo con IMPORT (08/18/2025)Anatomical RegionLaterality ModalityOtherSpecimen (Source)Anatomical Location / LateralityCollection Method / VolumeCollection TimeReceived Time08/18/2025 Narrative 08/20/2025 5:31 AM EDT Images were obtained outside of [facility] Procedure Note Provider, [facility] [place] - 08/20/2025 Images were obtained outside of [facility] Authorizing ProviderResult TypeResult StatusCcf ProviderRADIOLOGYFinal Result from Last 3 Months Insurance * Guarantor: Nicole BenderAccount TypeRelation to PatientDate of BirthPhone Billing AddressPersonal/DpdczzRlgw[address] [facility] [place] [address] Care Teams Team MemberRelationshipSpecialtyStart DateEnd Date Liyah Lozada NP [address] [place] [address] PCP - GeneralFamily Medicine11/26/18
--- OUTSIDE RECORDS SUMMARY | 2025-09-21 13:00 | XMS_ITS | Clinical Summary ---
Author Organization [facility] Address [address] [place] [address] Care Team Providers Care Manager Nc Name Role Phone Unavailable Primary Care Provider Unavailabl e Social History Tobacco UseTypesPacks/DayYears UsedDateSmoking Tobacco: Never Assessed CommentsUnknownSex and Gender InformationValueDate RecordedSex Assigned at Not on fileLegal DqkIjjmtf44/04/2017 1:41 PM EDTGender IdentityNot on fileSexual OrientationNot on file Plan of Treatment Not on file
--- OUTSIDE RECORDS SUMMARY | 2025-09-21 13:00 | XMS_ITS | Patient Health Record ---
Author Organization [employer] es Address [address] [place] [address] Care Team Providers Care Supervisor Adult Education Name Role Phone Liyah Lozada Primary Care Provider Dr. Massimo Montez Unavailable [phone] Guerita Conn Unavailable [phone] Cinthia Montes Unavailable [phone] Sebastian Grigsby Unavailable [phone] DeannaEnedina Unavailable [phone] Allergies Allergen (clinical drug ingredient) Drug/Non Drug Allergy documented on EMR Reaction Allergy Type Onset Date Status VicodinrashDrug AllergyActivehydrocodoneHydrocodoneanaphylaxisDrug AllergyActive Results Component Value Reference Range Flag Notes Complete Blood Count Auto Di ff Reviewed date:08/09/2025 09:44:06 AM Interpretation: Performing Lab:, [facility], [address] [place] Notes/Report: Reason for Exam Boil, buttock White Blood Count 10.0 3.8-11.6 [CFU]/mL N Uncorrected WBC10.03.8-11.6 10*3/uLNRed Blood Count4.773.60-5.00 10*6/uLN Nidvhvhgcl27.311.8-15.4 g/oYVIevrotduuk48.834.0-46.4 %NMean Corpuscular Volume 83.480-100 fLNMean Corpuscular Vltagdfqdl06.824.7-34.3 pgNMean Corpuscular HGB Conc33.332.0-35.0 g/dLNRed Cell Distribution Width13.911.9-15.3 %NPlatelet Count 186484-647 10*3/uLNMean Platelet Volume8.76.3-10.7 fLNNeutrophils % (Auto)47.8. %Lymphocytes % (Auto)42.8. %Monocytes % (Auto)6.3. %Eosinophils % (Auto)2.4. % Basophils % (Auto)0.7. %NRBC%0.20-0.5 /100{WBC}NNeutrophils # (Auto)4.81.8-7.7 10*3/uLNLymphocytes # (Auto)4.31.00-4.8 10*3/uLNMonocytes # (Auto)0.60.0-0.8 10*3/uLNEosinophils # (Auto)0.20.0-0.45 10*3/uLNBasophils # (Auto)0.10.0-0.2 10*3/uLNHemoglobin A1c Reviewed date:03/14/2025 04:52:10 PM Interpretation:5.5 Performing Lab: Notes/Report: 5.5Hemoglobin A1c5.55 - 7.9 %Thyroid Stim Hormone w/Rflx Reviewed date:08/09/2025 09:39:47 AM Interpretation: Performing Lab: Notes/Report: Reason for Exam Boil, buttock Reason for Exam Type 2 diabetes mellitus without complication, without long-Thyroid Stim Hormone w/Rflx1.560.45-5.33 u[iU]/mLN Lipid Panel Reviewed date:08/09/2025 09:39:53 AM Interpretation: Performing Lab: Notes/Report: Reason for Exam Boil, buttock Reason for Exam Type 2 diabetes mellitus without complication, without qizn-Addcboeraia707868-746 mg/dLN Chol less than 200 mg/dl low risk Chol 201-239 mg/dl borderline risk Chol 240 mg/dl and greater high risk HDL Oeiiwzlcimk9923-54 mg/dLN HDL CHOL ATP-III CLASSIFICATION Cardiovascular Risk HDL > or equal to 60 mg/dL LOW HDL < 40 mg/dL HIGH Triglyceride w/Gfwkmy5200-933 mg/dLN TRIG ATP III CLASSIFICATION TRIG less than 150 mg/dL Normal TRIG 150-199 mg/dL Borderline high TRIG 200-500 mg/dL High TRIG greater than 500 mg/dL Very high Standard traceable to the Center for Disease Conrtrol and Prevention (CDC) test method. LDL Cholesterol,Nrygfcwipe605-288 mg/dLN LDL ATP III CLASSIFICATION LDL less than 100 mg/dL Optimal LDL 100-129 mg/dL Near or above optimal LDL 130-159 mg/dL Borderline high LDL 160-189 mg/dL High LDL greater than 189 mg/dL Very high VLDL KTWYLUFYAYE30Cjox/HDL Ratio3.0<5.0Comprehensive Metabolic Panel Reviewed date:08/09/2025 09:39:59 AM Interpretation: Performing Lab:, [facility], [address] Notes/Report: Reason for Exam Boil, buttock Reason for Exam Type 2 diabetes mellitus without complication, without wnxb-Kapzqpu0606-927 mg/dLN Random Glucose Reference Range is dependent on time and content of last meal. Glucose of more than 200 mg/dL in a nonstressed, ambulatory subject supports the diagnosis of Diabetes Mellitus. ADA recommended reference range Blood Urea Jpkbinep094-97 mg/dLNCreatinine0.780.60-1.20 mg/vJFAcqhmk734318-808 mmol/LNPotassium5.13.5-5.1 mmol/PKCatfbjhr64172-092 mmol/LNCarbon Ocqdugl49.3 21.0-31.0 mmol/LNCalcium9.78.6-10.3 mg/dLNTotal Protein7.66.4-8.9 g/dLNAlbumin Level4.53.5-5.7 g/dLNGlobulin3.1Albumin/Globulin Ratio1.5Bilirubin,Total0.30.3- 1.0 mg/dLNAspartate Amino Vecjeyrpgbw2142-60 U/LNAlanine Ridhbxjsxticdvpf113-05 U/LNAlkaline Sukwwdxwfiw5479-688 U/LNEstimated GFR>60.0Anion Gap12.86.0-15.0NA1C with Estimated Average Glu Reviewed date:08/09/2025 10:33:28 AM Interpretation: Performing Lab:, [facility], [address] Notes/Report: Reason for Exam Type 2 diabetes mellitus without complication, without long-Hemoglobin A1C5.74.3-5.6 %H Increased risk for diabetes: 5.7 - 6.4 diabetes: >6.4 glycemic control for adults with diabetes: <7.0 Estimated Average Zgxxulv807Zcoznbm Stim Hormone w/Rflx Reviewed date:03/20/2025 08:12:49 PM Interpretation: Performing Lab: Notes/Report: Reason for Exam Iron deficiency Reason for Exam Type 2 diabetes mellitus without complication, without long-Thyroid Stim Hormone w/Rflx3.160.45-5.33 u[iU]/mLN Comprehensive Metabolic Panel Reviewed date:03/20/2025 08:12:40 PM Interpretation: Performing Lab:, [facility], [address], [place] Notes/Report: Reason for Exam Iron deficiency Reason for Exam Type 2 diabetes mellitus without complication, without rilr-Iffbyqe2687-777 mg/dLN Random Glucose Reference Range is dependent on time and content of last meal. Glucose of more than 200 mg/dL in a nonstressed, ambulatory subject supports the diagnosis of Diabetes Mellitus. ADA recommended reference range Blood Urea Pzocbezb285-64 mg/dLNCreatinine0.800.60-1.20 mg/sHYWflyrs068665-880 mmol/LNPotassium4.33.5-5.1 mmol/NJZstrbvtv12235-780 mmol/LNCarbon Zyywnjm70.4 21.0-31.0 mmol/LNCalcium8.78.6-10.3 mg/dLNTotal Protein6.96.4-8.9 g/dLNAlbumin Level4.03.5-5.7 g/dLNGlobulin2.9Albumin/Globulin Ratio1.4Bilirubin,Total0.40.3- 1.0 mg/dLNAspartate Amino Xmcqvwrohos3825-49 U/LNAlanine Delvomrduqqkgtbz122-52 U/LNAlkaline Lmvvmamxhrf1369-283 U/LNEstimated GFR>60.0Anion Gap10.96.0-15.0 meq/LNUrinalysis automated (Not yet reviewed by provider) Interpretation: Performing Lab: Notes/Report: Urine-ColoryellowAppearanceclearSpecific Gravity1.015pH6.0GlucoseNEGProteinNEG Occult BloodPOSBilirubinNEGUrobilinogen,Semi-QnNEGNitrite, UrineNEGKetonesNEGWBC EsteraseNEGUrinalysis Gross ExamNEGIron and TIBC Profile Reviewed date:03/20/2025 08:14:12 PM Interpretation: Performing Lab: Notes/Report: Reason for Exam Iron deficiency Reason for Exam Type 2 diabetes mellitus without complication, without coku-Lkob5820-201 ug/dLNTotal Iron Binding Albtydlg066613- 450 ug/dLN% Iron Aiwphqinmf52.320-50 %NGhvjvnvoupz019934-867 mg/dLNURINE - Urinary Tract Infection + High Risk Sexual Behavior (HTRx) Reviewed date:08/11/2025 12:47:50 PM Interpretation: Performing Lab: Notes/Report:tet B, tet M25.28776.000 - 27.500 ppmtet B, tet XMioepgud35.000 - 27.500 ppmTrichomonas pzprngcyh985.000 - 31.995 ppmTrichomonas vaginalisNot Etwtqjba09.000 - 31.995 ppmStreptococcus pyogenes (Group A strep)019.961 - 24.689 ppmStreptococcus pyogenes (Group A strep)Not Qkhrqbad40.961 - 24.689 ppm Streptococcus agalactiae (Group B Strep)026.000 - 32.435 ppmStreptococcus agalactiae (Group B Strep)Not Iriotjcc75.000 - 32.435 ppmStaphylococcus aureus0 26.000 - 31.595 ppmStaphylococcus aureusNot Mevkludo71.000 - 31.595 ppmSerratia mubaafabnm700.000 - 31.581 ppmSerratia marcescensNot Eyatvkss70.000 - 31.581 ppm Pseudomonas xmcdiwhlnh149.000 - 31.801 ppmPseudomonas aeruginosaNot Detected 23.000 - 31.801 ppmProteus mirabilis, tsmeespy042.000 - 28.500 ppmProteus mirabilis, vulgarisNot Qtyshnhs37.000 - 28.500 ppmNeisseria bvajvoipvdr872.000 - 32.587 ppmNeisseria gonorrhoeaeNot Wlytpdoe88.000 - 32.587 ppmKlebsiella pneumoniae, .000 - 31.865 ppmKlebsiella pneumoniae, oxytocaNot Kyxjtkpk70.000 - 31.865 ppmEscherichia krdt623.000 - 28.500 ppmEscherichia coli Not Dqmolqbi71.000 - 28.500 ppmEnterococcus faecalis, aknszjl734.000 - 33.043 ppmEnterococcus faecalis, faeciumNot Jdhowffn67.000 - 33.043 ppmEnterobacter aerogenes, jxyxvfg676.000 - 32.290 ppmEnterobacter aerogenes, cloacaeNot Hvehhhwf39.000 - 32.290 ppmCitrobacter ofrqdadf444.000 - 32.015 ppmCitrobacter freundiiNot Xgfdbgtr32.000 - 32.015 ppmChlamydia kyhtpqglknr784.000 - 31.586 ppm Chlamydia trachomatisNot Lqlavqdp45.000 - 31.586 ppmAcinetobacter baumannii0 19.961 - 24.689 ppmAcinetobacter baumanniiNot Abuklvyf28.961 - 24.689 ppm Morganella enjvwpwr856.961 - 24.689 ppmMorganella morganiiNot Xrlfvcjg78.961 - 24.689 ppmCandida albicans, parapsilosis, korgdzzggb742.000 - 30.347 ppmCandida albicans, parapsilosis, tropicalisNot Vpfhlowi91.000 - 30.347 ppmCandida glabrata (Nakaseomyces glabratus)023.000 - 31.618 ppmCandida glabrata (Nakaseomyces glabratus)Not Vrvghtpz40.000 - 31.618 ppmCandida krusei (Pichia kudriavzevii)023.000 - 30.873 ppmCandida krusei (Pichia kudriavzevii)Not Pefgrgee95.000 - 30.873 ppmMycoplasma xvyjguwxlm109.961 - 24.689 ppmMycoplasma genitaliumNot Rxugocve01.961 - 24.689 ppmMycoplasma ovjbkch112.961 - 24.689 ppm Mycoplasma hominisNot Uhssmqzv06.961 - 24.689 ppmStaphylococcus saprophyticus0 19.961 - 24.689 ppmStaphylococcus saprophyticusNot Layxvpxe91.961 - 24.689 ppm Staphylococcus epidermidis, haemolyticus, iauvwotxaqe009.961 - 24.689 ppm Staphylococcus epidermidis, haemolyticus, lugdunensisNot Tzfhokyd09.961 - 24.689 ppmUreaplasma gojtluauiml614.961 - 24.689 ppmUreaplasma urealyticumNot Detected 19.961 - 24.689 ppmUreaplasma .0919.961 - 24.689 ppmUreaplasma parvum Ypubrduy00.961 - 24.689 ppmComplete Blood Count Auto Diff Reviewed date:03/20/2025 08:12:30 PM Interpretation: Performing Lab:, [facility], [address] [place] Notes/Report: Reason for Exam Type 2 diabetes mellitus without complication, without long-White Blood Count10.03.8-11.6 10*3/uLNUncorrected WBC 10.03.8-11.6 10*3/uLNRed Blood Count4.603.60-5.00 10*6/nNWBvughqczza31.611.8- 15.4 g/tNBNdsriuvlrd81.934.0-46.4 %NMean Corpuscular Lnemns43.380-100 fLNMean Corpuscular Ihxetdlpuf68.524.7-34.3 pgNMean Corpuscular HGB Conc33.432.0-35.0 g/dLNRed Cell Distribution Width14.211.9-15.3 %NPlatelet Gtoav402764-732 10*3/uL NMean Platelet Volume8.06.3-10.7 fLNNeutrophils % (Auto)51.7. %Lymphocytes % (Auto)42.7. %Monocytes % (Auto)4.3. %Eosinophils % (Auto)1.1. %Basophils % (Auto)0.2. %NRBC%0.10-0.5 /100{WBC}NNeutrophils # (Auto)5.21.8-7.7 10*3/uLN Lymphocytes # (Auto)4.31.00-4.8 10*3/uLNMonocytes # (Auto)0.40.0-0.8 10*3/uLN Eosinophils # (Auto)0.10.0-0.45 10*3/uLNBasophils # (Auto)0.00.0-0.2 10*3/uLN Reason For Referral Reason FIM program, diabeti c diet education TE 5/14 Diagnosis 1 Obesities, morbid (E 66.01) Referral Organization [facility] Referring Provider First Name Liyah Referring Provider Last Name Kierra Referring Provider Speciality Nurse Mauro valencia Referred Provider Specialty Associate Partner Referral Priority Routine Medications Medication SIG (Take, [...] 5/16 Miscellaneousas directed SQ daily; Duration: 30 days3Active Immunizations Vaccine Route Administration Date Status Comme [...] hurting yourself in some wayNot at allTotal Xalfs7Luauydswn abuse/mental health issues of patient/familyPatient -Caffeine Use,AlcoholAbility [...] in the past year?Less than monthly (1 point)Ixhoqv3JsowveowhvvktkBajqphiqTofxcvn Use:Social InfoQuestionAnswerNotesTobacco Control (Standard)Tobacco use: Nonsmoker Problems Problem Type SNOMED Code ICD Code Onset Dates Problem Status W/U Status Risk Notes Problem Hidradenitis suppurativa (83556893) Hidra denitis suppurativa (L73.2) ActiveconfirmedProblemVitamin D deficiency (53187341)Vitamin D deficiency (E55.9)ActiveconfirmedProblemAnxiety (73598235)Anxiety (F41.9)Activeconfirmed ProblemGoiter (2681026)Enlarged thyroid (E04.9)ActiveconfirmedProblemType II diabetes mellitus without complication (167737435)Type 2 diabetes mellitus without complication, without long-term current use of insulin (E11.9)Active confirmedProblemMorbid obesity (479918225)Obesities, morbid (E66.01)Active confirmedProblemMixed anxiety and depressive disorder (562461338)Mixed anxiety and depressive disorder (F41.8)Activeconfirmed Vital Signs Heart Rate 75 /min 08/08/2025 Mqoyvvefbqg97.0 degrees Zeiymcdjhb15/07/2025Respiratory Rate18 /min08/08/2025 Svezthxz17 %08/08/2025lood pressure zjjyecytx77 mm Hg08/08/20252569Eidpmc7xy 3in in 08/08/2025lood pressure yezlbolr920 mm Hg08/08/20250228Xwjvkm047 lbs1MI 50.83 kg/m208/08/2025 Encounters Encounter Location Date Provider Diagnosis [facility] [address] [place] [address] 09/27/2024 [facility] [place] [address]/ [facility] [place] [address] 03/20/2025[facility] [place] [address]/08/2025Laura SpasicIron deficiency E61.1[facility] [place] [address]/[facility] [place] [address] 08/09/2025[facility] [place] [address]Laura SpasicAcute UTI N39.0[facility] [place] [address]/[facility] [address] [place] [address]/[facility] [place] [address]/[facility] [facility] [place] [address]/[facility] SpasicIron deficiency E61.1 ; Type 2 diabetes mellitus without complication, without long- term current use of insulin E11.9 ; Mixed anxiety and depressive disorder F41.8 ; Boil, buttock L02.32 ; Gasping for breath R06.89 and Obesities, morbid E66.01 [facility] [place] [address]/ Enedina YiDental caries on pit and fissure surface penetrating into dentin K02.52 [facility] [place] [address]/ Cinthia SaricDental caries on pit and fissure surface penetrating into dentin K02.[address] [place] [address]/11/2024 Sebastian KasperType 2 diabetes mellitus without complication, without long-term current use of insulin E11.9 ; Obesities, morbid E66.01 and Vitamin D deficiency E55.[address] [address]/05/2025 Sebastian KasperType 2 diabetes mellitus without complication, without long-term current use of insulin E11.9 ; Obesities, morbid E66.01 and Vitamin D deficiency E55.[address] [place] [address]/05/2025 Liyah SpasicUrinary frequency R35.0 ; Boil, buttock L02.32 ; Hidradenitis suppurativa L73.2 ; Vitamin D deficiency E55.9 and Type 2 diabetes mellitus without complication, without long-term current use of insulin E11.9 Assessments Encounter Date Diagnosis (ICD Code) Assessment Notes Treatment Notes Treatment Clinical Notes Section Notes 10/31/2024 Dental caries on pit and fissure surface penetrating into dentin (ICD-10 - K02.52) 03/14/2025Iron deficiency (ICD-10 - E61.1)continue iron supplement, increase oral fluids and advised to take stool softener as iron can causeconstipation. Also can change color of stool. Will repeat cbc and iron studies to monitor effectiveness. Discussed foods rich an iron.03/14/2025Type 2 diabetes mellitus without complication, without long-term current use of insulin (ICD-10 - E11.9) AIC is below goal of 7.0. Continue same [...] you develop any sores/concern RTO. F/U 3 erlydv0303/20/2025Iron deficiency (ICD-10 - E61.1)04/11/2025Iron deficiency (ICD-10 - E61.1)06/08/2025 Type 2 diabetes mellitus without complication, without [...] once a week for 30 minutes Estimated Fieldon x 1.2 AF: 1,500 kcals/day for 2lbs/week [...] but other days no appetite Grocery Shopping: [employer] Household: Self, and 2 children Cooking: Self [...] once a week for 30 minutes Estimated Fieldon x 1.2 AF: 1,500 kcals/day for 2lbs/week [...] but other days no appetite Grocery Shopping: [employer] Household: Self, and 2 children Cooking: Self [...] once a week for 30 minutes Estimated Fieldon x 1.2 AF: 1,500 kcals/day for 2lbs/week [...] but other days no appetite Grocery Shopping: [employer] Household: Self, and 2 children Cooking: Self [...] once a week for 30 minutes Estimated Fieldon x 1.2 AF: 1,500 kcals/day for 2lbs/week [...] - Ordered urinalysis to evaluate urinary symptoms. 5Boil, buttock (ICD-10 - L02.32)warm compresses, gently aspirate d/c, keep dry and covered, oral antibiotic, take until gone.5Acute UTI (ICD- 10 - N39.0)08/15/2025Dental caries on [...] but other days no appetite Grocery Shopping: [facility] Household: Self, and 2 children Cooking: Self [...] once a week for 30 minutes Estimated Fieldon x 1.2 AF: 1,500 kcals/day for 2lbs/week [...] have persisted for years, sometimes improving with nmuo-ino-gwkrgiu creams. 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 - Recommended topical treatment [...] once a week for 30 minutes Estimated Fieldon x 1.2 AF: 1,500 kcals/day for 2lbs/week [...] Vit D.03/14/2025Obesities, morbid (ICD-10 - E66.01)referral to [facility] and FIM program. Counseled pt on diet [...] you develop any sores/concern RTO. F/U 3 vfacuy8608/08/2025Otherbody mass index Plan Of Treatment Pending Test Test Name Order Date Urinalysis automated 08/08/2025 Next Appt Details Provider Name:Enedina Deanna, 08:00:00 AM, [address] [place], [address], Provider Name:Sebastian Castillo er, 10/24/2025 10:30:00 AM, [address] [place], [address], Provider Name:Diana Cabrera, 02/06/2026 10:20:00 AM, [address] [place], [address], Insurance Providers Payer Name Payer Address Payer Phone Subscriber Number Group Number Insured Name Patient Relationship to Insured Coverage Start Date Coverage End Date [employer] [place] Medicaid [address] [place] [address] [id number] Yahir DIMAS - patient is the bwflcpx9812/03/2022Wrap [facility] CareSourcO [address] [place] [id number], ASHLEYSelf - patient is the fxopsuh3812/03/2022z[employer]-termed 12/02/22[address] [place] [id number], ASHLEYSelf - patient is the voxxftn04zMEDICAID [facility] after [employer] 12/02/22 [address] [place] [id number], ASHLEYSelf - patient is the thxkswl02zDENTAL [employer] 12/02/[address] [place] [phone], ASHLEYSelf - patient is the buspvfc77zDental MEDICAID [facility] after [employer] 12/02/[address] [place] [phone] [id number], ASHLEYSelf - patient is the wsbxjow0012/03/2017 3Dental [employer] [facility] [address] [place] [address] [id number], ASHLEYSelf - patient is the insured 12/03/2022ental Wrap [facility] CareSourcePO [address] [place] [phone] [id number], ASHLEYSelf - patient is the fbhszyg2912/03/2022 Medical (General) History Medical History History ICD Code Alopecia Surgical History Surgery Date(Month/Year) C section 2017 Hospitalization History Reason Date(Month/Year) vaginal 2016 child 2017
--- OUTSIDE RECORDS SUMMARY | 2025-09-21 13:01 | XMS_ITS | Clinical Summary ---
Author Organization [facility] [place] [address] Care Team Providers Care Candy Cooker Helper Name Role Phone Michael Webb MD Primary Care Provider [phone] Michael Webb MD Unavailable Allergies Active AllergyReactionsCriticalityNoted AipjTndauwqcBdmgoBskf41/25/2016 Medications MedicationSigDispense QuantityRefillsLast FilledStart DateEnd DateStatus Vit-Fe Fumarate-FA (PNV PLUS MULTIVITAMIN) 27-1 MG TABS 12/03/2015Active IBUPROFEN PO Take by mouth Pt unsure of the dosage, but she will take as needed, and says that she takes it about every few days.Active Active Problems Patient Care Coordination No te Formatting of this note is d ifferent from the original. [facility] Plan of care (Jon) Ours Diagnosis: Duodenal [...] been completed. 5. Delivery is recommended in [place] with follow up as indicated. A transfer of care has been accomplished. 6. Mode of delivery is based on the usual obstetrical indications. 7. Delivery is recommended at 39 weeks given need for coordinated care. 8. Neonatology to be present at delivery to evaluate and stabilize and to transport to [facility]. 9. consultation with Pediatric Surgery and Cardiology. 10. Additional follow up as clinically indicated. PLAN OF CARE Nicole Bender is 21 y.o. with Estimated Date [...] weekly Ultrasound: monthly growth DELIVERY PLAN Hospital: [facility] Induction at 39 weeks GBS culture: Positive Contraception: Plan of care including hospitalist coverage has been reviewed with patient input, and patient understands. Nursing Notes: ProblemNoted DateDiagnosed DateDuodenal atresia, , affecting care of mother, mwygcoqwjd36/13/2017 Overview (02/12/2017): Normal karyotype Chlamydia infection affecting in third /13/2017Short interval between pregnancies affecting in third trimester, antepartum 01/29/2017Polyhydramnios, antepartum wmjxmwzqxiij32/29/9013Evcrgsn03/25/2016 Family History Medical HistoryRelationCommentsCancerMaternal GrandmotherDiabetesMaternal GrandmotherHypertensionMaternal GrandmotherHypertensionMotherRelationStatus CommentsMaternal GrandmotherMother Social History Tobacco UseTypesPacks/DayYears UsedDateSmoking Tobacco: FormerSmokeless Tobacco: FormerAlcohol UseStandard Drinks/WeekCommentsNo0 (1 standard drink = 0.6 oz pure alcohol)CommentsNoSex and Gender InformationValueDate RecordedSex Assigned at BirthNot on fileLegal EzdPrgqov41/18/2016 2:35 PM ESTGender Identity Not on fileSexual OrientationNot on fileOccupationIndustryJob Start DateJob End DateunemployedNot on fileNot on fileNot on file Last Filed Vital Signs Vital SignReadingTime TakenCommentsBlood Pjactrdl377/8005 12:58 PM EDT Lldlb0349 1:21 PM EDTTemperature--Respiratory Rate--Oxygen Saturation-- Inhaled Oxygen Concentration--Wismxb716 kg (235 lb 12.8 oz)03/19/2017 12:58 PM CDYCiuzqw851.6 cm (5' 5.98 )02/16/2017 2:39 PM EDTBody [...] (1 - 3-dose SCDM series)2020COVID-19 ( - 2024- season)2025FLU (#1)07/03/2025HIBAged OutNo longer eligible based on [...] Webb MD [address] [place] [address] PCP - General12/20/15 Michael Webb MD [address] [place] [address] Attending Provider01/28/17
== END 2025-09-21 12:56 | disposition home or self-care (01) ==
LOC: PST 12:55
PROVIDERS: Visit Provider Urology
DX: Z01.818 Encounter for other preprocedural examination (principal); N20.0 Calculus of kidney